=== PATIENT | male | born 1995 | race Caucasian/White ===

== ENCOUNTER 2021-11-18 11:21 | Inpatient (IN) ==
[2021-11-18] MEDS ORDERED: PIPERACILL/TAZOBAC CONSULT ACTIVE PRN ×2 (11:37→16:38)
[2021-11-18] MEDS ORDERED: PIPERACILLIN/TAZOBACTAM 4.5 GM/120 ML BAG IV ONE (11:37)
[2021-11-18] MEDS ORDERED: SODIUM CHLORIDE 0.9% 500 ML IV ONE (11:37)
--- NOTE | 2021-11-18 12:10 | Emergency Department Note ---
Impression & Plan Sepsis, Abdominal pain, Hyperglycemia, Acute leg pain ED Provider Note NAME: MANOJ CORTEZ AGE: 26 SEX: M : 1995 ARRIVES VIA: Walk-In INFORMANT: Patient ED PROVIDER(S): Dionte Angelo DO CHIEF COMPLAINT: left groin/thigh pain and fever HPI: Patient is a 26-year-old male with past medical history of dialysis dependent, diabetes, GERD, previous renal transplant who presents from dialysis today. He was there he was found to be febrile and tachycardic. His potassium was 6.7. He got a full treatment of dialysis as well as blood cultures and he was given IV vancomycin. He was then transported to the ER. They believe that he has infection overlying his fistula along with a fair amount of swelling. Patient denies any headache or change in vision. No chest pain or shortness of breath. He admits to belly pain and left leg pain. He is very agitated and cursing and swearing. ROS: See above HPI for pertinent positives & negatives. A total of 10 systems reviewed and were otherwise negative. PAST MEDICAL HISTORY:See Below PAST SURGICAL HISTORY:See Below FAMILY HISTORY:See Below SOCIAL HISTORY:See Below HOME MEDICATIONS:See Below ALLERGIES:See Below VITALS:See Below PHYSICAL EXAMINATION: GENERAL: Standing on the edge of bed screaming and yelling EYE EXAM: normal conjunctiva. OROPHARYNX:mucous membranes are dry NECK: supple, no nuchal rigidity, no adenopathy, non-tender LUNGS: Clear to auscultation. Normal chest wall mechanics HEART: tachy, S1 normal and S2 normal ABDOMEN: abdomen soft, non-tender, normo-active bowel sounds, no masses, no rebound or guarding. UPPER EXTREMITIES: Fistula in left upper extremity with overlying scab and re dness. It is bulging and skin is warm. LOWER EXTREMITIES: Flexion-extension of the hips knees ankles and EHL intact. Radial pulses are 2 out of 4. Significant pain on palpation of left inguinal canal and tracking to left mid thigh. Bruising just superior to the left distal femur on the medial aspect NEURO EXAM: Normal sensorium, cranial nerves II-XII grossly intact, normal speech, no gross weakness of arms, no gross weakness of legs. MEDICAL DECISION MAKING: Patient is a 26-year-old male with extensive past medical history the presents the ER for above-stated complaint. IV was established blood work was obtained. Sepsis alert was called. He was found to be febrile and tachycardic. He was given small amount IV fluids as he is a dialysis patient and concern for volume overload. He was not given 30 cc/kg secondary to this concern. Labs show mild leukopenia 4000. Mild anemia 10. Platelets were slightly low at 84. BMP with mild hyponatremia 131 and creatinine 3.6 on dialysis. BSG was 300 and then turned up to 400. He was placed on a insulin drip and given a bolus. Trend down to mid 300s. Troponin was tactile at 40. Mild elevation in LFTs and T bili. Covid was negative. CT abdomen pelvis showed no new acute pathology. Venous Doppler was negative. Did order an arterial which was pending upon admission. Patient was also given IV Zosyn. He was updated bedside. He was given IV morphine secondary to the severe pain in his leg. He was admitted for further work-up. Initial exam evaluation was limited secondary to patient's agitation. Triage Nursing notes reviewed. Limited review of prior medical records performed Vital Signs: reviewed and remarkable for tachy and HTN Differential diagnosis: Differential diagnosis includes etiologies such as sepsis, UTI, pneumonia, metabolic, electrolyte abnormalities, cardiac sources, intracerebral event, toxicologic, neurological, as well as others were entertained. ER treatment provided: See below Diagnostics interpreted by me: ECG: Sinus tachycardia rate of 115 Normal axis No PVCs QTC 453 Cardiac Monitoring: An order was placed for continuous cardiac monitoring. The monitor shows a rate of 120 with sinus rhythm. Laboratory studies: As stated above and show below. Imaging studies: CT abdomen pelvis was unremarkable. Chest x-ray was unremarkable. Ultrasound for DVT was negative. Arterial ultrasound was pending Consultation(s): D/alfie kilgore for further evaluation Procedures: none Critical Care: I have personally spent 32 minutes of critical care time in the direct management of this patient. This includes bedside care, interpretation of diagnostic studies, and testing, discussion with consultants, patient, and family members, and other required patient management activities. This 32 minutes is in excess of all separately billable procedures. Past Med/Surg History Surgical History History of circumcision History of laparoscopy History of nephrectomy Kidney transplanted Status post biopsy of kidney Family History Grandfather No problems noted. Grandmother No problems noted. Mother Depression Anxiety Grandfather (Maternal) Heart disease Hypertension Myocardial infarction Grandmother (Maternal) Hypertension Grandfather (Paternal) Kidney disease Denies family history of Ovarian cancer Prostate cancer Lung cancer Colorectal cancer Social History Smoking Status: Current every day smoker Tobacco Type: Cigarettes Age Started Using Tobacco: 15; packs per day: 0.50; Second Hand Exposure: Yes; Hx Alcohol Use: No Hx Substance Use: No Preferred Language: Thai Communication Ability: Effective Resource Recovery Specialist Required: No marital status: Single Current Living Situation: Family Current Living Situation 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 Feels Safe at Home: Yes Childhood Exposure to Second-Hand Smoke: Yes Seatbelt Use: never Sunscreen Use: No Allergies Allergies Allergy/AdvReac Type Severity Reaction Status Date / Time baclofen Allergy Unknown HIVES Verified 04/16/20 10:59 Iodinated Contrast Media Allergy Unknown RASH Verified 04/16/20 10:59 Sulfa (Sulfonamide Allergy Unknown RASH Verified 04/16/20 10:59 Antibiotics) Home Meds Home Medications Medication Instructions Recorded Confirmed omeprazole 40 mg capsule,delayed 40 mg PO DAILY PRN cap 09/28/19 04/16/20 release Previous Rx's Medication Instructions Recorded amlodipine 10 mg tablet 10 mg PO DAILY #90 tab 09/13/19 blood sugar diagnostic (OneTouch #300 ea 09/13/19 Ultra Blue Test Strip) calcium acetate(phosphat bind) 667 667 mg PO TID #270 cap 09/13/19 mg capsule carvedilol 25 mg tablet 50 mg PO BID #360 tab 09/13/19 cholecalciferol (vitamin D3) 1,250 1,250 mcg PO WEEKLY #12 cap 09/13/19 mcg (50,000 unit) capsule cinacalcet 30 mg tablet (Sensipar) 30 mg PO DAILY #90 tab 09/13/19 lancets 28 gauge (FreeStyle #300 ea 09/13/19 Lancets) hydralazine 100 mg tablet 100 mg PO BID #180 tab 12/24/19 clonidine 0.3 mg/24 hr weekly 1 patch TOPICAL .weekly #4 ea 11/04/20 transdermal patch insulin aspart U-100 100 unit/mL See Rx Instructions SQ .COMPLEX 05/27/21 (3 mL) subcutaneous pen (Novolog #15 ml Flexpen U-100 Insulin aspart) Results & Data (ED) Vital Signs Vital Signs - 24 hr 11/18/21 11:22 11/18/21 11:48 11/18/21 11:57 Temperature 38.1 C H Temperature Source Skin Pulse Rate 122 H 116 H Pulse Rate from SpO2 Sensor Respiratory Rate 24 24 Respiratory Effort / Characteristics Non-Labored Spontaneous Respiratory Depth Normal Respiratory Pattern Regular Blood Pressure 177/118 H Blood Pressure Mean 137 Pulse Oximetry 98 97 Oxygen Delivery Method Room Air Room Air Sepsis Recent Fever Within 48 Hours Yes Sepsis New/Unexplained Change in Mental Status N/A Sepsis Action Taken by Nursing No Action Required 11/18/21 12:10 11/18/21 12:15 11/18/21 12:24 Temperature Temperature Source Pulse Rate 109 H 111 H 112 H Pulse Rate from SpO2 Sensor 109 H 110 H 117 H Respiratory Rate 20 22 24 Respiratory Effort / Characteristics Respiratory Depth Respiratory Pattern Blood Pressure 187/96 H Blood Pressure Mean 126 Pulse Oximetry 94 95 94 Oxygen Delivery Method Sepsis Recent Fever Within 48 Hours Sepsis New/Unexplained Change in Mental Status Sepsis Action Taken by Nursing 11/18/21 12:30 11/18/21 12:45 11/18/21 13:00 Temperature Temperature Source Pulse Rate 113 H 112 H 116 H Pulse Rate from SpO2 Sensor 113 H 116 H Respiratory Rate 24 20 22 Respiratory Effort / Characteristics Respiratory Depth Respiratory Pattern Blood Pressure 181/99 H 189/100 H Blood Pressure Mean 126 129 Pulse Oximetry 93 97 Oxygen Delivery Method Sepsis Recent Fever Within 48 Hours Sepsis New/Unexplained Change in Mental Status Sepsis Action Taken by Nursing 11/18/21 13:15 11/18/21 13:30 11/18/21 13:44 Temperature Temperature Source Pulse Rate 116 H 120 H Pulse Rate from SpO2 Sensor 116 H 121 H Respiratory Rate 22 19 Respiratory Effort / Characteristics Respiratory Depth Respiratory Pattern Blood Pressure 185/101 H Blood Pressure Mean 129 Pulse Oximetry 91 97 98 Oxygen Delivery Method Room Air Sepsis Recent Fever Within 48 Hours Sepsis New/Unexplained Change in Mental Status Sepsis Action Taken by Nursing 11/18/21 13:45 11/18/21 14:00 11/18/21 14:15 Temperature Temperature Source Pulse Rate 115 H 115 H 112 H Pulse Rate from SpO2 Sensor 116 H 116 H 113 H Respiratory Rate 17 22 22 Respiratory Effort / Characteristics Respiratory Depth Respiratory Pattern Blood Pressure 181/100 H Blood Pressure Mean 127 Pulse Oximetry 93 93 81 L Oxygen Delivery Method Room Air Sepsis Recent Fever Within 48 Hours Sepsis New/Unexplained Change in Mental Status Sepsis Action Taken by Nursing 11/18/21 15:00 11/18/21 15:01 Temperature Temperature Source Pulse Rate 109 H 111 H Pulse Rate from SpO2 Sensor 108 H 109 H Respiratory Rate 13 16 Respiratory Effort / Characteristics Respiratory Depth Respiratory Pattern Blood Pressure 161/88 H Blood Pressure Mean 112 Pulse Oximetry 93 95 Oxygen Delivery Method Sepsis Recent Fever Within 48 Hours Sepsis New/Unexplained Change in Mental Status Sepsis Action Taken by Nursing Laboratory Data Result diagrams: 11/18/21 11:45 11/18/21 11:45 Lab Results 11/18/21 11/18/21 11/18/21 Range/Units 11:45 11:45 11:45 WBC 4.11 L (4.8-10.8) K/uL RBC 3.07 L (4.7-6.1) M/uL Hgb 10.0 L (14.0-18.0) g/dL Hct 31.7 L (42-52) % MCV 103.3 H (80-100) fL MCH 32.6 (25-34) pg MCHC 31.5 L (32-36) g/dL RDW Std Deviation 59.2 H (36.4-46.3) fL RDW Coeff of Kaylene 15.8 H (11.5-14.5) % Plt Count 84 L (130-400) K/uL MPV 11.4 H (7.4-10.4) fL Immature Gran % (Auto) 1.7 % Neut % (Auto) 92.8 % Lymph % (Auto) 4.1 % [place] % (Auto) 0.7 % Eos % (Auto) 0.5 % Baso % (Auto) 0.2 % Neut # (Auto) 3.81 (1.4-6.5) K/uL Lymph # (Auto) 0.17 L (1.2-3.4) K/uL [place] # (Auto) 0.03 L (0.11-0.59) K/uL Eos # (Auto) 0.02 (0-0.5) K/uL Baso # (Auto) 0.01 (0-0.2) K/uL Immature Gran # (Auto) 0.07 H (0.00-0.02) K/uL Platelet Estimate Decreased L (Normal) PT 13.6 H (9.0-12.0) Seconds INR 1.3 H (0.9-1.1) APTT 44.7 H (21.0-31.0) Seconds PTT Ratio 1.6 Sodium (136-145) mmol/L Potassium (3.5-5.1) mmol/L Chloride (98-107) mmol/L Carbon Dioxide (21-32) mmol/L Anion Gap (3-11) BUN (6-23) mg/dl Creatinine (0.6-1.4) mg/dl Est Cr Clr Drug Dosing ml/min Est GFR ( Amer) ml/min Est GFR (Non-Af Amer) ml/min BUN/Creatinine Ratio (10-20) Glucose (70-99(Fasting)) mg/dl POC Glucose (70-99) mg/dl Lactate (0.4-2.0) mmol/L Calcium (8.5-10.1) mg/dl Magnesium (1.7-2.4) mg/dl Total Bilirubin (0.2-1.0) mg/dl AST (13-39) U/L ALT (7-52) U/L Alkaline Phosphatase (34-104) U/L Troponin I High Sens 40.9 H (0-20) pg/ml Total Protein (6.0-8.3) gm/dl Albumin (3.4-5.0) gm/dl Globulin (2.5-4.0) gm/dl Albumin/Globulin Ratio (0.9-2) SARS-CoV-2, RNA, NAAT (NEGATIVE) 11/18/21 11/18/21 11/18/21 Range/Units 11:45 11:45 13:35 WBC (4.8-10.8) K/uL RBC (4.7-6.1) M/uL Hgb (14.0-18.0) g/dL Hct (42-52) % MCV (80-100) fL MCH (25-34) pg MCHC (32-36) g/dL RDW Std Deviation (36.4-46.3) fL RDW Coeff of Kalyene (11.5-14.5) % Plt Count (130-400) K/uL MPV (7.4-10.4) fL Immature Gran % (Auto) % Neut % (Auto) % Lymph % (Auto) % [place] % (Auto) % Eos % (Auto) % Baso % (Auto) % Neut # (Auto) (1.4-6.5) K/uL Lymph # (Auto) (1.2-3.4) K/uL [place] # (Auto) (0.11-0.59) K/uL Eos # (Auto) (0-0.5) K/uL Baso # (Auto) (0-0.2) K/uL Immature Gran # (Auto) (0.00-0.02) K/uL Platelet Estimate (Normal) PT (9.0-12.0) Seconds INR (0.9-1.1) APTT (21.0-31.0) Seconds PTT Ratio Sodium 131 L (136-145) mmol/L Potassium 4.8 (3.5-5.1) mmol/L Chloride 91 L (98-107) mmol/L Carbon Dioxide 27 (21-32) mmol/L Anion Gap 13 H (3-11) BUN 17 (6-23) mg/dl Creatinine 3.64 H (0.6-1.4) mg/dl Est Cr Clr Drug Dosing 25.6 ml/min Est GFR ( Amer) 25.0 ml/min Est GFR (Non-Af Amer) 21.5 ml/min BUN/Creatinine Ratio 4.7 L (10-20) Glucose 305 H* (70-99(Fasting)) mg/dl POC Glucose 416 H* (70-99) mg/dl Lactate 1.1 (0.4-2.0) mmol/L Calcium 8.7 (8.5-10.1) mg/dl Magnesium 1.9 (1.7-2.4) mg/dl Total Bilirubin 1.1 H (0.2-1.0) mg/dl AST 95 H (13-39) U/L ALT 63 H (7-52) U/L Alkaline Phosphatase 174 H (34-104) U/L Troponin I High Sens (0-20) pg/ml Total Protein 6.6 (6.0-8.3) gm/dl Albumin 3.8 (3.4-5.0) gm/dl Globulin 2.8 (2.5-4.0) gm/dl Albumin/Globulin Ratio 1.4 (0.9-2) SARS-CoV-2, RNA, NAAT (NEGATIVE) 11/18/21 11/18/21 Range/Units 13:40 14:59 WBC (4.8-10.8) K/uL RBC (4.7-6.1) M/uL Hgb (14.0-18.0) g/dL Hct (42-52) % MCV (80-100) fL MCH (25-34) pg MCHC (32-36) g/dL RDW Std Deviation (36.4-46.3) fL RDW Coeff of Kaylene (11.5-14.5) % Plt Count (130-400) K/uL MPV (7.4-10.4) fL Immature Gran % (Auto) % Neut % (Auto) % Lymph % (Auto) % [place] % (Auto) % Eos % (Auto) % Baso % (Auto) % Neut # (Auto) (1.4-6.5) K/uL Lymph # (Auto) (1.2-3.4) K/uL [place] # (Auto) (0.11-0.59) K/uL Eos # (Auto) (0-0.5) K/uL Baso # (Auto) (0-0.2) K/uL Immature Gran # (Auto) (0.00-0.02) K/uL Platelet Estimate (Normal) PT (9.0-12.0) Seconds INR (0.9-1.1) APTT (21.0-31.0) Seconds PTT Ratio Sodium (136-145) mmol/L Potassium (3.5-5.1) mmol/L Chloride (98-107) mmol/L Carbon Dioxide (21-32) mmol/L Anion Gap (3-11) BUN (6-23) mg/dl Creatinine (0.6-1.4) mg/dl Est Cr Clr Drug Dosing ml/min Est GFR ( Amer) ml/min Est GFR (Non-Af Amer) ml/min BUN/Creatinine Ratio (10-20) Glucose (70-99(Fasting)) mg/dl POC Glucose 367 H* (70-99) mg/dl Lactate (0.4-2.0) mmol/L Calcium (8.5-10.1) mg/dl Magnesium (1.7-2.4) mg/dl Total Bilirubin (0.2-1.0) mg/dl AST (13-39) U/L ALT (7-52) U/L Alkaline Phosphatase (34-104) U/L Troponin I High Sens (0-20) pg/ml Total Protein (6.0-8.3) gm/dl Albumin (3.4-5.0) gm/dl Globulin (2.5-4.0) gm/dl Albumin/Globulin Ratio (0.9-2) SARS-CoV-2, RNA, NAAT NEGATIVE (NEGATIVE) Administered Medications Insulin Human Regular 250 (units/ Sodium Chloride) 250 mls @ 0 mls/hr IV .Q0M [facility]; Protocol Stop: 12/18/21 13:59 Last Admin: 11/18/21 15:07 Dose: 2.2 units/hr, 2.2 mls/hr Documented by: [id number] Cosigned by: [id number] Discontinued Medications Acetaminophen (Acetaminophen 500 Mg Tab) 1,000 mg PO NOW STA Stop: 11/18/21 12:15 Last Admin: 11/18/21 12:47 Dose: 1,000 mg Documented by: [id number] Sodium Chloride (Nss) 500 mls @ 999 mls/hr IV .Q31M ONE Stop: 11/18/21 12:07 Last Infusion: 11/18/21 12:52 Dose: 0 mls/hr Documented by: [id number] Admin: 11/18/21 11:59 Dose: 999 mls/hr Documented by: [id number] Piperacillin Sod/Tazobactam Sod (Zosyn) 4.5 gm in 120 mls @ 240 mls/hr IV NOW ONE Stop: 11/18/21 12:06 Last Infusion: 11/18/21 13:13 Dose: 0 mls/hr Documented by: [id number] Admin: 11/18/21 12:18 Dose: 240 mls/hr Documented by: [id number] Morphine Sulfate (Morphine Sulfate 10 Mg/Ml Carp/Vial) 6 mg IV NOW STA Stop: 11/18/21 12:15 Last Admin: 11/18/21 12:18 Dose: 6 mg Documented by: [id number] Imaging Data Radiologist's Impression: Chest X-Ray 11/18/21 11:27 XR chest 1V portable CLINICAL HISTORY: SEPSIS. COMPARISON STUDY: 01/12/2016 TECHNIQUE: 1 view of the chest FINDINGS: Single frontal view of the chest demonstrates the cardiomediastinal silhouette to be within normal limits. There is a decreased inspiratory effort with elevation of the hemidiaphragms and crowding of the bronchovascular markings at the lung bases and centrally. The lungs are clear of alveolar opacities. There is no evidence for pleural effusion. There is no evidence for vascular congestion. There is no acute osseous pathology. IMPRESSION: 1. There is a decreased inspiratory effort with otherwise no acute chest disease. ACT 112: Negative or not required by law. Electronically signed by: Nick Baugh M.D. 11/18/2021 12:50 PM Venous Doppler Study 11/18/21 11:37 ULTRASOUND LEFT LOWER EXTREMITY VENOUS CLINICAL HISTORY: Left leg pain. COMPARISON STUDY: No priors. TECHNIQUE: Real-time, grayscale, and color Doppler sonography of the deep veins of the left lower extremity was performed from the inguinal crease to the calf. Compression and augmentation were utilized. FINDINGS: There is no sonographic evidence of deep venous thrombosis identified in the left lower extremity. The common femoral, superficial femoral, and popliteal veins are patent and normally compressible. The greater saphenous vein and the profunda femoris vein at the junction with the common femoral vein are clear. The visualized calf veins are patent. There are prominent benign- appearing left inguinal lymph nodes. No acute sonographic abnormality is identified in the distal thigh at the site of interest. IMPRESSION: 1. There is no sonographic evidence of deep venous thrombosis identified in the left lower extremity. 2. Prominent benign-appearing left inguinal lymph nodes are nonspecific and lik irene reactive. ACT 112: Negative or not required by law. Electronically signed by: Kyle Marlow M.D. 11/18/2021 3:09 PM Abdomen/Pelvis CT 11/18/21 11:39 CT abd pelvis wo con CLINICAL HISTORY: llq abd pain COMPARISON STUDY: 01/12/2016 CT DOSE: 354.88 mGycm TECHNIQUE: Standard CT of the Abdomen and Pelvis was performed without IV contrast. The patient did not receive oral contrast. A dose lowering technique was utilized adhering to the principles of ALARA. FINDINGS: Lung base: There is atelectasis at the left lung base. Lung bases are otherwise clear. Abdominal cavity: There is no evidence for abdominal mass, adenopathy or ascites. Liver: The liver is homogeneous in attenuation on these limited noncontrast mariana ges..There is mild hepatomegaly. Spleen: The spleen is homogeneous in attenuation on these limited noncontrast images. There is mild splenomegaly. Pancreas: The pancreas is homogeneous in attenuation on these limited noncontrast images. Gall Bladder: The gallbladder is contracted due to the patient's nonfasting state. Adrenal glands: The adrenal glands are normal in size and attenuation on these limited noncontrast images. Kidneys: There is again absence of the right kidney and marked atrophy of the left kidney. There is again evidence for a failed left renal transplant with increased dystrophic calcification within the left lower quadrant. There is again evidence for dilatation of the distal left ureter. Bowel: The bowel loops are normally placed within the abdomen and pelvis without evidence for dilatation or obstruction. There is no evidence for mass lesion. There are no inflammatory changes present. There is no evidence for free air. There is evidence for a normal appendix in the right lower quadrant. Bladder: There is no evidence for focal bladder wall thickening, calculus or diverticulum. : There is no evidence for pelvic mass or adenopathy. Vasculature: There is no evidence for focal aneurysmal dilatation of the abdominal aorta. Osseous structures: There is no acute osseous pathology. IMPRESSION: 1. Compared to the previous study, there is evidence for increase dystrophic calcification of what appears to be a rejected left renal transplant. 2. Otherwise, no acute intra-abdominal or pelvic abnormality on these limited noncontrast images. 3. There is again absence of the right kidney and marked atrophy of the left kidney. 4. There is again dilatation of the distal left ureter. 5. Additional nonacute findings are delineated above. ACT 112: Negative or not required by law. Electronically signed by: Nick Baugh M.D. 11/18/2021 12:29 PM Discharge Plan Visit Data Chief Complaint: Referred by Doctor Stated Complaint: fistula infected and possible clot or stroke ED Provider: Dionte Angelo Discharge Problem: Sepsis, Abdominal pain, Hyperglycemia, Acute leg pain Discharge Instructions Interventions: ED Discharge Assessment Last Done: 11/18/21 15:17 Forms Stand Alone Forms: My [facility] XO1 Prescriptions Prescriptions: No Action insulin aspart U-100 [Novolog Flexpen U-100 Insulin] 100 unit/mL (3 mL) insulin pen See Rx Instructions SQ .COMPLEX Qty: 15 RF: 4 amlodipine 10 mg tablet 10 mg PO DAILY Qty: 90 RF: 3 carvedilol 25 mg tablet 50 mg PO BID Qty: 360 RF: 3 cholecalciferol (vitamin D3) 1,250 mcg (50,000 unit) capsule 1,250 mcg PO WEEKLY Qty: 12 RF: 3 (DME) OneTouch Ultra Blue Test Strip Strip See Rx Instructions .ROUTE .MEDSUPPLY Qty: 300 RF: 3 cinacalcet [Sensipar] 30 mg tablet 30 mg PO DAILY Qty: 90 RF: 3 calcium acetate(phosphat bind) 667 mg capsule 667 mg PO TID Qty: 270 RF: 3 (DME) lancets [FreeStyle Lancets] 28 gauge misc See Rx Instructions .ROUTE .MEDSUPPLY Qty: 300 RF: 3 omeprazole 40 mg capsule,delayed release(DR/EC) 40 mg PO DAILY PRNRF: 0 hydralazine 100 mg tablet 100 mg PO BID Qty: 180 RF: 3 clonidine 0.3 mg/24 hr patch weekly 1 patch topical .weekly Qty: 4 RF: 5 Referrals Referrals: PCP,NO [Primary Care Provider] - Discharge Problem: Sepsis Qualifiers: Sepsis type: sepsis due to unspecified organism Sepsis acute organ dysfunction status: unspecified Qualified Code(s): A41.9 - Sepsis, unspecified organism Abdominal pain Qualifiers: Abdominal location: unspecified location Qualified Code(s): R10.9 - Unspecified abdominal pain Acute leg pain Qualifiers: Laterality: left Qualified Code(s): M79.605 - Pain in left leg
[2021-11-18] MEDS ORDERED: MoRPHine SULFATE 10 MG/ML CARP/VIAL IV STA (12:14)
[2021-11-18] MEDS: ACETAMINOPHEN 500 MG TAB PO STA ×2 (12:18→12:47)
[2021-11-18 12:22] LABS: INR 1.3 (0.9-1.1); Partial Thromboplastin Ratio 1.6; Partial Thromboplastin Time 44.7 Seconds (21.0-31.0); Prothrombin Time 13.6 Seconds (9.0-12.0)
[2021-11-18 12:29] LABS: Hematocrit (blood only) 31.7 % (42-52); Mean Corpuscular Hemoglobin 32.6 pg (25-34); Mean Corpuscular Hgb Conc 31.5 g/dL (32-36); Mean Corpuscular Volume 103.3 fL (80-100); Mean Platelet Volume 11.4 fL (7.4-10.4); Platelet Count 84 K/uL (130-400); RDW Coefficient of Variation 15.8 % (11.5-14.5); RDW Standard Deviation 59.2 fL (36.4-46.3); Red Blood Count 3.07 M/uL (4.7-6.1); White Blood Count 4.11 K/uL (4.8-10.8)
[2021-11-18 12:30] LABS: Basophils # (auto) 0.01 K/uL (0-0.2); Basophils % (auto) 0.2 %; Eosinophils # (auto) 0.02 K/uL (0-0.5); Eosinophils % (auto) 0.5 %; Immature Granulocytes # (auto) 0.07 K/uL (0.00-0.02); Immature Granulocytes % (auto) 1.7 %; Lymphocytes # (auto) 0.17 K/uL (1.2-3.4); Lymphocytes % (auto) 4.1 %; Monocytes # (auto) 0.03 K/uL (0.11-0.59); Monocytes % (auto) 0.7 %; Neutrophils # (auto) 3.81 K/uL (1.4-6.5); Neutrophils % (auto) 92.8 %; Platelet Estimate Decreased (Normal)
--- NOTE | 2021-11-18 12:30 | CT Scan Report ---
CT abd pelvis wo con CLINICAL HISTORY: llq abd pain COMPARISON STUDY: 01/12/2016 CT DOSE: 354.88 mGycm TECHNIQUE: Standard CT of the Abdomen and Pelvis was performed without IV contrast. The patient did not receive oral contrast. A dose lowering technique was utilized adhering to the principles of SARA Victor. FINDINGS: Lung base: There is atelectasis at the left lung base. Lung bases are otherwise clear. Abdominal cavity: There is no evidence for abdominal mass, adenopathy or ascites. Liver: The liver is homogeneous in attenuation on these limited noncontrast images..There is mild hep atomegaly. Spleen: The spleen is homogeneous in attenuation on these limited noncontrast images. There is mild s plenomegaly. Pancreas: The pancreas is homogeneous in attenuation on these limited noncontrast images. Gall Bladder: The gallbladder is contracted due to the patient's nonfasting state. Adrenal glands: The adrenal glands are normal in size and attenuation on these limited noncontrast im ages. Kidneys: There is again absence of the right kidney and marked atrophy of the left kidney. There is a gain evidence for a failed left renal transplant with increased dystrophic calcification within the l eft lower quadrant. There is again evidence for dilatation of the distal left ureter. Bowel: The bowel loops are normally placed within the abdomen and pelvis without evidence for dilatat ion or obstruction. There is no evidence for mass lesion. There are no inflammatory changes present. There is no evidence for free air. There is evidence for a normal appendix in the right lower quadran t. Bladder: There is no evidence for focal bladder wall thickening, calculus or diverticulum. : There is no evidence for pelvic mass or adenopathy. Vasculature: There is no evidence for focal aneurysmal dilatation of the abdominal aorta. Osseous structures: There is no acute osseous pathology. IMPRESSION: 1. Compared to the previous study, there is evidence for increase dystrophic calcification of what ap pears to be a rejected left renal transplant. 2. Otherwise, no acute intra-abdominal or pelvic abnormality on these limited noncontrast images. 3. There is again absence of the right kidney and marked atrophy of the left kidney. 4. There is again dilatation of the distal left ureter. 5. Additional nonacute findings are delineated above. ACT 112: Negative or not required by law. Electronically signed by: Nick Baugh M.D. 11/18/2021 12:29 PM
[2021-11-18 12:47] LABS: Albumin Globulin Ratio 1.4 (0.9-2); Albumin Level 3.8 gm/dl (3.4-5.0); BUN Creatinine Ratio 4.7 (10-20); Bilirubin,Total 1.1 mg/dl (0.2-1.0); Calcium 8.7 mg/dl (8.5-10.1); Creatinine Clr Calc Pharmacy 25.6 ml/min; Est GFR (Non-African American) 21.5 ml/min; Globulin 2.8 gm/dl (2.5-4.0); Magnesium 1.9 mg/dl (1.7-2.4); Potassium 4.8 mmol/L (3.5-5.1); Total Protein 6.6 gm/dl (6.0-8.3)
--- NOTE | 2021-11-18 12:53 | XRay Report ---
XR chest 1V portable CLINICAL HISTORY: SEPSIS. COMPARISON STUDY: 01/12/2016 TECHNIQUE: 1 view of the chest FINDINGS: Single frontal view of the chest demonstrates the cardiomediastinal silhouette to be within normal li mits. There is a decreased inspiratory effort with elevation of the hemidiaphragms and crowding of th e bronchovascular markings at the lung bases and centrally. The lungs are clear of alveolar opacities . There is no evidence for pleural effusion. There is no evidence for vascular congestion. There is n o acute osseous pathology. IMPRESSION: 1. There is a decreased inspiratory effort with otherwise no acute chest disease. ACT 112: Negative or not required by law. Electronically signed by: Nick Baugh M.D. 11/18/2021 12:50 PM
[2021-11-18] MEDS ORDERED: VANCOMYCIN CONSULT ACTIVE PRN (13:29)
[2021-11-18] MEDS ORDERED: VANCOMYCIN HCL 250 MG in DEXTROSE 5% 100 ML IV SCH (13:30)
--- NOTE | 2021-11-18 13:30 | History & Physical Report ---
Date of Service November 18, 2021 Assessment & Plan (1) Sepsis: Plan: Sepsis 2/2 cellulitis - L tenderness, warmth, erythema overlying L fistula - ?Seeding and fever after access - Pending fistulagram as outpatient. Pt is unclear on why, per pts mother had pain 'all over the back like he couldn't move.' Worsened L pain x2 days - White blood cell count 4.11, hemoglobin 10.0. Glucose 305. High-sensitivity troponin 40.9 PG/mL, bili/AST/ALT elevated. CTA/P: Evidence of increased dystrophic calcification of what appears to be rejected left renal transplant. No other acute intra-abdominal/pelvic abnormality. Absence of right kidney. Redemonstrated dilation of distal left ureter. No evidence of bladder/bowel wall thickening. Gallbladder contracted. -Blood cultures pending Suspect seeding with fever/chills after cellulitis accessed with dialysis Continue Vanco/Zosyn dialysis dosing ESRD management as below DKA management as below AST, ALT, high-sensitivity troponin all mildly elevated. Trend patient is without clinical chest pain/ST changes. 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 Reports he was due for a fistulogram and there was concerns for his fistula, but patient is not sure what these concerns were Vascular consulted, will need temporary catheter for dialysis defer fistula access in the setting of cellulitis Hypertension Hx obtained from [facility], patient a poor historian and mother did not have up-to-date medications. Patient did not have med list with him Per [facility] med rec where patient reports he feels all his meds most recent antihypertensives were metoprolol tartrate 50 mg once daily, doxazosin 2 mg twice daily, clonidine 0.3 mg twice daily although patient reports he only takes this nightly, and losartan 100 mg daily Patient reports he was previously on carvedilol this was switched to metoprolol. Reports he has taken this with his clonidine for a long time and it is worked well for Patient hypertensive, tachycardic on admission. Patient sensitive to fluid overload with dialysis dependence, intravascular depleted in the setting of sepsis. Given 500 cc in ER, defer additional fluid at this time. Will continue metoprolol once daily and clonidine once daily for dependence, hold for hypotension. Type II DM Complex insulin sensitivity due to type 1 diabetes in the setting of dialysis dependence and renal failure At home patient on insulin NovoLog sliding scale, will continue with pharmacy consultation for additional management - Insulin regimen: Since 6years old. 1 unit for every 15g of carbs with carb counting. CF/sliding scale started at 200 and for every 50 gets 1 extra unit. VBG pending BSG rising from 300-400s, insulin drip started. Patient with history of DKA. Anion gap 15. B-hb pending. Defer additional fluid at this time, received 500 cc in ER. Tachycardic and hypertensive - Labs Q2-->q4 GERD Omeprazole 40 mg p.o. daily Back pain, left leg pain Patient reports progressive weakness of the left leg with mid low back pain prior and in the last 3 days Reports his left leg feels weak, slightly different to the touch compared to the right Unable to assess urine hesitancy/incontinence/retention due to underlying ESRD No saddle anesthesia Lumbar MRI pending given progressive weakness and complex picture with inability to follow for urinary retention Dispo: PCU Diet: N.p.o. while on insulin drip DVT prophylaxis: SCDs, obtain Dopplers first CODE STATUS: Full code, surrogate decision-maker reviewed patient's mother who is listed as his primary contact (2) DM type 1 (diabetes mellitus, type 1): (3) CKD (chronic kidney disease) stage V requiring chronic dialysis: (4) GERD (gastroesophageal reflux disease): (5) HTN (hypertension): (6) S/P kidney transplant: History of Present Illness Primary Care Provider: NO PCP Wyatt is a 26-year-old male with a past medical history of kidney transplant with failure and rejection, type 1 diabetes, dialysis dependence, diabetes mellitus who presents after dialysis as a code sepsis with warmth/redness suspicious for cellulitis over his fistula. Potassium prior to dialysis was 6.7, on admission 4.8. Patient undergoes Tuesday dialysis. On arrival to ER patient is treated with Zosyn, did receive a postdialysis dose of vancomycin. Patient somnolent, arouses with some difficulty then is well oriented and answers question sapproprioately L Leg pain up into back x2 days. Increased nat since last night, went to ER in [place] --> dc home. Progres sively weak This AM at dialysis +fever, chills, couldn't walk after. Fever chills worsened after fistula access. Fistula red and warm, pt not sure how long thinks a day or two. Did get vanco after access. Denies other skin infections. Reports he feels achy all over, but denies shortness of breath, difficulty breathing, chest pain, chest pressure, nausea, vomiting. Dr. Vielka Groves. Was to get fistulagram and possible catheter placement tomorrow. Evita Cardona PCP unavailable by phone, mother is not aware or most recent meds, pt does not have med list. Per [facility] (pt reprots fills all meds there) meds current as follows" Sevelemer 800mg QID, 2 with snacks Novolog 100u FLEXPEN SSI max 60units day Metoprolol Tart 50mg one a day Doxazosin 2mg BID Clonidine 0.3mg TWICE dialy (per pt HS) Losartan 100mg daily NO AMLODIPINE NO CARVEDILOL Medical History: Reviewed Medications: Reviewed Surgical History: Reviewed Allergies: Reviewed Social History:Cigarettes, none recently. 0.5ppd. EtoH none. No RR/MM. Code Status: Full Code Allergies Allergy/AdvReac Type Severity Reaction Status Date / Time baclofen Allergy Unknown HIVES Verified 04/16/20 10:59 Iodinated Contrast Media Allergy Unknown RASH Verified 04/16/20 10:59 Sulfa (Sulfonamide Allergy Unknown RASH Verified 04/16/20 10:59 Antibiotics) Home Medications Medication Instructions Recorded Confirmed Type amlodipine 10 mg tablet 10 mg PO DAILY #90 tab 09/13/19 04/16/20 Rx blood sugar diagnostic (OneTouch #300 ea 09/13/19 04/16/20 Rx Ultra Blue Test Strip) calcium acetate(phosphat bind) 667 667 mg PO TID #270 cap 09/13/19 04/16/20 Rx mg capsule carvedilol 25 mg tablet 50 mg PO BID #360 tab 09/13/19 04/16/20 Rx cholecalciferol (vitamin D3) 1,250 1,250 mcg PO WEEKLY #12 cap 09/13/19 04/16/20 Rx mcg (50,000 unit) capsule cinacalcet 30 mg tablet (Sensipar) 30 mg PO DAILY #90 tab 09/13/19 04/16/20 Rx lancets 28 gauge (FreeStyle #300 ea 09/13/19 04/16/20 Rx Lancets) omeprazole 40 mg capsule,delayed 40 mg PO DAILY PRN cap 09/28/19 04/16/20 History release hydralazine 100 mg tablet 100 mg PO BID #180 tab 12/24/19 04/16/20 Rx clonidine 0.3 mg/24 hr weekly 1 patch TOPICAL .weekly #4 ea 11/04/20 11/04/20 Rx transdermal patch insulin aspart U-100 100 unit/mL See Rx Instructions SQ .COMPLEX 05/27/21 Rx (3 mL) subcutaneous pen (Novolog #15 ml Flexpen U-100 Insulin aspart) Past Med/Surg History Surgical History History of circumcision History of laparoscopy History of nephrectomy Kidney transplanted Status post biopsy of kidney Family History Grandfather No problems noted. Grandmother No problems noted. Mother Depression Anxiety Grandfather (Maternal) Heart disease Hypertension Myocardial infarction Grandmother (Maternal) Hypertension Grandfather (Paternal) Kidney disease Denies family history of Ovarian cancer Prostate cancer Lung cancer Colorectal cancer Social History Smoking Status: Current every day smoker Tobacco Type: Cigarettes Age Started Using Tobacco: 15; packs per day: 0.50; Second Hand Exposure: Yes; Hx Alcohol Use: No Hx Substance Use: No Preferred Language: Peruvian Communication Ability: Effective White Spooler Required: No marital status: Single Current Living Situation: Family Current Living Situation Comment: 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 NAD. Cooperative. Patient extremely somnolent, awakens with some difficulty but then answers questions appropriately and is well oriented. Skin is flushed and warm. HEENT: Atraumatic, normocephalic. Vision and hearing grossly intact. Pulm: CTAB A&P. -wheezes, -rales, -rhonchi. Symmetrical chest rise. No increase in work of breathing. No respiratory distress. Cardiac: Regular tachycardic with systolic murmur. Radial pulses intact and symmetrical. Abdominal: Nontender, nondistended, soft. BS present. Extremities: Left lower extremity diffusely tender to the touch. Hip flexion, ankle dorsiflexion/plantarflexion both week and pain limited. No calf asymmetry. No skin erythema/warmth. Right hip flexion, ankle dorsiflexion/plantarflexion intact with 5/5 strength and normal sensation to soft touch. No saddle anesthesia. Left upper extremity with AV fistula in place, overriding warmth, tenderness, and erythema on admitting exam. Overlying small blood clot at site of access for dialysis earlier today. Strong thrill on palpation. He is tender to palpation and patient reports that "pain feels deep ". Right extremity atraumatic, without warmth/erythema. Results & Data Results & Data ([facility]) Vital Signs (Past 12 Hours) Vital Signs Temp Pulse Resp BP Pulse Ox 11/18/21 13:00 116 H 22 189/100 H 97 11/18/21 12:45 112 H 20 93 11/18/21 12:30 113 H 24 181/99 H 11/18/21 12:24 112 H 24 187/96 H 94 11/18/21 12:15 111 H 22 95 11/18/21 12:10 109 H 20 94 11/18/21 11:57 97 11/18/21 11:48 116 H 24 11/18/21 11:22 38.1 C H 122 H 24 177/118 H 98 PG Care Time/CCT Total # of Minutes Spent Total Time Spent with Patient: Total time spent is greater than 50% in coordination of care (as documented) at patient's floor/unit and/or counseling patient: Coding Level of Care Code 47890 Initial Inpt Care Lvl 3 Diagnoses Sepsis A41.9 DM type 1 (diabetes mellitus, type 1) E10.9 CKD (chronic kidney disease) stage V requiring chronic dialysis N18.6; Z99.2 GERD (gastroesophageal reflux disease) K21.9 HTN (hypertension) I10 S/P kidney transplant Z94.0
[2021-11-18] MEDS ORDERED: STAT IV Infusion **Titration per Protocol STA ×2 (13:46→14:31)
[2021-11-18] MEDS ORDERED: INSULIN PROTOCOL GOAL RANGE ONE (13:46)
[2021-11-18] MEDS ORDERED: NovoLIN-R BOLUS FROM BAG IV ONE (15:07)
[2021-11-18] MEDS: INSULIN REGULAR 250 UNITS in SODIUM CHLORIDE 0.9% 247.5 ML IV SCH ×2 (15:07→17:12)
--- NOTE | 2021-11-18 15:10 | Ultrasound Report ---
ULTRASOUND LEFT LOWER EXTREMITY VENOUS CLINICAL HISTORY: Left leg pain. COMPARISON STUDY: No priors. TECHNIQUE: Real-time, grayscale, and color Doppler sonography of the deep veins of the left lower ext remity was performed from the inguinal crease to the calf. Compression and augmentation were utilized . FINDINGS: There is no sonographic evidence of deep venous thrombosis identified in the left lower ext remity. The common femoral, superficial femoral, and popliteal veins are patent and normally compress ible. The greater saphenous vein and the profunda femoris vein at the junction with the common femora l vein are clear. The visualized calf veins are patent. There are prominent benign-appearing left ing uinal lymph nodes. No acute sonographic abnormality is identified in the distal thigh at the site of interest. IMPRESSION: 1. There is no sonographic evidence of deep venous thrombosis identified in the left lower extremity. 2. Prominent benign-appearing left inguinal lymph nodes are nonspecific and likely reactive. ACT 112: Negative or not required by law. Electronically signed by: Kyle Marlow M.D. 11/18/2021 3:09 PM
--- NOTE | 2021-11-18 15:38 | Ultrasound Report ---
US arterial duplex left lower extremity CLINICAL HISTORY: Left leg pain. COMPARISON STUDY: None. FINDINGS: There are monophasic waveforms seen throughout the left lower extremity arterial system. No occlusion identified. Slightly elevated peak velocities within the left superficial femoral artery o f 206 cm/s. However, no evidence for stenosis on grayscale imaging. IMPRESSION: Monophasic waveforms seen throughout the left lower extremity arterial system. This sugg ests proximal stenosis. No evidence for occlusion within the left lower extremity. ACT 112: Negative or not required by law. Electronically signed by: Sidney Nair M.D. 11/18/2021 3:36 PM
[2021-11-18] MEDS ORDERED: INSULIN ASPART PER UNIT SC SCH (16:30)
[2021-11-18] MEDS ORDERED: PHARMACY GLYCEMIC MGMT CONSULT PRN (16:38)
[2021-11-18] MEDS: SEVERE STRESS LEVEL SCH ×5 (17:12→17:19)
[2021-11-18] MEDS ORDERED: GLUCOSE 40% GEL 15 GM TUBE PO PRN (17:15)
[2021-11-18] MEDS ORDERED: GLUCAGON FOR INJ 1 MG VIAL IM PRN (17:15)
[2021-11-18] MEDS ORDERED: GLUCOSE 10 TABS/TUBE PO PRN (17:15)
--- NOTE | 2021-11-18 17:38 | Pharmacy Report ---
Pharmacy Glycemic Short Note 2 - Date of Service November 18, 2021 - Glycemic Short BSG Results (Last 24 hours): 11/18/21 11/18/21 11/18/21 11:45 13:35 14:59 Glucose 305 H* POC Glucose 416 H* 367 H* 11/18/21 11/18/21 16:18 16:59 Glucose POC Glucose 308 H* 296 H OUTPATIENT ANTIDIABETIC REGIMEN: * Clarifying basal regimen * Per Dr. Frias - patient's family reported he was not on basal but thinks he is type 1 and patient reported the same. Dr. Frias called [facility] who had same info. PCP office is closed at this time. Dr. Frias to continue to inquire and will follow up. * Novolog * Correction factor: 50 mg/dL/unit, starting above 200 mg/dL * Carb ratio: 15 g CHO/unit * HbA1c outdated, but not repeated given ESRD * HbA1c somewhat unreliable in ESRD patients d/t interactions between the A1c analyzing technique and high levels of urea in ESRD, reduced RBC life span, iron deficiency anemia, and EPO administration. HbA1c > 7.5% in ESRD patient may overestimate the extent of hyperglycemia in ESRD patients. 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 Will hopefully be able to attempt transition tomorrow AM after further clarification regarding outpatient regimen. PLAN FOR INPATIENT GLYCEMIC CONTROL: * Insulin drip - severe stress, goal range 110-180 mg/dL * Bolus insulin * Nutritional / Prandial insulin per carb ratio based on insulin drip calculator
[2021-11-18] MEDS: METOPROLOL TARTRATE 50 MG TAB PO SCH (18:14)
[2021-11-18] MEDS: SEVELAMER HCL 800 MG TABLET PO SCH (18:15)
--- NOTE | 2021-11-18 18:26 | Communication Note ---
Date of Service: November 18, 2021 Patient alertness significantly improved on afternoon reassessment. Patient does continue to have acute pain worsened by palpation in his left proximal me dial thigh which was worsened following pressure with his ultrasound. Ultrasound did show monophasic flow, patient has intact palpable distal extremity pulses and his pain is focal in the groin. Given unilateral findings and metrical intact sensation on reexam, and patient reporting weakness which is actually pain limited but would be full strength without his discomfort will defer MRI. Area is without warmth, crepitus, swelling, or erythema. No palpable thrill/pulsation or area of tenderness. CT ordered for characterization, contrast limited by both allergy and ESRD and potential need for fistulogram pending vascular evaluation. We will continue to follow above.
[2021-11-18] MEDS ORDERED: PIPERACILLIN/TAZOBACTAM 4.5 GM in DEXTROSE 5% 100 ML IV SCH (20:00)
[2021-11-18] MEDS ORDERED: PIPERACILLIN/TAZOBACTAM 3.375 GM in DEXTROSE 5% 100 ML IV SCH (20:00)
[2021-11-18] MEDS: DOXAZosin MESYLATE TAB 2 MG TAB PO SCH (20:22)
[2021-11-18] MEDS: cloNIDine HCL 0.3 MG TAB PO SCH (20:23)
[2021-11-18] MEDS ORDERED: carvediloL 25 MG TAB PO SCH (21:00)
[2021-11-18] MEDS ORDERED: HYDROmorphone INJ 0.5 MG/0.5 ML SYR IV PRN ×2 (21:02→21:05)
[2021-11-18] MEDS: HYDROmorphone INJ 0.5 MG/0.5 ML SYR IV PRN (21:35)
--- NOTE | 2021-11-18 21:38 | Pharmacy Report ---
Pharmacy [facility] Short Note - Date of Service November 18, 2021 - Assessment & Plan Assessment * 26 year old M receiving Zosyn and vancomycin for treatment of sepsis 2nd cellulitis. * ESRD with HD - received HD prior to arrival. Given vancomycin 1 g prior to arrival as well * Ordered random vancomycin level - patient refused. Re-ordered for 2029 with other labs Plan * Obtain random level as soon as patient allows to determine if additional vancomycin is needed Pharmacy will continue to follow and will adjust dose/frequency as necessary. Thank you.
--- NOTE | 2021-11-18 22:15 | Communication Note ---
Date of Service: November 18, 2021 Patient refusing lab draws. After midnight, agreed to lab draw. Elevated Cr consistent w/ esrd on dialysis noted. Pain control requested by patient: ordered dilaudid 0.1mg q6h prn, renally dosed.
[2021-11-18] MEDS: DEXTROSE 50% 50 ML SYRINGE IV PRN (23:22)
[2021-11-18] MEDS: ACETAMINOPHEN 325 MG TAB PO PRN (23:32)
[2021-11-19 00:48] LABS: BUN Creatinine Ratio 6.9 (10-20); Calcium 8.5 mg/dl (8.5-10.1)
[2021-11-19 00:50] LABS: Est GFR (African American) 18.1 ml/min; Est GFR (Non-African American) 15.6 ml/min
[2021-11-19] MEDS: HYDROmorphone INJ 0.5 MG/0.5 ML SYR IV PRN (05:23)
[2021-11-19] MEDS ORDERED: VANCOMYCIN HCL 500 MG in DEXTROSE 5% 100 ML IV ONE (06:00)
--- NOTE | 2021-11-19 06:31 | Electrocardiogram Report ---
Test Reason : Blood Pressure : / mmHG Vent. Rate : 115 BPM Atrial Rate : 115 BPM P-R Int : 138 ms QRS Dur : 080 ms QT Int : 328 ms P-R-T Axes : 028 038 068 degrees QTc Int : 453 ms Sinus tachycardia Otherwise normal ECG When compared with ECG of 12-JAN-2016 15:29, Peaked T waves are no longer present Confirmed by Deng Chavez ([id number]) on 11/19/2021 6:31:03 AM Referred By: REFERRED SELF Confirmed By:Deng Chavez
--- NOTE | 2021-11-19 07:41 | CT Scan Report ---
LEFT FEMUR CT CT DOSE: 291.96 mGy.cm HISTORY: prox medial thigh acute worsening pain TECHNIQUE: Multiaxial CT images of the left femur were performed and reformatted in the sagittal and coronal plane without the use of contrast. A dose lowering technique was utilized adhering to the pr inciples of MULU. COMPARISON: Abdomen and pelvis CT 11/18/2021. FINDINGS: No fracture or dislocation within the left femur. Mild subcutaneous trace edema within the left thigh. Small left knee effusion. Focal superficial fatty density within the anterior mid left th igh measuring 8.3 x 5.2 x 2.3 cm. This contains a small amount of soft tissue density. This could rep resent a lipoma or possibly a developing liposarcoma given the small amount of internal soft density. Mild vascular calcifications are noted. Small cortical desmoid within the lateral femoral condyle. T his is considered to be benign. IMPRESSION: 1. No fracture or dislocation within the left femur. 2. Mild subcutaneous edema within the left lower extremity. 3. Small left knee effusion. 4. Focal superficial fatty density within the anterior mid left thigh measuring 8.3 x 5.2 x 2.3 cm. T his contains a small amount of soft tissue density. This could represent a lipoma or possibly a devel oping liposarcoma given the small amount of internal soft density. Surgical consultation recommended. ACT 112: Positive. There are findings on this exam that require communication between the performing entity and the patient following Patient Test Result Information Act ([place] Act 112) guidelines. Electronically signed by: Sidney Nair M.D. 11/19/2021 7:39 AM
--- NOTE | 2021-11-19 08:09 | Hospitalist Progress Note ---
Date of Service November 19, 2021 Assessment & Plan (1) Sepsis: Plan: Sepsis 2/2 cellulitis with bacteremia w/ infected fistula - L tenderness, warmth, erythema overlying L fistula - ?Seeding and fever after access - Pending fistulagram as outpatient. Pt is unclear on why, per pts mother had pain 'all over the back like he couldn't move.' Worsened L pain x2 days - White blood cell count 4.11, hemoglobin 10.0. Glucose 305. High-sensitivity troponin 40.9 PG/mL, bili/AST/ALT elevated. CTA/P: Evidence of increased dystrophic calcification of what appears to be rejected left renal transplant. No other acute intra-abdominal/pelvic abnormality. Absence of right kidney. Redemonstrated dilation of distal left ureter. No evidence of bladder/bowel wall thickening. Gallbladder contracted. -Blood cultures positive x2 for gram-positive cocci in clusters Suspect seeding with fever/chills after cellulitic fistula Vanc/Zosyn --> rocephin/Zosyn Echo pending ESRD management as below - Hyperglycemia/DM management as below AST, ALT, high-sensitivity troponin all mildly elevated. Trend patient is without clinical chest pain/ST changes. Patient will require alternative access for dialysis, however this is limited by acute gram-positive bacteremia. Surveillance cultures drawn. - Fistula Duplex: 1. A left upper extremity dialysis fistula is patent as above.. A 3.2 cm complex nonvascular fluid collection along the distal aspect of the fistula is typical appearance for a hematoma. Clinical correlation will be required. - Vascular consulted. Fisula infected which contains stents which may also be infected, and proximal portion concerning for imminent rupture. Recommended for emergent removal of fistula and any infected vein. (2) DM type 1 (diabetes mellitus, type 1): Plan: Type I DM Complex insulin sensitivity due to type 1 diabetes in the setting of dialysis dependence and renal failure At home patient on insulin NovoLog sliding scale, patient reports he had Lantus stopped due to recurrent hypoglycemic episodes overnight and has not been on any basal despite being type I in several months. Thinks was only on 6-8 units of long acting. - Insulin regimen: Reports since 6years old. 1 unit for every 15g of carbs with carb counting. CF/sliding scale started at 200 and for every 50 gets 1 extra unit. Glucose trending up over 400 on admission, was placed on insulin drip with normalization of glucose, and conversion back to subcu. Gap decreased from 13- 9. AM bsg 127. May convert to basal/bolus insulin. Will use very low basal dose given above, 3 units lantus and SSI. -Patient on carb controlled diet, has been brought in food and large amounts of sweet tea by his girlfriend which was not being reported. Discussed that this is likely to cause his blood sugar to go very high, and that his blood sugar has just returned to normal after being over 400 last night and which caused him to be on insulin drip. Recheck pending, anticipate patient will need additional scale for undocumented tea/food. Pt told must be NPO pending vascular eval. 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 Reports he was due for a fistulogram and there was concerns for his fistula, but patient is not sure what these concerns were Vascular consulted, will need temporary access for dialysis however this is limited by acute bacteremia with pending surveillance cultures as above No acute volume overload or hyperkalemia today, will likely need dialysis sebastien orrow or the day after. If requires HD tomorrow will need line placement, will need negative cultures for least 48 hours prior to tunneled placement. Dialysis diet when no longer n.p.o. mag, Phos pending a.m. (4) GERD (gastroesophageal reflux disease): Plan: GERD Omeprazole 40 mg p.o. daily (5) HTN (hypertension): Plan: Hypertension Hx obtained from [facility], patient a poor historian and mother did not have up-to-date medications. Patient did not have med list with him Per [facility] med rec where patient reports he feels all his meds most recent antihypertensives were metoprolol tartrate 50 mg once daily, doxazosin 2 mg twice daily, clonidine 0.3 mg twice daily although patient reports he only takes this nightly, and losartan 100 mg daily. Patient reports he is no longer taking doxazosin. Patient reports he was previously on carvedilol this was switched to metoprolol. Reports he has taken this with his clonidine for a long time and it is worked well for him Patient hypertensive, tachycardic on admission. Patient sensitive to fluid overload with dialysis dependence, intravascular depleted in the setting of sepsis. Given 500 cc in ER, defer additional fluid at this time. Will continue metoprolol once daily and clonidine once daily for dependence, hold for hypotension. (6) S/P kidney transplant: Plan: - ESRD management as above (7) Acute leg pain: Plan: Left leg pain Severe pain of proximal mid thigh exquisitely tender to palpation CT Femur: Focal superficial fatty density within the anterior mid left thigh measuring 8.3 x 5.2 x 2.3 cm. This contains a small amount of soft tissue density. This could represent a lipoma or possibly a developing liposarcoma given the small amount of internal soft density. Surgical consultation recommended. Mild subcutaneous edema within the left lower extremity. - Surgical consult placed for soft tissue density above. 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 Would not pursue excision at this time, can have outpatient follow-up if continues to be bothersome. Noted excision may cause more morbidity than removal is worth. Appreciate recommendations. - LLE Arterial Doppler: Monophasic waveforms seen throughout the left lower extremity arterial system. This suggests proximal stenosis. No evidence for occlusion within the left lower extremity. Plan: Dispo: PCU Diet: DM1 DVT prophylaxis: SCD CODE STATUS: Full code, surrogate decision-maker reviewed patient's mother who is listed as his primary contact Admission and Anticipated Discharge Date Admission Date: November 18, 2021 Subjective Seen at bedside in morning, and midmorning on reassessment. Patient has worsening pain at his left arm/fistula site which is spreading up to the mid arm. Reports the arm is more uncomfortable than last night. Overlying erythema is a little better, but overall feels worse. Denies fever/chills overnight. Patient is extremely frustrated by his course, and refused blood draws/fistula ultrasound this morning. Was hyperglycemic, on insulin drip and had his girlfriend bring him a pizza and sweet tea in bed. Feels like the antibiotics are not working. Reviewed clinical course with patient. Discussed that he has bacteria in his blood which likely seeded from his fistula which has signs of an overriding and potential internal infection which may have seeded during his dialysis. Discussed that his fistula itself may be infected, and that the ultrasound ordered will help visualize/characterize the fistula as a first step, knowing that fistulogram is limited by his contrast allergy. Patient initially refusing this, is amenable and agreeable following discussion. Patient refusing blood cultures this morning, we discussed that in order to place a tunneled catheter he must have negative blood cultures for a period of time and that surveillance cultures should be drawn until negative. Patient expresses frustration over this. Review of Systems Review of Systems: Constitutional: Endorses feeling poorly overnight, denies fever/chills. Tired. Endorses diffuse body aches. Eyes: Denies vision change ENT: Denies ear pain, sore throat, sinus pain Cardiovascular: Denies Chest pain, chest pressure, palpitations Respiratory: Denies shortness of breath, cough, sputum production Gastrointestinal: Denies nausea, vomiting, constipation, diarrhea Genitourinary: Denies dysuria, urinary frequency Musculoskeletal: Endorses pain in the left mid thigh unchanged from prior, and worsened pain at his left fistula Integumentary: Endorses redness over his fistula as previously noted Physical Exam Physical Exam: General: Much more alert today than on prior exam. Alert and oriented x3. HEENT: Atraumatic, normocephalic. Vision and hearing grossly intact. Pulm: CTAB A&P. -wheezes, -rales, -rhonchi. Symmetrical chest rise. No increase in work of breathing. No respiratory distress. Cardiac: RRR with systolic murmur. Radial pulses intact and symmetrical. Abdominal: Nontender, nondistended, soft. BS present. Extremities: Left lower extremity diffusely tender to the touch, remains focally tender at medial upper thigh. Refuses strength exam. Left upper extremity with AV fistula in place, overriding warmth, tenderness, and erythema on admitting exam. Erythema somewhat improved from prior. Remains tender to palpation and is tender to palpation proximal to the fistula Right extremity atraumatic, without warmth/erythema. Results & Data Results & Data ([facility]) Vital Signs (Past 12 Hours) Vital Signs Temp Pulse Resp BP Pulse Ox 11/19/21 07:04 37.1 C 93 H 16 151/101 H 95 11/19/21 04:16 37.4 C 80 16 147/89 H 99 11/18/21 23:10 37.2 C 94 H 16 144/91 H 96 11/18/21 21:05 37.4 C 11/18/21 19:58 37.8 C H 93 H 16 145/91 H 98 PG Care Time/CCT Total # of Minutes Spent Total Time Spent with Patient: Total time spent is greater than 50% in coordination of care (as documented) at patient's floor/unit and/or counseling patient: Coding Level of Care Code 14814 Subseq Hosp Care Lvl 3 Diagnoses Sepsis A41.9 DM type 1 (diabetes mellitus, type 1) E10.9 CKD (chronic kidney disease) stage V requiring chronic dialysis N18.6; Z99.2 GERD (gastroesophageal reflux disease) K21.9 HTN (hypertension) I10 S/P kidney transplant Z94.0 Acute leg pain M79.605 Laterality: left (1) Acute leg pain Laterality: left Qualified Code(s): M79.605 - Pain in left leg
[2021-11-19] MEDS ORDERED: INSULIN GLARGINE SOLOSTAR 100 UNITS/ML 3 ML PEN SC ONE (08:15)
[2021-11-19] MEDS: PANTOprazole 40 MG TAB PO SCH ×2 (08:43→09:25)
[2021-11-19] MEDS: SEVELAMER HCL 800 MG TABLET PO SCH ×3 (08:44→19:29)
[2021-11-19] MEDS: DOXAZosin MESYLATE TAB 2 MG TAB PO SCH ×2 (08:45→09:34)
[2021-11-19] MEDS: cloNIDine HCL 0.3 MG TAB PO SCH ×3 (08:45→19:50)
[2021-11-19] MEDS: METOPROLOL TARTRATE 50 MG TAB PO SCH ×2 (08:46→09:25)
[2021-11-19] MEDS: LOSARTAN POTASSIUM 50 MG TAB PO SCH ×2 (08:46→09:25)
[2021-11-19] MEDS: cefTRIAXone SODIUM 2,000 MG in DEXTROSE 5% 50 ML IV SCH (08:48)
--- NOTE | 2021-11-19 08:51 | Surgery Consultation ---
Date of Consultation November 19, 2021 Assessment & Plan (1) Mass of left thigh: This is a 26y M with a PMH of DM, failed kidney transplant currently on dialysis who presents to the [facility] ED on 11/18/21 with fevers and left leg pain. He is found to have overlying cellulitis of his LUE fistula and is + for GPC bacteremia. Today surgery was consulted for evaluation of left leg mass evaluated on a CT femur with read showing a superficial fatty density within the anterior mid left thigh measuring 8.3 x 5.2 x 2.3 cm representing a possible lipoma vs. liposarcoma. Patient says this has been present for quite some time and is the same area he has been previously using for insulin injection. On exam the area is slightly tender to palpation with associated mild ecchymosis consistent with recent injections. Patient is currently being treated for bacteremia and awaiting vascular consultation given findings surrounding his fistula. Regarding the left thigh mass we would be happy to evaluate the patient as an outpatient for consideration of possible elective removal of mass if indicated. No plans for surgical intervention this admission from our standpoint. Please call with questions/concerns. (2) Acute leg pain: Supervising Physician Co-Signing Physician Notes Dr. Traorepatient has a mass on the anterior distal left thigh He says he has had it for many years but has also been injecting his insulin into this area On imaging it does appear to be a lipoma with no significant fascial involvement I would not pursue surgical excision of this at this point He can return to my office at some point in the future if he wishes to have it addressed Excision may cause more morbidity than it is really worth-very doubtful this is a liposarcoma History of Present Illness Attending Physician: Morro Frias MD History of Present Illness This is a 26y M with a PMH of DM, failed kidney transplant currently on dialysis who presents to the [facility] ED on 11/18/21 with fevers in addition to left leg pain. Today surgery was consulted for evaluation of left leg mass evaluated on a CT fe mur with read showing a possible lipoma vs. liposarcoma. Patient reports the area of concern has been there for years and it is the site he has been using for insulin injection up until recently. He does express new left leg pain that has been progressing over the last few days. He states it's mostly in his groin and radiates into his back. He is concerned about his infection that brought him in and expresses annoyance with me upon my interview about his LLE CT scan findings. Allergies Allergy/AdvReac Type Severity Reaction Status Date / Time baclofen Allergy Unknown HIVES Verified 04/16/20 10:59 Iodinated Contrast Media Allergy Unknown RASH Verified 04/16/20 10:59 Sulfa (Sulfonamide Allergy Unknown RASH Verified 04/16/20 10:59 Antibiotics) Home Medications Medication Instructions Recorded Confirmed Type amlodipine 10 mg tablet 10 mg PO DAILY #90 tab 09/13/19 04/16/20 Rx blood sugar diagnostic (OneTouch #300 ea 09/13/19 04/16/20 Rx Ultra Blue Test Strip) calcium acetate(phosphat bind) 667 667 mg PO TID #270 cap 09/13/19 04/16/20 Rx mg capsule carvedilol 25 mg tablet 50 mg PO BID #360 tab 09/13/19 04/16/20 Rx cholecalciferol (vitamin D3) 1,250 1,250 mcg PO WEEKLY #12 cap 09/13/19 04/16/20 Rx mcg (50,000 unit) capsule cinacalcet 30 mg tablet (Sensipar) 30 mg PO DAILY #90 tab 09/13/19 04/16/20 Rx lancets 28 gauge (FreeStyle #300 ea 09/13/19 04/16/20 Rx Lancets) omeprazole 40 mg capsule,delayed 40 mg PO DAILY PRN cap 09/28/19 04/16/20 History release hydralazine 100 mg tablet 100 mg PO BID #180 tab 12/24/19 04/16/20 Rx clonidine 0.3 mg/24 hr weekly 1 patch TOPICAL .weekly #4 ea 11/04/20 11/04/20 Rx transdermal patch insulin aspart U-100 100 unit/mL See Rx Instructions SQ .COMPLEX 05/27/21 Rx (3 mL) subcutaneous pen (Novolog #15 ml Flexpen U-100 Insulin aspart) Patient History Medical History (Updated 11/19/21 @ 11:21 by Deonna Orellana MD, PhD) At high risk for hyperkalemia frequent hyperkalemia; 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 Grandmother No problems noted. Mother Depression Anxiety Grandfather (Maternal) Heart disease Hypertension Myocardial infarction Grandmother (Maternal) Hypertension Grandfather (Paternal) Kidney disease Denies family history of Ovarian cancer Prostate cancer Lung cancer Colorectal cancer Social History Smoking Status: Current every day smoker Tobacco Type: Cigarettes Age Started Using Tobacco: 15; packs per day: 0.50; Cigarettes Per Day: 1 pack every 2- 2.5 days; Second Hand Exposure: No; Do You Dip or Chew Tobacco: No; Tobacco Cessation Education Requested by Patient: No Hx Alcohol Use: No Hx Substance Use: No Preferred Language: Scottish Communication Ability: Effective Manufacturing Helper Required: No Beliefs That Will Affect Care: None marital status: Single Current Living Situation: Other Current Living Situation Comment: girlfriend Other Information That Helps Us Care for You: No Feels Safe at Home: Yes Safety Concerns: Feels Safe At This Time Childhood Exposure to Second-Hand Smoke: Yes Seatbelt Use: never Sunscreen Use: No Assistive Devices: None Review of Systems Constitutional: + fever and + chills Musculoskeletal: Left lower extremity pain; mostly in L groin radiating to the back Physical Exam Physical Exam: awake/alert, expressing irritation with care Respiratory: no respiratory distress Musculoskeletal: -Tender mass in anterior L mid thigh with associated mild ecchymosis. -erythema overlying LUE fistula Results & Data ([facility]) Vital Signs (Past 12 Hours) Vital Signs Temp Pulse Resp BP Pulse Ox 11/19/21 07:04 37.1 C 93 H 16 151/101 H 95 11/19/21 04:16 37.4 C 80 16 147/89 H 99 11/18/21 23:10 37.2 C 94 H 16 144/91 H 96 11/18/21 21:05 37.4 C Diagnostic Findings [facility], [place] [phone] CT Scan Report Patient:MANOJ CORTEZ Admit Date:11/18/21 MR#:[id number] Address[address] Acct ID:[id number] Address2:[address] Date:1995 [facility] Zip:[place] [address] Age:26 Location:2E Sex:M Room[facility]Bed[facility] Att Phy:Morro Frias MD Diagnosis:SEPSIS, SUSPECT L FISTULA CELLULITIS Chante Phy:PCP,NO Service Date:11/18/21 Fam Phy: Interpreting Phy:Sidney Gonsalesflorenciojose MDAdmit Phy:Morro Frias MD Ordering Phy:Morro Frias MD cc: ~ LEFT FEMUR CT CT DOSE: 291.96 mGy.cm HISTORY: prox medial thigh acute worsening pain TECHNIQUE: Multiaxial CT images of the left femur were performed and reformatted in the sagittal and coronal plane without the use of contrast. A dose lowering technique was utilized adhering to the principles of ALARA. COMPARISON: Abdomen and pelvis CT 11/18/2021. FINDINGS: No fracture or dislocation within the left femur. Mild subcutaneous trace edema within the left thigh. Small left knee effusion. Focal superficial fatty density within the anterior mid left thigh measuring 8.3 x 5.2 x 2.3 cm. This contains a small amount of soft tissue density. This could represent a lipoma or possibly a developing liposarcoma given the small amount of internal soft density. Mild vascular calcifications are noted. Small cortical desmoid within the lateral femoral condyle. This is considered to be benign. IMPRESSION: 1. No fracture or dislocation within the left femur. 2. Mild subcutaneous edema within the left lower extremity. 3. Small left knee effusion. 4. Focal superficial fatty density within the anterior mid left thigh measuring 8.3 x 5.2 x 2.3 cm. This contains a small amount of soft tissue density. This could represent a lipoma or possibly a developing liposarcoma given the small amount of internal soft density. Surgical consultation recommended. ACT 112: Positive. There are findings on this exam that require communication between the performing entity and the patient following Patient Test Result Information Act ([place] Act 112) guidelines. PG Care Time/CCT Total # of Minutes Spent Total Time Spent with Patient: Total time spent is greater than 50% in coordination of care (as documented) at patient's floor/unit and/or counseling patient: Coding Level of Care Code 94249 Initial Inpt Care Lvl 1 Diagnoses Mass of left thigh R22.42 Acute leg pain M79.605 Laterality: left (1) Acute leg pain Laterality: left Qualified Code(s): M79.605 - Pain in left leg
[2021-11-19] MEDS ORDERED: INSULIN ASPART PER UNIT SC SCH ×2 (09:05→12:00)
[2021-11-19] MEDS ORDERED: HYDROmorphone INJ 0.5 MG/0.5 ML SYR IV ONE (09:06)
[2021-11-19] MEDS: INSULIN ASPART PER UNIT SC SCH ×4 (10:19→20:36)
--- NOTE | 2021-11-19 10:22 | Pharmacy Report ---
Pharmacy Vanc [facility] Short Note - Date of Service November 19, 2021 - Assessment & Plan Assessment 26 year old M receiving ceftriaxone and vancomycin for treatment of cellulitis and bacteremia likely secondary to infected fistula site. Blood cultures (+) Gram positive cocci in clusters. MRSA blood PCR (-), S. aureus PCR (+). * ESRD on iHD Day # 2 of antimicrobial therapy. Plan Vancomycin * Due to ESRD on iHD, plan to dose by levels after HD sessions (if possible) * Random level ~midnight last night- 12.2mcg/mL, therapeutic and safe to re-dose * Vanc 500mg IV X 1 this AM * Random level /15 w/ AM labs Pharmacy will continue to follow and will adjust dose/frequency as necessary. Thank you.
--- NOTE | 2021-11-19 10:55 | Nephrology Consultation ---
Date of Consultation November 19, 2021 Assessment & Plan (1) Dialysis AV fistula infection: for excision of AVF today (2) Bacteremia: GPC clusters; adjacent to AVF likely source -f/u [facility] cultures from 11/18 -f/u pending cxs here 11/18 -had 1 gm vanco yesterday; for 500 mg vanco today; also w/ zosyn one dose -repeat cxs tomorrow >>>f/u vascular surgery recs; will need at least 2 days negative cxs for TDC placement if that is needed (3) CKD (chronic kidney disease) stage V requiring chronic dialysis: ESRD on MWF HD w/ frequent hyperkalemia, though K today acceptable. -no HD today but will need it tomorrow >> will need temporary line for dialysis -ensure renal diet when taking po -daily bmp, CBC (4) Mass of left thigh: painful and limiting ambulation. -f/u surgical recs; liposarcoma on differential; at higher malignancy risk given txplt hx; PT eval History of Present Illness Reason for Consultation: ESRD Requesting Physician: Dr Frias Attending Physician: Morro Frias MD History of Present Illness 26-year-old male whom I'm asked to see for dialysis needs was admitted yesterday w/ concern for sepsis after presenting for evaluation of warmth, redness adjacent to his L upper arm AVF. Blood cultures from 1300 yesterday are 2/2 positive for GPC clusters. 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 He had also been seen in [facility] ER 11/17 to evaluate L AVF pain > he had K 6.7; no mention in records of L leg pain; he ultimately left AMA. No blood cultures were drawn. He dialyzes MWF at [facility] via AVF. I was communications department head early Tue AM and contacted by dialysis nurse w/ concern for 1) redness/warmth/pain/new puffiness adjacent to AVF and 2) that pt had so much L leg pain that he came to tx in a w/c. Blood cultures were drawn which are still pending; he received a gram of vancomycin at the end of tx. we ran him in clinic w/ cannulation well away from irritated area and plan to stop tx and send to ER if clinically worsening. He ran his full tx and was afebrile though w/ relatively lower blood pressures (140-150s systolic). He already had an OP fistulagram scheduled for today at [facility]. I advised f/u w/ pcp regarding leg pain. Pt presented here w/ reports of F and chills, worse after dialysis. he tells me he hurts all over/ generalized aches and worse over L upper arm, AVF. denies sob, n/v; some mild edema+. he has had poor po d/t pain. he is anuric.no palpitations/chest pressure. AVF, leg pain present for about a few days. He had a dose of zosyn in ER. he has imaging in process of AVF which has hx of prior stents. T max today 37.8. vascular saw pt, worried for AVF infection w/ risk of imminent rupture, for excision today Imaging of LLE w/ lipomatous mass> lipoma though liposarcoma on ddx. Allergies Allergy/AdvReac Type Severity Reaction Status Date / Time baclofen Allergy Unknown HIVES Verified 04/16/20 10:59 Iodinated Contrast Media Allergy Unknown RASH Verified 04/16/20 10:59 Sulfa (Sulfonamide Allergy Unknown RASH Verified 04/16/20 10:59 Antibiotics) Home Medications Medication Instructions Recorded Confirmed Type amlodipine 10 mg tablet 10 mg PO DAILY #90 tab 09/13/19 04/16/20 Rx blood sugar diagnostic (OneTouch #300 ea 09/13/19 04/16/20 Rx Ultra Blue Test Strip) calcium acetate(phosphat bind) 667 667 mg PO TID #270 cap 09/13/19 04/16/20 Rx mg capsule carvedilol 25 mg tablet 50 mg PO BID #360 tab 09/13/19 04/16/20 Rx cholecalciferol (vitamin D3) 1,250 1,250 mcg PO WEEKLY #12 cap 09/13/19 04/16/20 Rx mcg (50,000 unit) capsule cinacalcet 30 mg tablet (Sensipar) 30 mg PO DAILY #90 tab 09/13/19 04/16/20 Rx lancets 28 gauge (FreeStyle #300 ea 09/13/19 04/16/20 Rx Lancets) omeprazole 40 mg capsule,delayed 40 mg PO DAILY PRN cap 09/28/19 04/16/20 H istory release hydralazine 100 mg tablet 100 mg PO BID #180 tab 12/24/19 04/16/20 Rx clonidine 0.3 mg/24 hr weekly 1 patch TOPICAL .weekly #4 ea 11/04/20 11/04/20 Rx transdermal patch insulin aspart U-100 100 unit/mL See Rx Instructions SQ .COMPLEX 05/27/21 Rx (3 mL) subcutaneous pen (Novolog #15 ml Flexpen U-100 Insulin aspart) Patient History Medical History At high risk for hyperkalemia frequent hyperkalemia; 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 Grandmother No problems noted. Mother Depression Anxiety Grandfather (Maternal) Heart disease Hypertension Myocardial infarction Grandmother (Maternal) Hypertension Grandfather (Paternal) Kidney disease Denies family history of Ovarian cancer Prostate cancer Lung cancer Colorectal cancer Social History Smoking Status: Current every day smoker Tobacco Type: Cigarettes Age Started Using Tobacco: 15; packs per day: 0.50; Cigarettes Per Day: 1 pack every 2- 2.5 days; Second Hand Exposure: No; Do You Dip or Chew Tobacco: No; Tobacco Cessation Education Requested by Patient: No Hx Alcohol Use: No Hx Substance Use: No Preferred Language: Kazakh Communication Ability: Effective 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 Required: No Beliefs That Will Affect Care: None marital status: Single Current Living Situation: Other Current Living Situation Comment: girlfriend Other Information That Helps Us Care for You: No Feels Safe at Home: Yes Safety Concerns: Feels Safe At This Time Childhood Exposure to Second-Hand Smoke: Yes Seatbelt Use: never Sunscreen Use: No Assistive Devices: None Review of Systems Review of Systems: All systems reviewed & are unremarkable except as noted in HPI & below Physical Exam Constitutional: well developed, well nourished, + acute distress (mild distress from pain), + ill appearing and cooperative; + uncomfortable Eyes: EOM intact bilaterally ENMT: Ears: no external ear abnormality Nose: no external nose abnormality Mouth: + dry oral mucous membranes Neck: no nuchal rigidity Respiratory: normal respiratory effort Auscultation: + diminished lung sounds and + crackles (bibasilar) Cardiovascular: Rate/Rhythm: regular rate and regular rhythm Extremities: + AV fistula (w/ 3 x 3 cm red especially tender area, shiny w/ black macule); no edema Gastrointestinal (Abdomen): Inspection/Auscultation: normal bowel sounds Percussion/Palpation: abdomen soft; abdomen nontender Musculoskeletal: Extremities: strength 5/5 throughout Skin: no rashes, warm and dry Neurologic: barraza, fluent speech, no tremor Psychiatric: Orientation: alert and oriented x 3 Insight: good insight Judgement: good judgement Results & Data ([facility]) Vital Signs (Past 12 Hours) Vital Signs Temp Pulse Pulse Resp BP Pulse Ox 11/19/21 07:06 90 11/19/21 07:04 37.1 C 93 H 16 151/101 H 95 11/19/21 04:16 37.4 C 80 16 147/89 H 99 11/18/21 23:10 37.2 C 94 H 16 144/91 H 96 Laboratory Results 11/18/21 11:45 11/18/21 23:[address] a/p Lung base: There is atelectasis at the left lung base. Lung bases are otherwise clear. Abdominal cavity: There is no evidence for abdominal mass, adenopathy or ascites. Liver: The liver is homogeneous in attenuation on these limited noncontrast images..There is mild hepatomegaly. Spleen: The spleen is homogeneous in attenuation on these limited noncontrast images. There is mild splenomegaly. Pancreas: The pancreas is homogeneous in attenuation on these limited noncontrast images. Gall Bladder: The gallbladder is contracted due to the patient's nonfasting state. Adrenal glands: The adrenal glands are normal in size and attenuation on these limited noncontrast images. Kidneys: There is again absence of the right kidney and marked atrophy of the left kidney. There is again evidence for a failed left renal transplant with increased dystrophic calcification within the left lower quadrant. There is again evidence for dilatation of the distal left ureter. Bowel: The bowel loops are normally placed within the abdomen and pelvis without evidence for dilatation or obstruction. There is no evidence for mass lesion. There are no inflammatory changes present. There is no evidence for free air. There is evidence for a normal appendix in the right lower quadrant. Bladder: There is no evidence for focal bladder wall thickening, calculus or diverticulum. : There is no evidence for pelvic mass or adenopathy. Vasculature: There is no evidence for focal aneurysmal dilatation of the abdominal aorta. Osseous structures: There is no acute osseous pathology. IMPRESSION: 1. Compared to the previous study, there is evidence for increase dystrophic calcification of what appears to be a rejected left renal transplant. 2. Otherwise, no acute intra-abdominal or pelvic abnormality on these limited noncontrast images. 3. There is again absence of the right kidney and marked atrophy of the left kidney. 4. There is again dilatation of the distal left ureter. L femur CT FINDINGS: No fracture or dislocation within the left femur. Mild subcutaneous trace edema within the left thigh. Small left knee effusion. Focal superficial fatty density within the anterior mid left thigh measuring 8.3 x 5.2 x 2.3 cm. This contains a small amount of soft tissue density. This could represent a lipoma or possibly a developing liposarcoma given the small amount of internal soft density. Mild vascular calcifications are noted. Small cortical desmoid within the lateral femoral condyle. This is considered to be benign. IMPRESSION: 1. No fracture or dislocation within the left femur. 2. Mild subcutaneous edema within the left lower extremity. 3. Small left knee effusion. 4. Focal superficial fatty density within the anterior mid left thigh measuring 8.3 x 5.2 x 2.3 cm. This contains a small amount of soft tissue density. This could represent a lipoma or possibly a developing liposarcoma given the small amount of internal soft density. Surgical consultation recommended.
--- NOTE | 2021-11-19 12:14 | Ultrasound Report ---
ULTRASOUND LEFT UPPER EXTREMITY ARTERIAL CLINICAL HISTORY: Left arm pain. Fistula. COMPARISON STUDY: No priors. FINDINGS: Real-time grayscale and color Doppler sonography of the left upper extremity arteries is pe rformed to assess the patient's fistula. The fistula is patent and measures up to 1.4 cm in diameter. This is likely between the cephalic vein and the brachial artery. Mild thickening and calcification of the fistula wall is likely chronic. Velocities within the fistula measure up to 237 cm/s in the mi dportion and up to 427 cm/s distally. There is a small complex nonvascular fluid collection seen kathryn g the inferior aspect of the fistula measuring 3.2 x 2.1 x 2.5 cm. This likely represents a small hem atoma. IMPRESSION: 1. A left upper extremity dialysis fistula is patent as above. 2. A 3.2 cm complex nonvascular fluid collection along the distal aspect of the fistula is typical ap pearance for a hematoma. Clinical correlation will be required. Dictated: 11/19/2021 11:15 AM Transcribed: 11/19/2021 11:41 AM Rhina [id number] [facility] Electronically signed by: Kyle Marlow M.D. 11/19/2021 12:13 PM
[2021-11-19] MEDS ORDERED: HYDROmorphone INJ 0.5 MG/0.5 ML SYR IV PRN (12:21)
--- NOTE | 2021-11-19 13:22 | Pharmacy Report ---
Pharmacy Glycemic Short Note 2 - Date of Service November 19, 2021 - Glycemic Short BSG Results (Last 24 hours): 11/18/21 11/18/21 11/18/21 13:35 14:59 16:18 Glucose POC Glucose 416 H* 367 H* 308 H* 11/18/21 11/18/21 11/18/21 16:59 18:02 19:03 Glucose POC Glucose 296 H 221 H 164 H 11/18/21 11/18/21 11/18/21 19:53 20:54 21:54 Glucose POC Glucose 148 H 174 H 135 H 11/18/21 11/18/21 11/18/21 23:06 23:45 23:59 Glucose 91 POC Glucose 81 87 11/19/21 11/19/21 11/19/21 01:09 02:05 03:07 Glucose POC Glucose 127 H 141 H 100 H 11/19/21 11/19/21 11/19/21 04:10 05:10 06:16 Glucose POC Glucose 126 H 135 H 113 H 11/19/21 11/19/21 07:08 11:36 Glucose POC Glucose 127 H 254 H OUTPATIENT ANTIDIABETIC REGIMEN: * Clarifying basal regimen * Per Dr. Frias - patient's family reported he was not on basal but thinks he is type 1 and patient reported the same. Dr. Frias called [facility] who had same info. PCP office is closed at this time. Dr. Frias to continue to inquire and will follow up. * Novolog * Correction factor: 50 mg/dL/unit, starting above 200 mg/dL * Carb ratio: 15 g CHO/unit * HbA1c outdated, but not repeated given ESRD * HbA1c somewhat unreliable in ESRD patients d/t interactions between the A1c analyzing technique and high levels of urea in ESRD, reduced RBC life span, iron deficiency anemia, and EPO administration. HbA1c > 7.5% in ESRD patient may overestimate the extent of hyperglycemia in ESRD patients. ASSESSMENT: 11/19: * BSGs well controlled with insulin infusion. Infusion running at low rates, 0.5unit/hr this AM, and was quite consistent at that rate. Patient is not adhering to diet orders and bringing in outside food/drink which is interfering with management (hospitalist aware). Patient with (+) blood cultures, and receiving iHD which will additionally impact glycemic management. * D/w hospitalist this AM -- plan to convert to SQ. Dr. Frias confirmed patient is not on basal insulin @ home as he hasn't tolerated in past due to low BSGs. However, would like to initiate while admitted given DM1. * Insulin gtt turned off this AM. Lantus 3 units SQ X 1 as drip shut off. Very conservative basal titration -- starting at ~ 0.2unit/kg/day divided. Will plan for an HS scale tonight. * Novolog parameters to start based upon home regimen. CF/CR 50/15 (correction for BSG >200mg/dL). 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 Will hopefully be able to attempt transition tomorrow AM after further clarification regarding outpatient regimen. PLAN FOR INPATIENT GLYCEMIC CONTROL: * Lantus 3 units SQ X 1 + HS scale * Bolus insulin * Novolog ACHS; correction factor -50mg/dL/unit (for BSG >200mg/dL), carb ratio 15 g/unit
--- NOTE | 2021-11-19 14:07 | Consultation ---
Date of Consultation November 19, 2021 Assessment & Plan (1) Dialysis AV fistula infection: Recommend removal of fistula and any infected vein. The proximal portion of the fistula has an area of clot occluding a 3 to 4 mm area of the fistula. The graft appears infected on exam. It does contain several stents which also may be infected. The appearance of the proximal portion of the fistula is consistent with an area of imminent rupture. Would recommend we do this as an emergency to avoid rupture of the fistula and bleeding. I have discussed the risks options and benefits of the procedure with the patient. The patient understands the risks options and benefits and agrees to the procedure. History of Present Illness Reason for Consultation: Infected left arm access Attending Physician: Morro Frias MD History of Present Illness This is a 26 yo dialysis patient who has been using a left arm fistula for di alysis for about 10+ years. He claims it is a venous fistula but does have numerous stents in place. He developed increase swelling and pain and redness of the proximal fistula over the last few days. The tenderness has now extended up the arm along the vein. He was admitted with positive blood cultures. He is a known diabetic with a failed kidney transplant. He is a current smoker. Allergies Allergy/AdvReac Type Severity Reaction Status Date / Time baclofen Allergy Unknown HIVES Verified 04/16/20 10:59 Iodinated Contrast Media Allergy Unknown RASH Verified 04/16/20 10:59 Sulfa (Sulfonamide Allergy Unknown RASH Verified 04/16/20 10:59 Antibiotics) Home Medications Medication Instructions Recorded Confirmed Type amlodipine 10 mg tablet 10 mg PO DAILY #90 tab 09/13/19 04/16/20 Rx blood sugar diagnostic (OneTouch #300 ea 09/13/19 04/16/20 Rx Ultra Blue Test Strip) calcium acetate(phosphat bind) 667 667 mg PO TID #270 cap 09/13/19 04/16/20 Rx mg capsule carvedilol 25 mg tablet 50 mg PO BID #360 tab 09/13/19 04/16/20 Rx cholecalciferol (vitamin D3) 1,250 1,250 mcg PO WEEKLY #12 cap 09/13/19 04/16/20 Rx mcg (50,000 unit) capsule cinacalcet 30 mg tablet (Sensipar) 30 mg PO DAILY #90 tab 09/13/19 04/16/20 Rx lancets 28 gauge (FreeStyle #300 ea 09/13/19 04/16/20 Rx Lancets) omeprazole 40 mg capsule,delayed 40 mg PO DAILY PRN cap 09/28/19 04/16/20 History release hydralazine 100 mg tablet 100 mg PO BID #180 tab 12/24/19 04/16/20 Rx clonidine 0.3 mg/24 hr weekly 1 patch TOPICAL .weekly #4 ea 11/04/20 11/04/20 Rx transdermal patch insulin aspart U-100 100 unit/mL See Rx Instructions SQ .COMPLEX 05/27/21 Rx (3 mL) subcutaneous pen (Novolog #15 ml Flexpen U-100 Insulin aspart) Patient History Medical History At high risk for hyperkalemia frequent hyperkalemia; 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 Grandmother No problems noted. Mother Depression Anxiety Grandfather (Maternal) Heart disease Hypertension Myocardial infarction Grandmother (Maternal) Hypertension Grandfather (Paternal) Kidney disease Denies family history of Ovarian cancer Prostate cancer Lung cancer Colorectal cancer Social History Smoking Status: Current every day smoker Tobacco Type: Cigarettes Age Started Using Tobacco: 15; packs per day: 0.50; Cigarettes Per Day: 1 pack every 2- 2.5 days; Second Hand Exposure: No; Do You Dip or Chew Tobacco: No; Tobacco Cessation Education Requested by Patient: No Hx Alcohol Use: No Hx Substance Use: No Preferred Language: Hungarian Communication Ability: Effective Pool Player Required: No Beliefs That Will Affect Care: None marital status: Single Current Living Situation: Other Current Living Situation Comment: girlfriend Other Information That Helps Us Care for You: No Feels Safe at Home: Yes Safety Concerns: Feels Safe At This Time Childhood Exposure to Second-Hand Smoke: Yes Seatbelt Use: never Sunscreen Use: No Assistive Devices: None Review of Systems Review of Systems: All systems reviewed & are unremarkable except as noted in HPI & below Physical Exam Constitutional: well developed, well nourished and + in distress (moderate from pain in left arm) Respiratory: normal respiratory effort, lungs clear to auscultation Cardiovascular: RRR, no murmur, no edema Extremities: + AV fistula (erythematous with proximal swelling. ) 4mm punctate area of clot in the proximal fistula. Tenderness along the vein up to the anterior axillary line. Gastrointestinal (Abdomen): normal bowel sounds, soft, nontender, no hepatosplenomegaly Musculoskeletal: no cyanosis or clubbing, extremities motor strength 5/5 Neurologic: CN's II-XI intact bilaterally and moves all extremities Psychiatric: Orientation: alert and oriented x 3 Results & Data ([facility]) Vital Signs (Past 12 Hours) Vital Signs Temp Pulse Pulse Resp BP Pulse Ox 11/19/21 12:12 36.6 C 77 18 168/94 H 94 11/19/21 07:06 90 11/19/21 07:04 37.1 C 93 H 16 151/101 H 95 11/19/21 04:16 37.4 C 80 16 147/89 H 99
[2021-11-19] MEDS ORDERED: HEPARIN (PORCINE) 1000 UNIT/ML 10 ML (CATH LAB USE ONLY) ONE (14:09)
[2021-11-19] MEDS ORDERED: LIDOCAINE 1% LOCAL 20 ML VIAL ONE (14:09)
[2021-11-19] MEDS ORDERED: THROMBIN FOR SOLN 20000 UNIT KIT ONE (14:10)
[2021-11-19] MEDS ORDERED: BUPIVACAINE 0.5 % 5 MG/1 ML MPF 30ML VIAL ONE (14:10)
[2021-11-19] MEDS ORDERED: EPINEPHrine INJ 1 MG/ML AMP ONE (14:10)
[2021-11-19] MEDS ORDERED: GELATIN SPONGE SZ 100 EXT ONE (14:19)
[2021-11-19] MEDS ORDERED: fentaNYL citrate 100 MCG/2 ML VIAL ONE ×3 (14:22→15:36)
[2021-11-19] MEDS ORDERED: INSULIN ASPART PER UNIT SC STA (14:36)
[2021-11-19] MEDS ORDERED: ONDANSETRON INJ 2 MG/ML 2 ML VIAL IV PRN (14:45)
[2021-11-19] MEDS ORDERED: ePHEDrine sulfate 50 MG/ML AMP IV PRN (14:45)
[2021-11-19] MEDS ORDERED: ATROPINE SULFATE 0.1 MG/ML 10ML SYR IV PRN (14:45)
--- NOTE | 2021-11-19 14:45 | Anesthesiology Consultation ---
Date of Service November 19, 2021 Assessment & Plan Chart Review Chart Review: Acceptable Risk for Surgery and Patient NOT seen in Pre Admission Testing Consults Requested none ASA ASA4E Proposed Anesthesia Anesthesia Type: General Risk / Benefits Reviewed With: PT / POA / Parent / Guardian, Accepts Plan and Informed Consent Obtained History Surgery Operation Date: 11/19/21 09:40 Proposed Procedures p Left Upper Extremity Arteriovenous Fistula Revision - Jeronimo Blanco MD Operation Date: 11/20/21 12:00 Proposed Procedures p Left Upper Extremity Arteriovenous Fistula Revision - Jeronimo Blanco MD Height/Weight Height: 5 ft 2 in Weight: 59.6 kg Allergies Allergy/AdvReac Type Severity Reaction Status Date / Time baclofen Allergy Unknown HIVES Verified 04/16/20 10:59 Iodinated Contrast Media Allergy Unknown RASH Verified 04/16/20 10:59 Sulfa (Sulfonamide Allergy Unknown RASH Verified 04/16/20 10:59 Antibiotics) Medications Home Medications Medication Instructions Recorded Confirmed Last Taken amlodipine 10 mg tablet 10 mg PO DAILY #90 tab 09/13/19 04/16/20 Unknown blood sugar diagnostic (OneTouch #300 ea 09/13/19 04/16/20 Unknown Ultra Blue Test Strip) calcium acetate(phosphat bind) 667 667 mg PO TID #270 cap 09/13/19 04/16/20 Unknown mg capsule carvedilol 25 mg tablet 50 mg PO BID #360 tab 09/13/19 04/16/20 Unknown cholecalciferol (vitamin D3) 1,250 1,250 mcg PO WEEKLY #12 cap 09/13/19 04/16/20 Unknown mcg (50,000 unit) capsule cinacalcet 30 mg tablet (Sensipar) 30 mg PO DAILY #90 tab 09/13/19 04/16/20 Unknown lancets 28 gauge (FreeStyle #300 ea 09/13/19 04/16/20 Unknown Lancets) omeprazole 40 mg capsule,delayed 40 mg PO DAILY PRN cap 09/28/19 04/16/20 Unknown release hydralazine 100 mg tablet 100 mg PO BID #180 tab 12/24/19 04/16/20 Unknown clonidine 0.3 mg/24 hr weekly 1 patch TOPICAL .weekly #4 ea 11/04/20 11/04/20 Unknown transdermal patch insulin aspart U-100 100 unit/mL See Rx Instructions SQ .COMPLEX 05/27/21 Unknown (3 mL) subcutaneous pen (Novolog #15 ml Flexpen U-100 Insulin aspart) Active Medications Generic Name Dose Route Start Last Admin Trade Name Karoline PRN Reason Stop Dose Admin Acetaminophen 650 mg 11/18/21 16:38 11/18/21 23:32 Acetaminophen 325 Mg Tab PO 12/18/21 16:37 650 mg Q4H PRN Administration Pain or Fever Dextrose 25 - 50 ml 11/18/21 17:15 11/18/21 23:22 Dextrose 50% 50 Ml Syringe IV 12/18/21 17:14 25 ml UD PRN Administration Hypoglycemia Protocol Protocol Ceftriaxone Sodium 2,000 mg/ 70 mls @ 140 mls/hr 11/19/21 08:00 11/19/21 09:18 Dextrose IV 11/26/21 07:59 Infused DAILY@0800 NICOLETTE Infusion Insulin Aspart 0 units 11/19/21 09:05 11/19/21 12:55 Insulin Aspart Per Unit SC 12/19/21 09:04 3 units ACHS NICOLETTE Administration Losartan Potassium 100 mg 11/19/21 09:00 11/19/21 09:25 Losartan Potassium 50 Mg Tab PO 12/19/21 08:59 100 mg QAM NICOLETTE Administration Metoprolol Tartrate 50 mg 11/18/21 16:38 11/19/21 09:25 Metoprolol Tartrate 50 Mg Tab PO 12/18/21 16:37 50 mg QAM NICOLETTE Administration Pantoprazole Sodium 40 mg 11/19/21 09:00 11/19/21 09:25 Pantoprazole 40 Mg Tab PO 12/19/21 08:59 40 mg DAILY NICOLETTE Administration Sevelamer HCl 800 mg 11/18/21 17:00 11/19/21 12:55 Sevelamer Hcl 800 Mg Tablet PO 12/18/21 16:59 800 mg TIDM NICOLETTE Administration NPO Date Last Intake of Fluids: 11/19/21 Time Last Intake of Fluids: 12:30 Date Last Intake of Solids: 11/19/21 Time Last Intake of Solids: 12:30 Last Intake of Solids Comment: Dr. Blanco and Dr. 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 Grandmother No problems noted. Mother Depression Anxiety Grandfather (Maternal) Heart disease Hypertension Myocardial infarction Grandmother (Maternal) Hypertension Grandfather (Paternal) Kidney disease Denies family history of Ovarian cancer Prostate cancer Lung cancer Colorectal cancer Past Surgical History Surgical History History of circumcision History of laparoscopy History of nephrectomy S/P kidney transplant "x2, most recently in 2012" Status post biopsy of kidney Past Anesthesia History No Hx of Anesthesia Complications and No Family Hx of Anesthesia Complications History of PONV No Hx of PONV and No Hx of Motion Sickness Social History Smoking Status: Current every day smoker tobacco type: cigarettes Smoking cigarettes per day: 1 pack every 2- 2.5 days Do You Dip or Chew Tobacco: No Hx Alcohol Use: No Hx Substance Use: No substance use type: does not use Physical Exam Vital Signs Last Vital Signs Temp 37.7 C H 11/19/21 14:24 Pulse 82 11/19/21 14:24 Resp 20 11/19/21 14:24 BP 161/102 H 11/19/21 14:24 Pulse Ox 98 11/19/21 14:24 ENMT Mouth: no dentition abnormality Thyromental Distance: > or= 3.5 Finger Breadths Mallampati Class: II Neck normal visual inspection and + facial hair (short arellano) Respiratory normal respiratory effort Auscultation: lungs clear to auscultation bilaterally Cardiovascular Rate/Rhythm: regular rate and regular rhythm Musculoskeletal left upper extremity fistula Psychiatric Orientation: alert Testing Laboratory Results 11/18/21 11:45 11/18/21 23:45 PT 13.6 Seconds (9.0-12.0) H 11/18/21 11:45 INR 1.3 (0.9-1.1) H 11/18/21 11:45 APTT 44.7 Seconds (21.0-31.0) H 11/18/21 11:45 11/18/21 11:45 Aerobic Blood Culture - Preliminary Blood Gram positive cocci clusters Anaerobic Blood Culture - Preliminary No growth in Anaerobic bottle after 24 hours. 11/18/21 11:56 Aerobic Blood Culture - Preliminary Blood Gram positive cocci clusters Anaerobic Blood Culture - Preliminary No growth in Anaerobic bottle after 24 hours. 11/19/21 11/19/21 11/19/21 14:31 11:36 07:08 POC Glucose 487 H* 254 H 127 H 11/19/21 11/19/21 11/19/21 06:16 05:10 04:10 POC Glucose 113 H 135 H 126 H 11/19/21 03:07 POC Glucose 100 H
[2021-11-19] MEDS ORDERED: ONDANSETRON INJ 2 MG/ML 2 ML VIAL ONE (15:36)
[2021-11-19] MEDS ORDERED: LIDOCAINE 2% 2 ML VIAL/AMP(20MG/ML) INFIL ONE (15:36)
[2021-11-19] MEDS ORDERED: SUCCINYLCHOLINE CHLORIDE 20 MG/ML 10 ML VIAL IV ONE (15:36)
[2021-11-19] MEDS ORDERED: PROPOFOL IV EMULSION 10 MG/ML 20 ML VIAL IV ONE (15:36)
[2021-11-19] MEDS ORDERED: SURGICEL ABSORB HEMOSTAT 2IN X 14IN TOP ONE (15:38)
[2021-11-19] MEDS ORDERED: KETAMINE 50 MG/5 ML SYRINGE ONE (15:48)
[2021-11-19] MEDS ORDERED: ceFAZolin 330 MG/ML 1 GM VIAL ONE (16:05)
--- NOTE | 2021-11-19 16:18 | Post Operative Brief Note ---
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 Operation Date: 11/20/21 12:00 <No data on this case meets the specified criteria> I identified the patient and participated in the time-out.: Yes Procedure Operation Date: 11/19/21 09:40 Actual Procedures p Left Upper Extremity Arteriovenous Fistula Removal, (Left) - Jeronimo Blanco MD Operation Date: 11/20/21 12:00 <No data on this case meets the specified criteria> Surgeon Jeronimo Blanco MD Remote Sensing Research Scientist MD [place] Estimated Blood Loss 75 Findings Consistent with Post-Op Diagnosis Anesthesia Type General Complications none Disposition Accompanied Patient To Recovery: No Disposition: Recovery Room
--- NOTE | 2021-11-19 17:01 | Operative Report ---
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 Operation Date: 11/20/21 12:00 <No data on this case meets the specified criteria> Operation Date: 11/20/21 15:15 <No data on this case meets the specified criteria> I identified the patient and participated in the time-out.: Yes Procedure Operation Date: 11/19/21 09:40 Actual Procedures p Left Upper Extremity Arteriovenous Fistula Removal.(Left) - Jeronimo Blanco MD Operation Date: 11/20/21 12:00 <No data on this case meets the specified criteria> Operation Date: 11/20/21 15:15 <No data on this case meets the specified criteria> Surgeon Jeronimo Blanco MD Warehouse Man MD [place] Estimated Blood Loss 75 Findings Consistent with Post-Op Diagnosis Specimens left arm arteriovenous fistula Drains none Anesthesia Type General Complications none immediate Disposition Accompanied Patient To Recovery: No Disposition: Surgical ICU Indications This is a 26 year old male with end stage renal disease on hemodialysis. He has a left arm brachiocephalic arteriovenous fistula which has been present for 10+ years. He presented to the emergency department yesterday with increased swelling and pain and redness of the proximal fistula over the last few days. The tenderness has now extended up the arm along the vein. He was admitted with positive blood cultures. The graft appears infected on exam. It does contain several stents which also may be infected. We recommend removal of fistula and any infected vein. He presents for this procedure. Description of Procedure The patient was taken to the operating room. He was transferred over to the operating room table and placed in the supine position with the left arm abducted and placed on an arm board. The left arm was circumferentially prepped and draped. A team timeout was performed. A longitudinal incision along the course of the fistula was made. This incision was about 20cm in length. The incision was deepened through the skin and subcutaneous tissues. The fistula was dissected out in its distal most aspect, a few centimeters from the arteriovenous anastomosis. Then, we dissected out the outflow vein in the proximal arm. Both of these segments were clamped with vascular clamps. We then carried the dissection down along the vein, towards the area of venous aneurysm and the area of concern for infection. Significant inflammation was encountered. As we approached the area of the presumed impending rupture, we excised an additional elipse of skin. This remained attached to the fistula. We dissected the entire segment of the vein out in between our two clamps circumferentially. Proximally and distally the vein was ligated with a 3-0 vicryl stick tie. Bleeding from the surrounding inflamed tissue was controlled with surgicel, thrombin spray, and cautery. The wound was copiously irrigated with ancef saline solution. The deep tissues were closed with several interrupted 2-0 vicryl sutures. The dermis was approximated with several interrupted 3-0 vicryl sutures. The skin was closed with 3-0 nylon sutures in a vertical mattress fashion. The wound was dressed with xeroform gauze over the suture line, 4x4 gauze over the incision, and the arm was wrapped with kerlix gauze and ELIEZER wrap. On the back table we opened the concerning segment of the vein. This did appear infected. There was an approximately 1cm hole in the aneurysmal segment of vein with attached clot. The skin in this area was quite thinned out. The specimen was sent for pathology. Cultures were also sent. The patient tolerated the procedure well and without immediate complication. At the conclusion of the case all needle, sponge, and instrument counts were correct. The patient was taken to the recovery room in satisfactory condition. Dr. Blanco was present and scrubbed for the procedure. I attest to the content of the Intraoperative Record and any orders documented therein. Any exceptions are noted below.
[2021-11-19] MEDS: fentaNYL citrate 100 MCG/2 ML VIAL IV PRN ×3 (17:32→17:51)
--- NOTE | 2021-11-19 17:39 | XCELERA ---
[id number]
--- NOTE | 2021-11-19 18:19 | Anesthesiology Progress Note ---
Date of Service November 19, 2021 Anesthesia Post Procedure Vital Signs Vital Signs: Temp Pulse Pulse Pulse Resp BP Pulse Ox 11/19/21 18:05 71 19 159/101 H 95 11/19/21 17:55 73 17 159/98 H 97 11/19/21 17:45 37.5 C 75 22 161/101 H 96 11/19/21 17:35 73 15 168/103 H 96 11/19/21 17:25 72 18 164/102 H 99 11/19/21 17:15 70 26 H 161/101 H 100 11/19/21 17:09 36.8 C 70 22 151/96 H 100 11/19/21 14:24 37.7 C H 82 20 161/102 H 98 11/19/21 12:12 36.6 C 77 18 168/94 H 94 11/19/21 07:06 90 11/19/21 07:04 37.1 C 93 H 16 151/101 H 95 11/19/21 04:16 37.4 C 80 16 147/89 H 99 11/18/21 23:10 37.2 C 94 H 16 144/91 H 96 11/18/21 21:05 37.4 C 11/18/21 19:58 37.8 C H 93 H 16 145/91 H 98 Pain Intensity Left Leg: Pain Intensity: 9 Left Arm: Pain Intensity: 3 Transfer of Care Handoff Completed per policy Notes Mental Status: alert / awake / arousable and participated in evaluation Patient Amnestic to Procedure: Yes Nausea / Vomiting: adequately controlled Pain: adequately controlled Airway Patency, RR, SpO2: stable & adequate BP & HR: stable & adequate Hydration State: stable & adequate Anesthetic Complications: no major complications apparent and Pt Satisfied with anesthetic care
[2021-11-19] MEDS ORDERED: oxyCODONE/ACETAMINOPHEN 5mg/325mg TAB PO PRN (18:28)
[2021-11-19] MEDS: HYDROmorphone INJ 1 MG/ML SYRINGE IV PRN ×2 (19:41→23:39)
[2021-11-19] MEDS ORDERED: INSULIN GLARGINE SOLOSTAR 100 UNITS/ML 3 ML PEN SC SCH (21:00)
[2021-11-19] MEDS ORDERED: METOPROLOL TARTRATE 25 MG TAB PO STA (21:50)
[2021-11-20] MEDS: INSULIN ASPART PER UNIT SC SCH ×6 (00:33→20:19)
[2021-11-20] MEDS: METOPROLOL TARTRATE 50 MG TAB PO SCH (07:41)
[2021-11-20] MEDS: LOSARTAN POTASSIUM 50 MG TAB PO SCH (07:41)
[2021-11-20] MEDS: HYDROmorphone INJ 1 MG/ML SYRINGE IV PRN ×4 (07:54→21:38)
[2021-11-20] MEDS: INSULIN DETEMIR FLEXPEN/FLEX TOUCH 100 UNITS/ML 3ML SC SCH (08:35)
[2021-11-20] MEDS: cefTRIAXone SODIUM 2,000 MG in DEXTROSE 5% 50 ML IV SCH (08:38)
--- NOTE | 2021-11-20 08:56 | History & Physical Bridge Note ---
Date of Service November 20, 2021 History & Physical Bridge Note Patient for insertion of temporary dialysis catheter today. I have discussed the risks options and benefits of the procedure with the patient. The patient understands the risks options and benefits and agrees to the procedure. I have examined the patient, reviewed the History & Physical and in the interval since the performance of the History & Physical I have noted the following changes of clinical significance: no changes noted
[2021-11-20] MEDS ORDERED: MIDAZOLAM HCL 1 MG/ML 2ML VIAL ONE ×2 (09:05→09:29)
[2021-11-20] MEDS ORDERED: fentaNYL citrate 100 MCG/2 ML VIAL ONE ×2 (09:05→09:29)
--- NOTE | 2021-11-20 09:17 | Anesthesiology Consultation ---
Date of Service November 20, 2021 Assessment & Plan (1) Encounter for pre-operative examination: Chart Review Chart Review: Acceptable Risk for Surgery and Patient NOT seen in Pre Admission Testing Consults Requested none History Surgery Operation Date: 11/19/21 09:40 Proposed Procedures p Left Upper Extremity Arteriovenous Fistula Revision - Jeronimo Blanco MD Operation Date: 11/20/21 12:00 Proposed Procedures p Left Upper Extremity Arteriovenous Fistula Revision - eJronimo Blanco MD Operation Date: 11/20/21 15:15 Proposed Procedures p Insertion Temporary Dialysis Catheter - Jeronimo Blanco MD Height/Weight Height: 5 ft 2 in Weight: 60.1 kg Allergies Allergy/AdvReac Type Severity Reaction Status Date / Time baclofen Allergy Unknown HIVES Verified 04/16/20 10:59 Iodinated Contrast Media Allergy Unknown RASH Verified 04/16/20 10:59 Sulfa (Sulfonamide Allergy Unknown RASH Verified 04/16/20 10:59 Antibiotics) Medications Home Medications Medication Instructions Recorded Confirmed Last Taken amlodipine 10 mg tablet 10 mg PO DAILY #90 tab 09/13/19 04/16/20 Unknown blood sugar diagnostic (OneTouch #300 ea 09/13/19 04/16/20 Unknown Ultra Blue Test Strip) calcium acetate(phosphat bind) 667 667 mg PO TID #270 cap 09/13/19 04/16/20 Unknown mg capsule carvedilol 25 mg tablet 50 mg PO BID #360 tab 09/13/19 04/16/20 Unknown cholecalciferol (vitamin D3) 1,250 1,250 mcg PO WEEKLY #12 cap 09/13/19 04/16/20 Unknown mcg (50,000 unit) capsule cinacalcet 30 mg tablet (Sensipar) 30 mg PO DAILY #90 tab 09/13/19 04/16/20 Unknown lancets 28 gauge (FreeStyle #300 ea 09/13/19 04/16/20 Unknown Lancets) omeprazole 40 mg capsule,delayed 40 mg PO DAILY PRN cap 09/28/19 04/16/20 Unknown release hydralazine 100 mg tablet 100 mg PO BID #180 tab 12/24/19 04/16/20 Unknown clonidine 0.3 mg/24 hr weekly 1 patch TOPICAL .weekly #4 ea 11/04/20 11/04/20 Unknown transdermal patch insulin aspart U-100 100 unit/mL See Rx Instructions SQ .COMPLEX 05/27/21 Unknown (3 mL) subcutaneous pen (Novolog #15 ml Flexpen U-100 Insulin aspart) Active Medications Generic Name Dose Route Start Last Admin Trade Name Karoline PRN Reason Stop Dose Admin Acetaminophen 650 mg 11/18/21 16:38 11/18/21 23:32 Acetaminophen 325 Mg Tab PO 12/18/21 16:37 650 mg Q4H PRN Administration Pain or Fever Clonidine HCl 0.3 mg 11/19/21 21:00 11/19/21 19:50 Clonidine Hcl 0.3 Mg Tab PO 12/19/21 20:59 0.3 mg HS NICOLETTE Administration Dextrose 25 - 50 ml 11/18/21 17:15 11/18/21 23:22 Dextrose 50% 50 Ml Syringe IV 12/18/21 17:14 25 ml UD PRN Administration Hypoglycemia Protocol Protocol Ceftriaxone Sodium 2,000 mg/ 70 mls @ 140 mls/hr 11/19/21 08:00 11/20/21 08:38 Dextrose IV 11/26/21 07:59 140 mls/hr DAILY@0800 NICOLETTE Administration Insulin Aspart 0 units 11/20/21 08:00 11/20/21 08:33 Insulin Aspart Per Unit SC 12/19/21 09:04 2 units Q4 NICOLETTE Administration Insulin Detemir 4 units 11/20/21 09:00 11/20/21 08:35 Insulin Detemir Flexpen/Flex Touch 100 Units/Ml 3ml SC 12/20/21 08:59 4 units QAM NICOLETTE Administration Losartan Potassium 100 mg 11/19/21 09:00 11/20/21 07:41 Losartan Potassium 50 Mg Tab PO 12/19/21 08:59 100 mg QAM NICOLETTE Administration Metoprolol Tartrate 50 mg 11/18/21 16:38 11/20/21 07:41 Metoprolol Tartrate 50 Mg Tab PO 12/18/21 16:37 50 mg QAM NICOLETTE Administration Pantoprazole Sodium 40 mg 11/19/21 09:00 11/19/21 09:25 Pantoprazole 40 Mg Tab PO 12/19/21 08:59 40 mg DAILY NICOLETTE Administration Sevelamer HCl 800 mg 11/18/21 17:00 11/19/21 19:29 Sevelamer Hcl 800 Mg Tablet PO 12/18/21 16:59 Not Given TIDM NICOLETTE NPO Date Last Intake of Fluids: 11/19/21 Time Last Intake of Fluids: 22:00 Date Last Intake of Solids: 11/19/21 Time Last Intake of Solids: 22:00 Last Intake of Solids Comment: Dr. Blanco and Dr. 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 Grandmother No problems noted. Mother Depression Anxiety Grandfather (Maternal) Heart disease Hypertension Myocardial infarction Grandmother (Maternal) Hypertension Grandfather (Paternal) Kidney disease Denies family history of Ovarian cancer Prostate cancer Lung cancer Colorectal cancer Past Surgical History Surgical History History of circumcision History of laparoscopy History of nephrectomy S/P kidney transplant "x2, most recently in 2013" Status post biopsy of kidney Social History Smoking Status: Current every day smoker tobacco type: cigarettes Smoking cigarettes per day: 1 pack every 2- 2.5 days Do You Dip or Chew Tobacco: No Hx Alcohol Use: No Hx Substance Use: No (pt denies) substance use type: does not use Physical Exam Vital Signs Last Vital Signs Temp 99.3 F 11/20/21 08:53 Pulse 69 11/20/21 08:53 Resp 19 11/20/21 08:53 BP 195/119 H 11/20/21 08:53 Pulse Ox 97 11/20/21 08:53 Testing Laboratory Results 11/18/21 11:45 11/18/21 23:45 PT 13.6 Seconds (9.0-12.0) H 11/18/21 11:45 INR 1.3 (0.9-1.1) H 11/18/21 11:45 APTT 44.7 Seconds (21.0-31.0) H 11/18/21 11:45 Blood Type O Positive 11/19/21 14:48 Antibody Screen POSITIVE A 11/19/21 14:48 11/18/21 11:56 Aerobic Blood Culture - Preliminary Blood Staphylococcus species Anaerobic Blood Culture - Preliminary No growth in Anaerobic bottle after 24 hours. 11/18/21 11:45 Aerobic Blood Culture - Preliminary Blood Staphylococcus species Anaerobic Blood Culture - Preliminary No growth in Anaerobic bottle after 24 hours. 11/19/21 15:55 Gram Stain - Final Arm,Left 11/20/21 11/20/21 11/19/21 07:20 04:10 23:47 POC Glucose 202 H 304 H* 162 H
[2021-11-20] MEDS ORDERED: ONDANSETRON INJ 2 MG/ML 2 ML VIAL IV PRN (09:27)
[2021-11-20] MEDS ORDERED: fentaNYL citrate 100 MCG/2 ML VIAL IV PRN (09:27)
[2021-11-20] MEDS ORDERED: ePHEDrine sulfate 50 MG/ML AMP IV PRN (09:27)
[2021-11-20] MEDS ORDERED: ATROPINE SULFATE 0.1 MG/ML 10ML SYR IV PRN (09:27)
[2021-11-20] MEDS ORDERED: PROPOFOL IV EMULSION 10 MG/ML 20 ML VIAL IV ONE ×2 (09:29→10:00)
[2021-11-20] MEDS ORDERED: LIDOCAINE 2% 2 ML VIAL/AMP(20MG/ML) INFIL ONE ×2 (09:29→10:00)
[2021-11-20] MEDS ORDERED: HEPARIN SOD (PORCINE) 5,000 UNITS/ML VIAL ONE (09:29)
[2021-11-20] MEDS ORDERED: LIDOCAINE 1% LOCAL 20 ML VIAL INFIL ONE (10:16)
--- NOTE | 2021-11-20 10:24 | Procedure Note ---
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 Operation Date: 11/20/21 12:00 <No data on this case meets the specified criteria> Operation Date: 11/20/21 15:15 Pre-Op Diagnosis: End Stage Renal Disease. Post-Op Diagnosis: End Stage Renal Disease. I identified the patient and participated in the time-out.: Yes Procedure Operation Date: 11/19/21 09:40 Actual Procedures p Left Upper Extremity Arteriovenous Fistula Removal.(Left) - Jeronimo Blanco MD Operation Date: 11/20/21 12:00 <No data on this case meets the specified criteria> Operation Date: 11/20/21 15:15 Actual Procedures p Insertion Temporary Dialysis Catheter, Right External Jugular Approach, Ultrasound Localization of Right External Jugular Vein, Fluoroscopy for Positioning(Right) - Jeronimo Blanco MD Surgeon Jeronimo Blanco MD Public Address System Mechanic MD [place] Estimated Blood Loss 5 Findings Consistent with Post-Op Diagnosis Specimens none Anesthesia Type MAC Disposition Accompanied Patient To Recovery: No Disposition: Recovery Room Indications This is a 26 year old male with end stage renal disease secondary to type 1 diabetes mellitus who presented a few days ago with infection of his left upper extremity fistula. This was excised yesterday. He is in need of temporary hemodialysis access while his blood cultures clear. He presents for temporary line placement. He refuses groin access. Description of Procedure The patient was taken to the angiographic suite. He was transferred over to the angiography table and placed in the supine position. The right neck was prepped and draped in the usual sterile fashion. A team timeout was performed. Ultrasound examination of the right neck revealed no obvious right internal jugular vein. This was likely occluded and scarred from prior lines in the neck. We did identify a patent right external jugular vein that was compressible and without filling defects. A needle was used to access the external jugular vein. A J wire would not pass centrally so we used an angled glidewire which did pass centrally. A small issa was made in the skin. The puncture site was dilated then a 16cm Mahurkar Elite dual lumen catheter was inserted and passed to a central position in the distal superior vena cava. The catheter was sutured in place using nylon sutures. Both ports aspirated and flushed easily and were then packed with heparin. A sterile dressing was applied to the catheter. The left arm dressing was changed. The incision is with skin edges viable and well approximated, with no hematoma, drainage, or erythema. The wound was re- dressed with 4x4 gauze and medipore tape. Dr Blanco was present and scrubbed for the entirety of the procedure. The patient left the angio suite in good condition and tolerated the procedure well. I attest to the content of the Intraoperative Record and any orders documented therein. Any exceptions are noted below.
--- NOTE | 2021-11-20 10:29 | Post Operative Brief Note ---
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 Operation Date: 11/20/21 12:00 <No data on this case meets the specified criteria> Operation Date: 11/20/21 15:15 Pre-Op Diagnosis: End Stage Renal Disease. Post-Op Diagnosis: End Stage Renal Disease. I identified the patient and participated in the time-out.: Yes Procedure Operation Date: 11/19/21 09:40 Actual Procedures p Left Upper Extremity Arteriovenous Fistula Removal.(Left) - Jeronimo Blanco MD Operation Date: 11/20/21 12:00 <No data on this case meets the specified criteria> Operation Date: 11/20/21 15:15 Actual Procedures p Insertion Temporary Dialysis Catheter, Right External Jugular Approach, Ultrasound Localization of Right External Jugular Vein, Fluoroscopy for Positioning(Right) - Jeronimo Blanco MD Surgeon Jeronimo Blanco MD Attorney At Law MD [place] Estimated Blood Loss 5 Findings Consistent with Post-Op Diagnosis Anesthesia Type MAC Complications none Disposition Accompanied Patient To Recovery: No Disposition: Recovery Room
--- NOTE | 2021-11-20 10:31 | Surgery Progress Note ---
Date of Service November 20, 2021 Assessment & Plan (1) Dialysis AV fistula infection: Plan: His incision is healing nicely. There is no drainage noted. His temporary dialysis catheter was inserted today. Blood cultures were ordered. If these are negative then we will go ahead with the placement of a PermCath on Tuesday. Admission and Anticipated Discharge Date Admission Date: November 18, 2021 Subjective Patient complaining of arm pain from the surgical site. Physical Exam Physical Exam: On exam the incision in the left arm is dry and clean. There is no erythema. There is no dehiscence of the wound. There is minimal swelling. The erythema which was present preoperatively is now resolved. This was redressed with 4 x 4's and Medipore tape. Results & Data ([facility]) Vital Signs (Past 12 Hours) Vital Signs Temp Pulse Pulse Pulse Resp BP Pulse Ox 11/20/21 08:53 37.4 C 69 19 195/119 H 97 11/20/21 08:41 178/128 H 11/20/21 07:42 36.9 C 68 25 H 192/127 H 99 11/20/21 07:30 37.6 C H 72 20 195/117 H 97 11/20/21 07:00 69 11/20/21 03:37 37.6 C H 74 20 159/96 H 93 11/20/21 01:55 82 20 171/101 H 93 11/19/21 23:54 72 20 179/100 H 94 11/19/21 23:46 78 11/19/21 23:30 71 20 172/115 H 97 11/19/21 22:58 37.6 C H 71 18 172/106 H 96 11/19/21 22:30 70 20 170/115 H 98
--- NOTE | 2021-11-20 10:33 | Anesthesiology Progress Note ---
Date of Service November 20, 2021 Anesthesia Post Procedure Vital Signs Vital Signs: Temp Pulse Pulse Pulse Pulse Resp BP 11/20/21 08:53 99.3 F 69 19 195/119 H 11/20/21 08:41 178/128 H 11/20/21 07:42 98.4 F 68 25 H 192/127 H 11/20/21 07:30 99.7 F H 72 20 195/117 H 11/20/21 07:00 69 11/20/21 03:37 99.7 F H 74 20 159/96 H 11/20/21 01:55 82 20 171/101 H 11/19/21 23:54 72 20 179/100 H 11/19/21 23:46 78 11/19/21 23:30 71 20 172/115 H 11/19/21 22:58 99.7 F H 71 18 172/106 H 11/19/21 22:30 70 20 170/115 H 11/19/21 22:00 73 20 165/105 H 11/19/21 21:30 69 20 163/106 H 11/19/21 21:00 70 20 153/96 H 11/19/21 20:32 73 22 178/114 H 11/19/21 19:49 98.6 F 68 24 173/115 H 11/19/21 19:22 98.6 F 69 20 170/114 H 11/19/21 18:29 98.8 F 68 18 167/103 H 11/19/21 18:05 71 19 159/101 H 11/19/21 17:55 73 17 159/98 H 11/19/21 17:45 99.5 F 75 22 161/101 H 11/19/21 17:35 73 15 168/103 H 11/19/21 17:25 72 18 164/102 H 11/19/21 17:15 70 26 H 161/101 H 11/19/21 17:09 98.2 F 70 22 151/96 H 11/19/21 14:24 99.9 F H 82 20 161/102 H 11/19/21 12:12 97.9 F 77 18 168/94 H Pulse Ox 11/20/21 08:53 97 11/20/21 08:41 11/20/21 07:42 99 11/20/21 07:30 97 11/20/21 07:00 11/20/21 03:37 93 11/20/21 01:55 93 11/19/21 23:54 94 11/19/21 23:46 11/19/21 23:30 97 11/19/21 22:58 96 11/19/21 22:30 98 11/19/21 22:00 95 11/19/21 21:30 97 11/19/21 21:00 92 11/19/21 20:32 98 11/19/21 19:49 98 11/19/21 19:22 100 11/19/21 18:29 95 11/19/21 18:05 95 11/19/21 17:55 97 11/19/21 17:45 96 11/19/21 17:35 96 11/19/21 17:25 99 11/19/21 17:15 100 11/19/21 17:09 100 11/19/21 14:24 98 11/19/21 12:12 94 Pain Intensity Left Leg: Pain Intensity: 9 Left Arm: Pain Intensity: 12 Transfer of Care Handoff Completed per policy Notes Mental Status: alert / awake / arousable and participated in evaluation Patient Amnestic to Procedure: Yes Nausea / Vomiting: adequately controlled Pain: adequately controlled Airway Patency, RR, SpO2: stable & adequate BP & HR: stable & adequate Hydration State: stable & adequate Anesthetic Complications: no major complications apparent and Pt Satisfied with anesthetic care
[2021-11-20] MEDS: SEVELAMER HCL 800 MG TABLET PO SCH ×3 (12:22→17:28)
[2021-11-20] MEDS: PANTOprazole 40 MG TAB PO SCH (12:22)
--- NOTE | 2021-11-20 14:14 | Pharmacy Report ---
Pharmacy Glycemic Short Note 2 - Date of Service November 20, 2021 - Glycemic Short BSG Results (Last 24 hours): 11/19/21 11/19/21 11/19/21 14:31 15:25 17:13 POC Glucose 487 H* 410 H* 262 H 11/19/21 11/19/21 11/19/21 18:13 18:46 20:35 POC Glucose 196 H 165 H 113 H 11/19/21 11/20/21 11/20/21 23:47 04:10 07:20 POC Glucose 162 H 304 H* 202 H 11/20/21 11/20/21 11/20/21 09:42 10:32 11:25 POC Glucose 199 H 154 H 124 H OUTPATIENT ANTIDIABETIC REGIMEN: * Clarifying basal regimen * Per Dr. Frias - patient's family reported he was not on basal but thinks he is type 1 and patient reported the same. Dr. Frias called [facility] who had same info. PCP office is closed at this time. Dr. Frias to continue to inquire and will follow up. * Novolog * Correction factor: 50 mg/dL/unit, starting above 200 mg/dL * Carb ratio: 15 g CHO/unit * HbA1c outdated, but not repeated given ESRD * HbA1c somewhat unreliable in ESRD patients d/t interactions between the A1c analyzing technique and high levels of urea in ESRD, reduced RBC life span, iron deficiency anemia, and EPO administration. HbA1c > 7.5% in ESRD patient may overestimate the extent of hyperglycemia in ESRD patients. ASSESSMENT: 11/20: * BSGs erratic over last 24hr (some of which are post prandial given non- adherence to diet orders). Patient went to OR yesterday afternoon and received 10units SQ Novolog for a post prandial BSG. BSGs trended down to 113 at bedtime. Received a total of 3 units basal and 13 bolus yesterday. * Has been NPO since yesterday -- Type 1 diet ordered this afternoon. Continues on antibiotics. * Increased to 4units basal this AM. Transitioned to Levemir in attempt to minimize patient reported overnight lows. * Prandial insulin goal BSG adjusted to 110-160mg/dL. No other changes to Novolo g parameters at this point. May require tightening if BSGs uncontrolled once consistent diet. 11/19: * BSGs well controlled with insulin infusion. Infusion running at low rates, 0.5unit/hr this AM, and was quite consistent at that rate. Patient is not adhering to diet orders and bringing in outside food/drink which is interfering with management (hospitalist aware). Patient with (+) blood cultures, and receiving iHD which will additionally impact glycemic management. * D/w hospitalist this AM -- plan to convert to SQ. Dr. Frias confirmed patient is not on basal insulin @ home as he hasn't tolerated in past due to low BSGs. However, would like to initiate while admitted given DM1. * Insulin gtt turned off this AM. Lantus 3 units SQ X 1 as drip shut off. Very conservative basal titration -- starting at ~ 0.2unit/kg/day divided. Will plan for an HS scale tonight. * Novolog parameters to start based upon home regimen. CF/CR 50/15 (correction for BSG >200mg/dL). 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 Will hopefully be able to attempt transition tomorrow AM after further clarification regarding outpatient regimen. PLAN FOR INPATIENT GLYCEMIC CONTROL: * Levemir 4 units SQ qAM * Bolus insulin * Novolog ACHS; correction factor -50mg/dL/unit, carb ratio 15 g/unit
--- NOTE | 2021-11-20 19:24 | Nephrology Progress Note ---
Date of Service November 20, 2021 Assessment & Plan (1) CKD (chronic kidney disease) stage V requiring chronic dialysis: Plan: ESRD on MWF HD w/ frequent hyperkalemia, though K today acceptable. - Had temporary line 11/20 - For 3,5 hr Hd today, 2 k bath, 2.5 - 3 lit UF -Daily bmp, CBC Chronically raised BP 2/ non compliance with medication and Tx - Increase clonidine to 0.3 mg BID , add nifedipine 180 mg. - Volume optimization would help. (2) Dialysis AV fistula infection: Plan: hAD AV fistula excised - Vascular on board (3) Bacteremia: Plan: GPC clusters; adjacent to AVF likely source -f/u [facility] cultures from 11/18 -Renally dose abx >>>f/u vascular surgery recs; will need at least 2 days negative cxs for TDC placement if that is needed (4) Mass of left thigh: Plan: painful and limiting ambulation. -f/u surgical recs; liposarcoma on differential; at higher malignancy risk given txplt hx; PT eval Admission and Anticipated Discharge Date Admission Date: November 18, 2021 Subjective Alert , oriented c/o pain from surgical site. no SOB Review of Systems Review of Systems: All systems reviewed & are unremarkable except as noted in HPI & below Physical Exam Physical Exam: Constitutional:L well developed, we ll nourished,not i n distress, + ill appearing Eyes: EOM intact bilater ally ENMT: Ears: no external ear abnormality N ose: no external n ose abnormality M outh: + dry oral m ucous membranes Neck: no nuchal rigidity Respiratory: normal respiratory effort Auscultat ion: + diminished lung sounds and + crackles (bibasila r) Cardiovascular:L Rate/Rhythm: regul ar rate and regula r rhythm Extremit ies: + AV fistula (w/ 3 x 3 cm red e specially tender a shruthi, shiny w/ tram k macule); no dru a Gastrointestinal ( Abdomen): Inspection/Auscult ation: normal coral l sounds Percussi on/Palpation: abdo men soft; abdomen nontender Musculoskeletal: Extremities: stren gth 5/5 throughout Skin: no rashes, warm an d dry Neurologic: barraza, fluent speech , no tremor Psychiatric: Orientation: alert and oriented x 3 Results & Data ([facility]) Vital Signs (Past 12 Hours) Vital Signs Temp Pulse Pulse Pulse Pulse Resp BP 11/20/21 19:00 83 203/115 H 11/20/21 18:30 75 203/111 H 11/20/21 18:00 86 194/115 H 11/20/21 17:30 85 180/102 H 11/20/21 17:00 71 190/122 H 11/20/21 16:58 36.9 C 78 11/20/21 16:00 70 11/20/21 15:35 36.9 C 68 20 11/20/21 14:45 68 18 11/20/21 12:37 37 C 65 18 11/20/21 12:00 11/20/21 11:57 11/20/21 11:24 36.9 C 64 18 11/20/21 10:58 36.8 C 61 19 11/20/21 10:35 60 14 11/20/21 10:27 36.3 C L 62 14 11/20/21 08:53 37.4 C 69 19 11/20/21 08:41 11/20/21 07:42 36.9 C 68 25 H 11/20/21 07:30 37.6 C H 72 20 BP Pulse Ox 11/20/21 19:00 11/20/21 18:30 11/20/21 18:00 11/20/21 17:30 11/20/21 17:00 11/20/21 16:58 11/20/21 16:00 11/20/21 15:35 191/119 H 97 11/20/21 14:45 193/123 H 100 11/20/21 12:37 183/109 H 97 11/20/21 12:00 187/116 H 11/20/21 11:57 191/116 H 11/20/21 11:24 178/116 H 95 11/20/21 10:58 168/110 H 98 11/20/21 10:35 174/112 H 100 11/20/21 10:27 183/113 H 100 11/20/21 08:53 195/119 H 97 11/20/21 08:41 178/128 H 11/20/21 07:42 192/127 H 99 11/20/21 07:30 195/117 H 97 Laboratory Results 11/18/21 11:45 11/18/21 23:45
[2021-11-20] MEDS ORDERED: amLODIPine BESYLATE 5 MG TAB PO ONE (19:52)
--- NOTE | 2021-11-20 19:56 | Hospitalist Progress Note ---
Date of Service November 20, 2021 Assessment & Plan (1) Dialysis AV fistula infection: Plan: POD #1 s/p removal of LUE AV fistula by Dr Blanco. Culture with staph species. Likely MSSA given the blood culture results. Continue rocephin. Stop IV vancomycin. Pain control w/ dilaudid - increase to 0.5mg each dose; 0.1mg and 0.2mg not effective. (2) Bacteremia: Plan: 2nd to probable MSSA given PCR testing. Needs repeat blood cultures to ensure sterility but to date he is refusing repeat labs. Source - #1 above. Echo completed - AV and PV not well seen, TV not well seen. No obvious vegetations, but he may need BINH to r/o SBE. Cont rocephin IV. Stop vancomycin. MRI lumbar spine pending -r/o diskitis, r/o epidural abscess. (3) HTN (hypertension): Plan: SEVERELY uncontrolled. Increase clonidine to 0.3mg BID. Resume amlodipine 5mg now. Likely to need 5mg BID. Continue losartan 100mg daily. Continue metoprolol 50mg - uncertain why he is only on once daily dosing as it is short acting. Should be BID dosing. Stopped alpha albert. (4) DM type 1 (diabetes mellitus, type 1): Plan: Pharmacy glycemic team is managing. Appreciate their assistance. A1C = 9.3% (2020). Repeat pending but he is refusing lab draw. (5) Mass of left thigh: Plan: Seen by gen surg - nothing to do at this time. Outpatient f/u with future removal if desired by patient. Certainly not urgent. (6) GERD (gastroesophageal reflux disease): Plan: PPI daily (7) Kidney transplant failure and rejection: Plan: now on HD - M/W/F. Appreciate [facility] assistance. (8) Back pain: Plan: acute onset x 2-3 days. VERY worrisome in light of bacteremia. MRI lumbar spine STAT - r/o epidural abscess, r/o diskitis. pain control. await imaging. (9) Tobacco dependence: Plan: Nicoderm patch 14mg/day Residential Nurse to quit (10) Diastolic dysfunction: Plan: grade 2, as seen on echo this is likely due to long-standing, poorly controlled HTN (11) Pulmonary HTN: Plan: mod-severe as seen on echo. etiology? O2 sats are adequate (12) ESRD (end stage renal disease) on dialysis: Plan: appreciate [facility] nephrology assistance schedule - M/W/ Admission and Anticipated Discharge Date Admission Date: November 18, 2021 Subjective called by nursing staff just prior to him going for dialysis catheter placement that he was having severe left arm pain (where former AV fistula was) dilaudid increased to 0.5mg prn patient went for HD catheter placement, right IJ, by Dr Blanco upon return to the PCU he had bleeding from the catheter site - Dr Blanco aware during bedside rounds his main complaints included left upper arm pain, lower back pain x 2-3 days, and left leg pain in the groin region his left leg did not feel as weak as previous he also complained of mild operative site pain over the right IJ region telemetry overnight - NSR Review of Systems Review of Systems: gen - fevers, chills; refusing lab draws CV - no chest pain pulm - no cough or dyspnea GI - no abd pain Physical Exam Physical Exam: gen - looks unwell, looks uncomfortable; but a/o x 3 neck - right IJ dialysis catheter; no active bleeding from site during my exam mouth - MM dry heart - RRR, s1 s2, 2/6 AUGUSTINE LSB lungs - CTA b/l abd - soft NT ND BS+ ext - no edema, pulses 2+ b/l skin - dressings intact LUE neuro - hip flexion strength 5/5 on right; flexion of hip on left 4/5; ankle dorsiflexion/plantarflexion 5/5 musculo - left distal anterior thigh small movable mass Results & Data Results & Data ([facility]) Vital Signs (Past 12 Hours) Vital Signs Temp Pulse Pulse Pulse Resp BP BP 11/20/21 19:30 83 205/127 H 11/20/21 19:29 36.9 C 82 16 205/127 H 11/20/21 19:00 83 203/115 H 11/20/21 18:30 75 203/111 H 11/20/21 18:00 86 194/115 H 11/20/21 17:30 85 180/102 H 11/20/21 17:00 71 190/122 H 11/20/21 16:58 36.9 C 78 11/20/21 16:00 70 11/20/21 15:35 36.9 C 68 20 191/119 H 11/20/21 14:45 68 18 193/123 H 11/20/21 12:37 37 C 65 18 183/109 H 11/20/21 12:00 187/116 H 11/20/21 11:57 191/116 H 11/20/21 11:24 36.9 C 64 18 178/116 H 11/20/21 10:58 36.8 C 61 19 168/110 H 11/20/21 10:35 60 14 174/112 H 11/20/21 10:27 36.3 C L 62 14 183/113 H 11/20/21 08:53 37.4 C 69 19 195/119 H 11/20/21 08:41 178/128 H Pulse Ox 11/20/21 19:30 11/20/21 19:29 94 11/20/21 19:00 11/20/21 18:30 11/20/21 18:00 11/20/21 17:30 11/20/21 17:00 11/20/21 16:58 11/20/21 16:00 11/20/21 15:35 97 11/20/21 14:45 100 11/20/21 12:37 97 11/20/21 12:00 11/20/21 11:57 11/20/21 11:24 95 11/20/21 10:58 98 11/20/21 10:35 100 11/20/21 10:27 100 11/20/21 08:53 97 11/20/21 08:41 Laboratory Results BSGs high blood cultures - staph species, but PCR testing is + for MSSA (not MRSA) wound culture from LUE AV fistula - staph species PG Care Time/CCT Total # of Minutes Spent Total Time Spent with Patient: Total time spent is greater than 50% in coordination of care (as documented) at patient's floor/unit and/or counseling patient: Coding Level of Care Code 84645 Subseq Hosp Care Lvl 3 Diagnoses Dialysis AV fistula infection T82.7XXA Bacteremia R78.81 HTN (hypertension) I10 DM type 1 (diabetes mellitus, type 1) E10.9 Mass of left thigh R22.42 GERD (gastroesophageal reflux disease) K21.9 Kidney transplant failure and rejection T86.12; T86.11 Back pain M54.9 Tobacco dependence F17.200 Diastolic dysfunction I51.89 Pulmonary HTN I27.20 ESRD (end stage renal disease) on dialysis N18.6; Z99.2
[2021-11-20] MEDS: ACETAMINOPHEN 325 MG TAB PO PRN (20:08)
[2021-11-20] MEDS: cloNIDine HCL 0.3 MG TAB PO SCH ×2 (20:08→20:15)
--- NOTE | 2021-11-20 23:14 | XRay Report ---
XR orbits for MRI HISTORY: 26 years-old Male Screening for foreign body for MRI COMPARISON: None TECHNIQUE: 3 views of the orbits FINDINGS: No opaque foreign body of the orbits identified. No acute facial bone fracture. Mastoid air cells and paranasal sinuses appear generally clear. IMPRESSION: No opaque foreign body of the orbits. ACT 112: Negative or not required by law. The above report was generated using voice recognition software. It may contain grammatical, syntax o r spelling errors. Electronically signed by: Harpreet Gomez M.D. 11/20/2021 11:12 PM
[2021-11-21] MEDS: INSULIN ASPART PER UNIT SC SCH ×5 (08:16→20:23)
[2021-11-21] MEDS: INSULIN DETEMIR FLEXPEN/FLEX TOUCH 100 UNITS/ML 3ML SC SCH (08:17)
[2021-11-21] MEDS: LOSARTAN POTASSIUM 50 MG TAB PO SCH (08:39)
[2021-11-21] MEDS: METOPROLOL TARTRATE 50 MG TAB PO SCH ×2 (08:39→20:06)
[2021-11-21] MEDS: NICOTINE 14 MG/24 HR PATCH TD SCH (08:39)
[2021-11-21] MEDS: cloNIDine HCL 0.3 MG TAB PO SCH ×2 (08:39→20:50)
[2021-11-21] MEDS: PANTOprazole 40 MG TAB PO SCH (08:39)
[2021-11-21] MEDS: SEVELAMER HCL 800 MG TABLET PO SCH ×3 (08:39→18:02)
[2021-11-21] MEDS: amLODIPine BESYLATE 5 MG TAB PO SCH (08:39)
[2021-11-21] MEDS: cefTRIAXone SODIUM 2,000 MG in DEXTROSE 5% 50 ML IV SCH (08:40)
[2021-11-21] MEDS: HYDROmorphone INJ 1 MG/ML SYRINGE IV PRN ×2 (08:46→20:09)
[2021-11-21] MEDS ORDERED: amLODIPine BESYLATE 5 MG TAB PO SCH (09:00)
[2021-11-21] MEDS ORDERED: SEVERE STRESS LEVEL ONE (11:37)
[2021-11-21] MEDS ORDERED: STAT IV Infusion **Titration per Protocol STA (11:37)
[2021-11-21] MEDS ORDERED: INSULIN PROTOCOL GOAL RANGE ONE (11:37)
[2021-11-21] MEDS ORDERED: hydrALAZINE HCL 25 MG TAB PO ONE (11:45)
[2021-11-21] MEDS ORDERED: INSULIN HUMAN REGULAR IV BOLUS 2 UNITS in SYRINGE 0 ML IV ONE (11:45)
[2021-11-21] MEDS: INSULIN REGULAR 250 UNITS in SODIUM CHLORIDE 0.9% 247.5 ML IV SCH (12:29)
--- NOTE | 2021-11-21 12:56 | Magnetic Resonance Report ---
MR lumbar spine wo con CLINICAL HISTORY: staph bacteremia; severe l-spine pain; eval absces. COMPARISON: None. TECHNIQUE: Multiplanar multisequence images of the Lumbar Spine were performed without contrast. FINDINGS: There is no evidence for vertebral body fracture. The heights of the vertebral bodies are maintained. The vertebral bodies are in anatomic alignment. Homogeneous marrow signal is seen without evidence f or marrow edema or marrow replacement. The paraspinal soft tissues are within normal limits with no e vidence for abscess. T12-L1: The disc space height is maintained. There are no focal disc protrusions or extrusions ident ified. The thecal sac and epidural fat are maintained. The neural foramen are patent bilaterally. Th ere is no evidence for nerve root encroachment. The facet joints are within normal limits. L1-2: The disc space height is maintained. There are no focal disc protrusions or extrusions identi fied. The thecal sac and epidural fat are maintained. The neural foramen are patent bilaterally. The re is no evidence for nerve root encroachment. The facet joints are within normal limits. L2-3: The disc space height is maintained. There are no focal disc protrusions or extrusions identi fied. The thecal sac and epidural fat are maintained. The neural foramen are patent bilaterally. The re is no evidence for nerve root encroachment. The facet joints are within normal limits. L3-4: The disc space height is maintained. There are no focal disc protrusions or extrusions identi fied. The thecal sac and epidural fat are maintained. The neural foramen are patent bilaterally. The re is no evidence for nerve root encroachment. The facet joints are within normal limits. L4-5: The disc space height is maintained. There is mild bulging of the annulus present. There are n o focal disc protrusions or extrusions identified. The thecal sac and epidural fat are maintained. T he neural foramen are patent bilaterally. There is no evidence for nerve root encroachment. The facet joints are within normal limits. L5-S1: The disc space height is maintained. There are no focal disc protrusions or extrusions ident ified. The thecal sac and epidural fat are maintained. The neural foramen are patent bilaterally. Th ere is no evidence for nerve root encroachment. The facet joints are within normal limits. IMPRESSION: 1. Essentially negative MR of the lumbar spine. 2. No evidence for paraspinal abscess. 3. Mild bulging of the annulus at L4-5. ACT 112: Negative or not required by law. Electronically signed by: Nick Baugh M.D. 11/21/2021 12:52 PM
--- NOTE | 2021-11-21 14:18 | Pharmacy Report ---
Pharmacy Glycemic Short Note 2 - Date of Service November 21, 2021 - Glycemic Short BSG Results (Last 24 hours): 11/20/21 11/20/21 11/21/21 16:17 20:13 07:29 POC Glucose 143 H 260 H 413 H* 11/21/21 11/21/21 11/21/21 07:29 11:17 11:18 POC Glucose 549 H* 508 H* 510 H* 11/21/21 13:13 POC Glucose 564 H* OUTPATIENT ANTIDIABETIC REGIMEN: * Clarifying basal regimen * Per Dr. Frias - patient's family reported he was not on basal but thinks he is type 1 and patient reported the same. Dr. Frias called [facility] who had same info. PCP office is closed at this time. Dr. Frias to continue to inquire and will follow up. * Novolog * Correction factor: 50 mg/dL/unit, starting above 200 mg/dL * Carb ratio: 15 g CHO/unit * HbA1c outdated, but not repeated given ESRD * HbA1c somewhat unreliable in ESRD patients d/t interactions between the A1c analyzing technique and high levels of urea in ESRD, reduced RBC life span, iron deficiency anemia, and EPO administration. HbA1c > 7.5% in ESRD patient may overestimate the extent of hyperglycemia in ESRD patients. ASSESSMENT: 11/21: * BSG of 549 mg/dL this morning, trialed Lantus/Novolog SC only at that time but lunchtime BSG of 510 mg/dL * Restart insulin infusion - unsure of baseline insulin needs, insulin gtt remains safest option to bring BSGs to normal range * Ongoing concern of non-compliance with diet orders/snacking * HD yesterday * Continues on IV Rocephin daily 11/20: * BSGs erratic over last 24hr (some of which are post prandial given non- adherence to diet orders). Patient went to OR yesterday afternoon and received 10units SQ Novolog for a post prandial BSG. BSGs trended down to 113 at bedtime. Received a total of 3 units basal and 13 bolus yesterday. * Has been NPO since yesterday -- Type 1 diet ordered this afternoon. Continues on antibiotics. * Increased to 4units basal this AM. Transitioned to Levemir in attempt to minimize patient reported overnight lows. * Prandial insulin goal BSG adjusted to 110-160mg/dL. No other changes to Novolog parameters at this point. May require tightening if BSGs uncontrolled once consistent diet. 11/19: * BSGs well controlled with insulin infusion. Infusion running at low rates, 0.5unit/hr this AM, and was quite consistent at that rate. Patient is not adhering to diet orders and bringing in outside food/drink which is interfering with management (hospitalist aware). Patient with (+) blood cultures, and receiving iHD which will additionally impact glycemic management. * D/w hospitalist this AM -- plan to convert to SQ. Dr. Frias confirmed patient is not on basal insulin @ home as he hasn't tolerated in past due to low BSGs. However, would like to initiate while admitted given DM1. * Insulin gtt turned off this AM. Lantus 3 units SQ X 1 as drip shut off. Very conservative basal titration -- starting at ~ 0.2unit/kg/day divided. Will plan for an HS scale tonight. * Novolog parameters to start based upon home regimen. CF/CR 50/15 (correction for BSG >200mg/dL). 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 Will hopefully be able to attempt transition tomorrow AM after further clarification regarding outpatient regimen. PLAN FOR INPATIENT GLYCEMIC CONTROL: * Insulin infusion * Levemir 4 units SQ qAM * Additional 8 units of Levemir this afternoon to equal 12 units (~0.2 unit/kg) * Bolus insulin * Novolog ACHS to cover meals per insulin gtt calculator
[2021-11-21] MEDS ORDERED: INSULIN DETEMIR FLEXPEN/FLEX TOUCH 100 UNITS/ML 3ML SC ONE (14:20)
[2021-11-21 14:26] LABS: Basophils # (auto) 0.05 K/uL (0-0.2); Basophils % (auto) 0.7 %; Eosinophils # (auto) 0.79 K/uL (0-0.5); Eosinophils % (auto) 11.1 %; Hematocrit (blood only) 34.2 % (42-52); Immature Granulocytes # (auto) 0.08 K/uL (0.00-0.02); Immature Granulocytes % (auto) 1.1 %; Lymphocytes # (auto) 1.21 K/uL (1.2-3.4); Lymphocytes % (auto) 16.9 %; Mean Corpuscular Hemoglobin 31.4 pg (25-34); Mean Corpuscular Hgb Conc 32.2 g/dL (32-36); Mean Corpuscular Volume 97.7 fL (80-100); Mean Platelet Volume 11.9 fL (7.4-10.4); Monocytes # (auto) 0.41 K/uL (0.11-0.59); Monocytes % (auto) 5.7 %; Neutrophils % (auto) 64.5 %; Platelet Count 112 K/uL (130-400); RDW Coefficient of Variation 15.3 % (11.5-14.5); RDW Standard Deviation 54.6 fL (36.4-46.3); White Blood Count 7.14 K/uL (4.8-10.8)
--- NOTE | 2021-11-21 14:27 | Nephrology Progress Note ---
Date of Service November 21, 2021 Assessment & Plan (1) CKD (chronic kidney disease) stage V requiring chronic dialysis: Plan: ESRD on MWF HD w/ frequent hyperkalemia, though K today acceptable. - Had temporary line 11/20 - HD with 2.5 lit UF on 11/20 - Next HD on Mobay. - Daily bmp, CBC Chronically raised BP 2/ non compliance with medication and Tx - Better controlled with increase clonidine to 0.3 mg BID and adding amlodipine - Volume optimization also helped. (2) Dialysis AV fistula infection: Plan: hAD AV fistula excised - Vascular on board (3) Bacteremia: Plan: GPC clusters; adjacent to AVF likely source -f/u [facility] cultures from 11/18 -Renally dose abx >>>f/u vascular surgery recs; will need at least 2 days negative cxs for TDC placement if that is needed (4) Mass of left thigh: Plan: painful and limiting ambulation. -f/u surgical recs; liposarcoma on differential; at higher malignancy risk given txplt hx; PT eval Admission and Anticipated Discharge Date Admission Date: November 18, 2021 Subjective Lying comfortable , no distress c/o pain at the surgical site Review of Systems Review of Systems: All systems reviewed & are unremarkable except as noted in Subjective Physical Exam Physical Exam: Constitutional:L well developed, we ll nourished,not i n distress, Eyes: EOM intact bilater ally ENMT: Ears: no external ear abnormality N ose: no external n ose abnormality M outh: moist mucou s membranes Neck: no nuchal rigidity Respiratory: normal respiratory effort Auscultat ion: + diminished lung sounds and + crackles (bibasila r) Cardiovascular:L Rate/Rhythm: regul ar rate and regula r rhythm Extremit ies:no bleeding/di schareg at the kristopher gical site. Gastrointestinal ( Abdomen): Inspection/Auscult ation: normal coral l sounds Percussi on/Palpation: abdo men soft; abdomen nontender Musculoskeletal: Extremities: stren gth 5/5 throughout Skin: no rashes, warm an d dry Neurologic: barraza, fluent speech , no tremor Psychiatric: Orientation: alert and oriented x 3 Results & Data ([facility]) Vital Signs (Past 12 Hours) Vital Signs Temp Pulse Pulse Resp BP Pulse Ox 11/21/21 11:52 36.9 C 63 9 L 178/111 H 96 11/21/21 08:00 65 11/21/21 07:58 36.6 C 67 15 149/132 H 95 11/21/21 03:37 36.8 C 69 21 222/125 H 92
[2021-11-21 14:35] LABS: Estimated Average Glucose 157 mg/dl; Hemoglobin A1C 7.1 % (4.5-5.6)
[2021-11-21 15:01] LABS: Albumin Level 3.2 gm/dl (3.4-5.0); BUN Creatinine Ratio 6.1 (10-20); Bilirubin,Total 0.5 mg/dl (0.2-1.0); C Reactive Protein 14.12 mg/dl (0-0.5); Calcium 8.6 mg/dl (8.5-10.1); Creatinine Clr Calc Pharmacy 11.7 ml/min; Est GFR (African American) 10.7 ml/min; Est GFR (Non-African American) 9.2 ml/min; Globulin 3.1 gm/dl (2.5-4.0); Potassium 4.7 mmol/L (3.5-5.1); Total Protein 6.3 gm/dl (6.0-8.3)
--- NOTE | 2021-11-21 19:40 | Hospitalist Progress Note ---
Date of Service November 21, 2021 Assessment & Plan (1) Dialysis AV fistula infection: Plan: POD #2 s/p removal of LUE AV fistula by Dr Blanco. Culture with MSSA. Continue rocephin 2gm IV daily. Pain control w/ dilaudid prn. Temporary R IJ dialysis catheter placed yesterday. To have tunneled permanent HD catheter placement next week once blood is sterile. Blood cx's were indeed obtained this afternoon. (2) Bacteremia: Plan: 2nd to MSSA. Source - LUE AV fistula infection. Repeat blood cx's today successfully drawn. Echo completed - AV and PV not well seen, TV not well seen. No obvious vege tations, but he may need BINH to r/o SBE. Cont rocephin IV. Overnight STAT rad reading of MRI lumbar spine was concerning for T12/L1 early discitis. Dr Acevedo from ortho to see in consult tomorrow. No abscess seen. If it turns out that the lumbar spine is not harboring infection he may need a BINH to exclude SBE as the 2D echo had poor views of his valves. (3) HTN (hypertension): Plan: SEVERELY uncontrolled. Increased his clonidine to 0.3mg BID. Increased his amlodipine to 10mg qam. Continue losartan 100mg daily. Increase metoprolol to 50mg BID starting tonight. Stopped his alpha albert. If BPs remain refractory then add back hydralazine 25mg BID. (4) DM type 1 (diabetes mellitus, type 1): Plan: Pharmacy glycemic team is managing. Appreciate their assistance. A1C = 9.3% (2020). A1C today = 7.1%. Uncertain, given his ACD from ESRD, how accurate the a1c is. Disl-raj-ffuo he is severely uncontrolled this am. I corresponded with pharmacy - insulin drip to be resumed. (5) Mass of left thigh: Plan: Seen by gen surg - nothing to do at this time. Outpatient f/u with future removal if desired by patient. Certainly not urgent. (6) GERD (gastroesophageal reflux disease): Plan: PPI daily (7) Kidney transplant failure and rejection: Plan: now on HD - M/W/F. Appreciate [facility] assistance. (8) Back pain: Plan: acute onset x 2-3 days in the setting of chronic low back pain. VERY worrisome in light of bacteremia. MRI lumbar spine obtained - STAT rad report from overnight - no epidural abscess but concern for T12/L1 early diskitis. I spoke with Dr Acevedo from ortho spine who will consult tomorrow. Cont IV rocephin. pain control. 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 etiology? O2 sats are adequate Denies any pulmonary symptoms with activity (12) ESRD (end stage renal disease) on dialysis: Plan: appreciate [facility] nephrology assistance schedule - M/W/ Plan: family updated at bedside extensively Admission and Anticipated Discharge Date Admission Date: November 18, 2021 Subjective patient much more comfortable during rounds today in comparison to yesterday his grandparents & brother were visiting during my rounds we had lengthy discussion about plan of care, MRI l-spine results, etc his LUE pain is improved today his appetite is poor/fair no fever/chills today denies dyspnea, chest pain or abdominal pain pt states he did NOT snack overnight or early this am he states that his blood sugars are "always like this" finally, he is willing to allow phlebotomy to come & try to get his blood cx's Review of Systems Review of Systems: gen - no further fevers, chills CV - no cp, no orthopnea pulm - no cough or congestion or dyspnea GI - no pain, nausea or emesis Physical Exam Physical Exam: gen - looks better today; awake/alert; nontoxic neck - right IJ dialysis catheter mouth - MMM, no thrush plaques heart - RRR, s1 s2, 2/6 AUGUSTINE LSB lungs - CTA b/l abd - soft NT ND BS+ ext - no ankle edema, pulses 2+ b/l skin - dressings intact LUE; no drainage spine - mildly tender at expected location of T12/L1/L2 with palpation; no gross abnormalities Results & Data Results & Data ([facility]) Vital Signs (Past 12 Hours) Vital Signs Temp Pulse Pulse Resp BP Pulse Ox 11/21/21 15:32 37.0 C 80 14 198/125 H 99 11/21/21 14:20 75 11/21/21 11:52 36.9 C 63 9 L 178/111 H 96 11/21/21 08:00 65 11/21/21 07:58 36.6 C 67 15 149/132 H 95 Laboratory Results Laboratory Results - last 24 hr 11/20/21 11/21/21 11/21/21 20:13 07:29 07:29 WBC RBC Hgb Hct MCV MCH MCHC RDW Std Deviation RDW Coeff of Kaylene Plt Count MPV Immature Gran % (Auto) Neut % (Auto) Lymph % (Auto) Butler % (Auto) Eos % (Auto) Baso % (Auto) Neut # (Auto) Lymph # (Auto) Butler # (Auto) Eos # (Auto) Baso # (Auto) Immature Gran # (Auto) ESR Sodium Potassium Chloride Carbon Dioxide Anion Gap BUN Creatinine Est Cr Clr Drug Dosing Est GFR ( Amer) Est GFR (Non-Af Amer) BUN/Creatinine Ratio Glucose POC Glucose 260 H 413 H* 549 H* Estimat Average Glucose Hemoglobin A1c Calcium Total Bilirubin AST ALT Alkaline Phosphatase C-Reactive Protein Total Protein Albumin Globulin Albumin/Globulin Ratio 11/21/21 11/21/21 11/21/21 11:17 11:18 13:13 WBC RBC Hgb Hct MCV MCH MCHC RDW Std Deviation RDW Coeff of Kayelne Plt Count MPV Immature Gran % (Auto) Neut % (Auto) Lymph % (Auto) Butler % (Auto) Eos % (Auto) Baso % (Auto) Neut # (Auto) Lymph # (Auto) Butler # (Auto) Eos # (Auto) Baso # (Auto) Immature Gran # (Auto) ESR Sodium Potassium Chloride Carbon Dioxide Anion Gap BUN Creatinine Est Cr Clr Drug Dosing Est GFR ( Amer) Est GFR (Non-Af Amer) BUN/Creatinine Ratio Glucose POC Glucose 508 H* 510 H* 564 H* Estimat Average Glucose Hemoglobin A1c Calcium Total Bilirubin AST ALT Alkaline Phosphatase C-Reactive Protein Total Protein Albumin Globulin Albumin/Globulin Ratio 11/21/21 11/21/21 11/21/21 13:52 13:52 13:52 WBC 7.14 RBC 3.50 L Hgb 11.0 L Hct 34.2 L MCV 97.7 MCH 31.4 MCHC 32.2 RDW Std Deviation 54.6 H RDW Coeff of Kaylene 15.3 H Plt Count 112 L MPV 11.9 H Immature Gran % (Auto) 1.1 Neut % (Auto) 64.5 Lymph % (Auto) 16.9 Butler % (Auto) 5.7 Eos % (Auto) 11.1 Baso % (Auto) 0.7 Neut # (Auto) 4.60 Lymph # (Auto) 1.21 Butler # (Auto) 0.41 Eos # (Auto) 0.79 H Baso # (Auto) 0.05 Immature Gran # (Auto) 0.08 H ESR 71 H Sodium 129 L Potassium 4.7 Chloride 91 L Carbon Dioxide 26 Anion Gap 12 H BUN 45 H Creatinine 7.33 H* Est Cr Clr Drug Dosing 11.7 Est GFR ( Amer) 10.7 Est GFR (Non-Af Amer) 9.2 BUN/Creatinine Ratio 6.1 L Glucose 507 H* POC Glucose Estimat Average Glucose Hemoglobin A1c Calcium 8.6 Total Bilirubin 0.5 AST 24 ALT 33 Alkaline Phosphatase 280 H C-Reactive Protein 14.12 H Total Protein 6.3 Albumin 3.2 L Globulin 3.1 Albumin/Globulin Ratio 1.0 11/21/21 11/21/21 11/21/21 13:52 14:14 15:38 WBC RBC Hgb Hct MCV MCH MCHC RDW Std Deviation RDW Coeff of Kaylene Plt Count MPV Immature Gran % (Auto) Neut % (Auto) Lymph % (Auto) Butler % (Auto) Eos % (Auto) Baso % (Auto) Neut # (Auto) Lymph # (Auto) Butler # (Auto) Eos # (Auto) Baso # (Auto) Immature Gran # (Auto) ESR Sodium Potassium Chloride Carbon Dioxide Anion Gap BUN Creatinine Est Cr Clr Drug Dosing Est GFR ( Amer) Est GFR (Non-Af Amer) BUN/Creatinine Ratio Glucose POC Glucose 489 H* 334 H* Estimat Average Glucose 157 Hemoglobin A1c 7.1 H Calcium Total Bilirubin AST ALT Alkaline Phosphatase C-Reactive Protein Total Protein Albumin Globulin Albumin/Globulin Ratio 11/21/21 11/21/21 11/21/21 16:47 17:49 18:38 WBC RBC Hgb Hct MCV MCH MCHC RDW Std Deviation RDW Coeff of Kaylene Plt Count MPV Immature Gran % (Auto) Neut % (Auto) Lymph % (Auto) Butler % (Auto) Eos % (Auto) Baso % (Auto) Neut # (Auto) Lymph # (Auto) Butler # (Auto) Eos # (Auto) Baso # (Auto) Immature Gran # (Auto) ESR Sodium Potassium Chloride Carbon Dioxide Anion Gap BUN Creatinine Est Cr Clr Drug Dosing Est GFR ( Amer) Est GFR (Non-Af Amer) BUN/Creatinine Ratio Glucose POC Glucose 205 H 240 H 215 H Estimat Average Glucose Hemoglobin A1c Calcium Total Bilirubin AST ALT Alkaline Phosphatase C-Reactive Protein Total Protein Albumin Globulin Albumin/Globulin Ratio Diagnostic Findings 11/18/21 blood cultures + MSSA wound cx from LUE AV fistula - MSSA PG Care Time/CCT Total # of Minutes Spent Total Time Spent with Patient: Total time spent is greater than 50% in coordination of care (as documented) at patient's floor/unit and/or counseling patient: Coding Level of Care Code 92515 Subseq Hosp Care Lvl 3 Diagnoses Dialysis AV fistula infection T82.7XXA Bacteremia R78.81 HTN (hypertension) I10 DM type 1 (diabetes mellitus, type 1) E10.9 Mass of left thigh R22.42 GERD (gastroesophageal reflux disease) K21.9 Kidney transplant failure and rejection T86.12; T86.11 Back pain M54.9 Tobacco dependence F17.200 Diastolic dysfunction I51.89 Pulmonary HTN I27.20 ESRD (end stage renal disease) on dialysis N18.6; Z99.2
[2021-11-21] MEDS: hydrALAZINE HCL 25 MG TAB PO SCH (20:06)
[2021-11-22] MEDS: ACETAMINOPHEN 325 MG TAB PO PRN (03:45)
[2021-11-22] MEDS: HYDROmorphone INJ 1 MG/ML SYRINGE IV PRN ×2 (03:59→07:52)
[2021-11-22] MEDS: DEXTROSE 50% 50 ML SYRINGE IV PRN (05:42)
[2021-11-22] MEDS: cefTRIAXone SODIUM 2,000 MG in DEXTROSE 5% 50 ML IV SCH (07:30)
[2021-11-22] MEDS: SEVELAMER HCL 800 MG TABLET PO SCH ×3 (07:32→17:00)
[2021-11-22] MEDS: amLODIPine BESYLATE 5 MG TAB PO SCH (07:33)
[2021-11-22] MEDS: cloNIDine HCL 0.3 MG TAB PO SCH ×2 (07:34→20:28)
[2021-11-22] MEDS: PANTOprazole 40 MG TAB PO SCH (07:34)
[2021-11-22] MEDS: LOSARTAN POTASSIUM 50 MG TAB PO SCH (07:35)
[2021-11-22] MEDS: hydrALAZINE HCL 25 MG TAB PO SCH (07:35)
[2021-11-22] MEDS: NICOTINE 14 MG/24 HR PATCH TD SCH (07:36)
[2021-11-22] MEDS ORDERED: hydrALAZINE HCL 25 MG TAB PO ONE (09:00)
[2021-11-22] MEDS: INSULIN ASPART PER UNIT SC SCH ×5 (09:02→21:43)
[2021-11-22] MEDS: METOPROLOL TARTRATE 25 MG TAB PO SCH ×2 (09:02→20:29)
--- NOTE | 2021-11-22 11:03 | Orthopedic Consultation ---
Date of Consultation November 22, 2021 Assessment & Plan (1) Back pain: MRI performed lumbar spine does not demonstrate any evidence of gross neural compression or infection. However in light of his health history and episode of bacteremia if he continues to have back pain in the future follow-up MRI may be warranted. He is at high risk for discitis. History of Present Illness Reason for Consultation: Back pain Attending Physician: Ketan Del Castillo History of Present Illness This is a 26-year-old male who presents to the hospital with bacteremia and complaints of low back pain. This morning he states his symptoms have improved regarding his back pain. He denies any leg pain numbness or tingling. Allergies Allergy/AdvReac Type Severity Reaction Status Date / Time baclofen Allergy Unknown HIVES Verified 04/16/20 10:59 Iodinated Contrast Media Allergy Unknown RASH Verified 04/16/20 10:59 Sulfa (Sulfonamide Allergy Unknown RASH Verified 04/16/20 10:59 Antibiotics) Home Medications Medication Instructions Recorded Confirmed Type amlodipine 10 mg tablet 10 mg PO DAILY #90 tab 09/13/19 04/16/20 Rx blood sugar diagnostic (OneTouch #300 ea 09/13/19 04/16/20 Rx Ultra Blue Test Strip) calcium acetate(phosphat bind) 667 667 mg PO TID #270 cap 09/13/19 04/16/20 Rx mg capsule carvedilol 25 mg tablet 50 mg PO BID #360 tab 09/13/19 04/16/20 Rx cholecalciferol (vitamin D3) 1,250 1,250 mcg PO WEEKLY #12 cap 09/13/19 04/16/20 Rx mcg (50,000 unit) capsule cinacalcet 30 mg tablet (Sensipar) 30 mg PO DAILY #90 tab 09/13/19 04/16/20 Rx lancets 28 gauge (FreeStyle #300 ea 09/13/19 04/16/20 Rx Lancets) omeprazole 40 mg capsule,delayed 40 mg PO DAILY PRN cap 09/28/19 04/16/20 History release hydralazine 100 mg tablet 100 mg PO BID #180 tab 12/24/19 04/16/20 Rx clonidine 0.3 mg/24 hr weekly 1 patch TOPICAL .weekly #4 ea 11/04/20 11/04/20 Rx transdermal patch insulin aspart U-100 100 unit/mL See Rx Instructions SQ .COMPLEX 05/27/21 Rx (3 mL) subcutaneous pen (Novolog #15 ml Flexpen U-100 Insulin aspart) Patient History Medical History At high risk for hyperkalemia frequent hyperkalemia; 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 Grandmother No problems noted. Mother Depression Anxiety Grandfather (Maternal) Heart disease Hypertension Myocardial infarction Grandmother (Maternal) Hypertension Grandfather (Paternal) Kidney disease Denies family history of Ovarian cancer Prostate cancer Lung cancer Colorectal cancer Social History Smoking Status: Current every day smoker Tobacco Type: Cigarettes Age Started Using Tobacco: 15; packs per day: 0.50; Cigarettes Per Day: 1 pack every 2- 2.5 days; Second Hand Exposure: No; Do You Dip or Chew Tobacco: No; Tobacco Cessation Education Requested by Patient: No Hx Alcohol Use: No Hx Substance Use: No (pt denies) Preferred Language: Nauruan Communication Ability: Effective Special Delivery Mail Carrier Required: No Beliefs That Will Affect Care: None marital status: Single Current Living Situation: Other Current Living Situation Comment: girlfriend Other Information That Helps Us Care for You: No Feels Safe at Home: Yes Safety Concerns: Feels Safe At This Time Childhood Exposure to Second-Hand Smoke: Yes Seatbelt Use: never Sunscreen Use: No Assistive Devices: None Physical Exam Physical Exam: On exam he is somewhat lethargic but cooperative. He demonstrates no gross neural deficit. Results & Data ([facility]) Vital Signs (Past 12 Hours) Vital Signs Temp Pulse Pulse Resp BP Pulse Ox 11/22/21 08:00 62 11/22/21 07:59 36.8 C 61 10 L 178/107 H 96 11/22/21 03:25 36.6 C 60 16 181/118 H 98 11/21/21 23:59 67 11/21/21 23:11 36.8 C 60 20 175/114 H 96
--- NOTE | 2021-11-22 11:06 | Nephrology Progress Note ---
Date of Service November 22, 2021 Assessment & Plan (1) CKD (chronic kidney disease) stage V requiring chronic dialysis: Plan: ESRD on MWF HD w/ frequent hyperkalemia, though K today acceptable. - Had temporary line 11/20 - HD with 2.5 lit UF on 11/20 - Next HD on Mobay. - Daily bmp, CBC Chronically raised BP 2/ non compliance with medication and Tx - Better controlled with increase clonidine to 0.3 mg BID and adding amlodipine, - He will need hydralazine/ alpha albert as he has brittle htpertension - Volume optimization would helpe. (2) Dialysis AV fistula infection: Plan: hAD AV fistula excised - Vascular on board (3) Bacteremia: Plan: GPC clusters; adjacent to AVF likely source -f/u [facility] cultures from 11/18 -Renally dose abx >>>MRI ruled out spinal abscess, TTE unrevealing for vegetations , would need BINH. (4) Mass of left thigh: Plan: painful and limiting ambulation. -f/u surgical recs; liposarcoma on differential; at higher malignancy risk given txplt hx; PT eval Admission and Anticipated Discharge Date Admission Date: November 18, 2021 Subjective In better mood today, Pain the fistula arm and LUE better. Not in Distress. Has agreed for lab work. Review of Systems Review of Systems: All systems reviewed & are unremarkable except as noted in Subjective Physical Exam Physical Exam: Constitutional:L well developed, we ll nourished,not i n distress, Eyes: EOM intact bilater ally ENMT: Ears: no external ear abnormality N ose: no external n ose abnormality M outh: moist mucou s membranes Neck: no nuchal rigidity Respiratory: normal respiratory effort Auscultat ion: + diminished lung sounds Cardiovascular:L Rate/Rhythm: regul ar rate and regula r rhythm Extremit ies:no bleeding/di schareg at the kristopher gical site. Gastrointestinal ( Abdomen): Inspection/Auscult ation: normal coral l sounds Percussi on/Palpation: abdo men soft; abdomen nontender Musculoskeletal: Extremities: stren gth 5/5 throughout Skin: no rashes, warm an d dry Neurologic: barraza, fluent speech , no tremor Psychiatric: Orientation: alert and oriented x 3 Results & Data ([facility]) Vital Signs (Past 12 Hours) Vital Signs Temp Pulse Pulse Resp BP Pulse Ox 11/22/21 08:00 62 11/22/21 07:59 36.8 C 61 10 L 178/107 H 96 11/22/21 03:25 36.6 C 60 16 181/118 H 98 11/21/21 23:59 67 11/21/21 23:11 36.8 C 60 20 175/114 H 96
[2021-11-22] MEDS ORDERED: INSULIN DETEMIR FLEXPEN/FLEX TOUCH 100 UNITS/ML 3ML SC ONE (12:00)
--- NOTE | 2021-11-22 12:09 | Pharmacy Report ---
Pharmacy Glycemic Short Note 2 - Date of Service November 22, 2021 - Glycemic Short BSG Results (Last 24 hours): 11/21/21 11/21/21 11/21/21 13:13 13:52 14:14 Glucose 507 H* POC Glucose 564 H* 489 H* 11/21/21 11/21/21 11/21/21 15:38 16:47 17:49 Glucose POC Glucose 334 H* 205 H 240 H 11/21/21 11/21/21 11/21/21 18:38 19:51 20:52 Glucose POC Glucose 215 H 204 H 146 H 11/21/21 11/21/21 11/21/21 21:36 22:57 23:37 Glucose POC Glucose 157 H 183 H 186 H 11/22/21 11/22/21 11/22/21 00:53 02:09 03:21 Glucose POC Glucose 151 H 134 H 104 H 11/22/21 11/22/21 11/22/21 04:05 05:18 06:02 Glucose POC Glucose 100 H 99 132 H 11/22/21 11/22/21 11/22/21 07:08 08:06 10:22 Glucose POC Glucose 140 H 151 H 142 H OUTPATIENT ANTIDIABETIC REGIMEN: * Clarifying basal regimen * Per Dr. Frias - patient's family reported he was not on basal but thinks he is type 1 and patient reported the same. Dr. Frias called [facility] who had same info. PCP office is closed at this time. Dr. Frias to continue to inquire and will follow up. * Novolog * Correction factor: 50 mg/dL/unit, starting above 200 mg/dL * Carb ratio: 15 g CHO/unit * HbA1c outdated, but not repeated given ESRD * HbA1c somewhat unreliable in ESRD patients d/t interactions between the A1c analyzing technique and high levels of urea in ESRD, reduced RBC life span, iron deficiency anemia, and EPO administration. HbA1c > 7.5% in ESRD patient may overestimate the extent of hyperglycemia in ESRD patients. ASSESSMENT: 11/22: * Patient started on insulin drip yesterday for elevated BSGs, continued this AM now running at 0.9 units/hr * Discussed with provider, will trial SQ insulin again to help eliminate frequent BSG checks * Will give 10 units basal x 1 with insulin drip and likely d/c drip with a couple hours overlap * Patient NPO again tonight for perm cath placement 11/21: * BSG of 549 mg/dL this morning, trialed Lantus/Novolog SC only at that time but lunchtime BSG of 510 mg/dL * Restart insulin infusion - unsure of baseline insulin needs, insulin gtt remains safest option to bring BSGs to normal range * Ongoing concern of non-compliance with diet orders/snacking * HD yesterday * Continues on IV Rocephin daily 11/20: * BSGs erratic over last 24hr (some of which are post prandial given non- adherence to diet orders). Patient went to OR yesterday afternoon and received 10units SQ Novolog for a post prandial BSG. BSGs trended down to 113 at bedtime. Received a total of 3 units basal and 13 bolus yesterday. * Has been NPO since yesterday -- Type 1 diet ordered this afternoon. Continues on antibiotics. * Increased to 4units basal this AM. Transitioned to Levemir in attempt to minimize patient reported overnight lows. * Prandial insulin goal BSG adjusted to 110-160mg/dL. No other changes to Novolog parameters at this point. May require tightening if BSGs uncontrolled once consistent diet. 11/19: * BSGs well controlled with insulin infusion. Infusion running at low rates, 0.5unit/hr this AM, and was quite consistent at that rate. Patient is not adhering to diet orders and bringing in outside food/drink which is interfering with management (hospitalist aware). Patient with (+) blood cultures, and receiving iHD which will additionally impact glycemic management. * D/w hospitalist this AM -- plan to convert to SQ. Dr. Frias confirmed patient is not on basal insulin @ home as he hasn't tolerated in past due to low BSGs. However, would like to initiate while admitted given DM1. * Insulin gtt turned off this AM. Lantus 3 units SQ X 1 as drip shut off. Very conservative basal titration -- starting at ~ 0.2unit/kg/day divided. Will plan for an HS scale tonight. * Novolog parameters to start based upon home regimen. CF/CR 50/15 (correction for BSG >200mg/dL). 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 Will hopefully be able to attempt transition tomorrow AM after further clarification regarding outpatient regimen. PLAN FOR INPATIENT GLYCEMIC CONTROL: * Insulin infusion * Levemir 10 units x 1 * Bolus insulin * Novolog ACHS 110-140 * CF 50 / CR 20
[2021-11-22] MEDS: INSULIN REGULAR 250 UNITS in SODIUM CHLORIDE 0.9% 247.5 ML IV SCH (16:54)
[2021-11-22] MEDS: hydrALAZINE TAB 50 MG TAB PO SCH (20:28)
[2021-11-22] MEDS ORDERED: INSULIN ASPART PER UNIT SC SCH (21:00)
--- NOTE | 2021-11-22 22:12 | Hospitalist Progress Note ---
Date of Service November 22, 2021 Assessment & Plan (1) Dialysis AV fistula infection: Plan: POD #3 s/p removal of LUE AV fistula by Dr Blanco. Culture with MSSA. Blood cultures from admission positive for MSSA as well. Currently on rocephin 2gm IV daily. Ideally we switch to IV ancef - will do so; renally adjust. Pain control w/ dilaudid prn. Temporary R IJ dialysis catheter placed 2 days ago. To have tunneled permanent HD catheter placement next week once blood is sterile. Blood cx's from 11/21 thus far negative. Follow for sterility. (2) Bacteremia: Plan: 2nd to MSSA. Source - LUE AV fistula infection. Repeat blood cx's 11/21 thus far negative. Echo completed - AV and PV not well seen, TV not well seen. No obvious vegetations, but he may need BINH to r/o SBE. Initially the lumbar spine MRI was read as T12/L1 early discitis by [facility]- radiologist. However, our radiologist at [facility] interpreted the study as negative for discitis. Seen by Dr Acevedo today - ortho-spine. AT this time he does not feel either that there is active infection in the spine. Change rocephin to IV ancef renally dosed. [facility] consult to be requested. Again - given that we did not see his valves well on 2D echo - strongly consider BINH. (3) HTN (hypertension): Plan: SEVERELY uncontrolled but slowly improving. Increased his clonidine to 0.3mg BID. Increased his amlodipine to 10mg qam. Continue losartan 100mg daily. Increased his metoprolol to 50mg BID but HRs were, at times, low 50s or lower. I cut back the metoprolol today to 25mg BID and increased his hydralazine to 50mg BID. alpha albert stopped earlier in the stay. trend the BPs. (4) DM type 1 (diabetes mellitus, type 1): Plan: Pharmacy glycemic team is managing. Appreciate their assistance. A1C = 9.3% (2020). A1C this admission = 7.1%. Uncertain, given his ACD from ESRD, how accurate the a1c is. I corresponded with pharmacy - insulin drip to be stopped this am - transition back to SC regimen. (5) Mass of left thigh: Plan: Seen by gen surg - nothing to do at this time. Outpatient f/u with future removal if desired by patient. Certainly not urgent. (6) GERD (gastroesophageal reflux disease): Plan: PPI daily (7) Kidney transplant failure and rejection: Plan: now on HD - M/W/F. Appreciate [facility] assistance. (8) Back pain: Plan: First 2 days of this stay he c/o pain in the lower t-spine/upper l-spine region. He reported acute onset x 2-3 days prior to admission. Pain now resolved today. He does have some mild, intermittent, chronic low back pain at baseline. MRI lumbar spine official radiology reading by [facility] radiologist - no diskitis seen. No epidural abscess. Dr Acevedo saw in consult today - he concurs with the radiologist here, no diskitis. If back pain returns he advises another MRI as he is at high risk of developing diskitis. 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 etiology? O2 sats are adequate Denies any pulmonary symptoms with activity (12) ESRD (end stage renal disease) on dialysis: Plan: appreciate [facility] assistance schedule - M/W/F Plan: significant other updated at bedside today grand-parents & brother updated at bedside yesterday progressing nicely tunneled HD catheter insertion -- timing uncertain, need negative blood cultures first Admission and Anticipated Discharge Date Admission Date: November 18, 2021 Subjective patient sitting in chair during the visit his significant other was present during the visit telemetry normal overnight except for intermittent changes seen in his P axis (upward mostly, with some inversion at times) he states his LUE pain is largely resolved mild pain over R IJ dialysis catheter site (pulls on arellano at times) he denies any dyspnea no further fevers/chills appetite improving he asks about when he can return to work; 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 [employer] Review of Systems Review of Systems: gen - no fevers or chills; appetite improved; fatigue resolved cv - no cp, no orthopnea pulm - no dyspnea GI - no abd pain, no diarrhea Physical Exam Physical Exam: gen - looks MUCH better today; awake/alert; sitting in chair neck - right IJ dialysis catheter clean, no bleeding mouth - MMM, no thrush plaques heart - RRR, s1 s2, 2/6 [facility] LSB lungs - CTA b/l abd - soft NT ND BS+ ext - no ankle edema, pulses 2+ b/l skin - dressings intact LUE; no drainage; minimal blood on dressings spine - NO TENDERNESS today over the thoraco-lumbar spine junction or any location along the spine Results & Data Results & Data ([facility]) Vital Signs (Past 12 Hours) Vital Signs Temp Pulse Resp BP Pulse Ox 11/22/21 15:24 36.8 C 64 14 180/113 H 100 11/22/21 12:00 36.8 C 66 13 144/99 H 98 11/22/21 11:00 36.8 C 63 18 178/107 H 99 Laboratory Results Laboratory Results - last 24 hr 11/21/21 11/21/21 11/22/21 22:57 23:37 00:53 POC Glucose 183 H 186 H 151 H 11/22/21 11/22/21 11/22/21 02:09 03:21 04:05 POC Glucose 134 H 104 H 100 H 11/22/21 11/22/21 11/22/21 05:18 06:02 07:08 POC Glucose 99 132 H 140 H 11/22/21 11/22/21 11/22/21 08:06 10:22 12:12 POC Glucose 151 H 142 H 129 H 11/22/21 11/22/21 11/22/21 14:13 15:15 15:19 POC Glucose 274 H 291 H 226 H 11/22/21 11/22/21 11/22/21 16:33 20:44 21:20 POC Glucose 122 H 36 L* 54 L* 11/22/21 11/22/21 21:44 21:59 POC Glucose 62 L* 49 L* Diagnostic Findings blood cultures from 11/21 thus far negative PG Care Time/CCT Total # of Minutes Spent Total Time Spent with Patient: Total time spent is greater than 50% in coordination of care (as documented) at patient's floor/unit and/or counseling patient: Coding Level of Care Code 44235 Subseq Hosp Care Lvl 3 Diagnoses Dialysis AV fistula infection T82.7XXA Bacteremia R78.81 HTN (hypertension) I10 DM type 1 (diabetes mellitus, type 1) E10.9 Mass of left thigh R22.42 GERD (gastroesophageal reflux disease) K21.9 Kidney transplant failure and rejection T86.12; T86.11 Back pain M54.9 Tobacco dependence F17.200 Diastolic dysfunction I51.89 Pulmonary HTN I27.20 ESRD (end stage renal disease) on dialysis N18.6; Z99.2
[2021-11-23] MEDS: INSULIN ASPART PER UNIT SC SCH ×5 (00:28→20:57)
[2021-11-23] MEDS ORDERED: SODIUM CHLORIDE 0.9% 1000ML 1,000 ML IV PRN ×2 (07:00→09:55)
--- NOTE | 2021-11-23 08:52 | History & Physical Bridge Note ---
Date of Service November 23, 2021 History & Physical Bridge Note Patient for insertion of permcath today. Blood cultures post resection of fistula are neg. I have discussed the risks options and benefits of the procedure with the patient. The patient understands the risks options and benefits and agrees to the procedure. I have examined the patient, reviewed the History & Physical and in the interval since the performance of the History & Physical I have noted the following changes of clinical significance: no changes noted
--- NOTE | 2021-11-23 09:31 | Anesthesiology Consultation ---
Date of Service November 23, 2021 Assessment & Plan (1) Encounter for pre-operative examination: Chart Review Chart Review: Acceptable Risk for Surgery History Surgery Operation Date: 11/19/21 09:40 Proposed Procedures p Left Upper Extremity Arteriovenous Fistula Revision - Jeronimo Blanco MD Operation Date: 11/20/21 12:00 Proposed Procedures p Left Upper Extremity Arteriovenous Fistula Revision - Jeronimo Blanco MD Operation Date: 11/20/21 15:15 Proposed Procedures p Insertion Temporary Dialysis Catheter - Jeronimo Blanco MD Operation Date: 11/23/21 10:20 Proposed Procedures p Perm Catheter Insertion - Jeronimo Blanco MD Height/Weight Height: 5 ft 2 in Weight: 62.3 kg Allergies Allergy/AdvReac Type Severity Reaction Status Date / Time baclofen Allergy Unknown HIVES Verified 04/16/20 10:59 Iodinated Contrast Media Allergy Unknown RASH Verified 04/16/20 10:59 Sulfa (Sulfonamide Allergy Unknown RASH Verified 04/16/20 10:59 Antibiotics) Medications Home Medications Medication Instructions Recorded Confirmed Last Taken amlodipine 10 mg tablet 10 mg PO DAILY #90 tab 09/13/19 04/16/20 Unknown blood sugar diagnostic (OneTouch #300 ea 09/13/19 04/16/20 Unknown Ultra Blue Test Strip) calcium acetate(phosphat bind) 667 667 mg PO TID #270 cap 09/13/19 04/16/20 Unknown mg capsule carvedilol 25 mg tablet 50 mg PO BID #360 tab 09/13/19 04/16/20 Unknown cholecalciferol (vitamin D3) 1,250 1,250 mcg PO WEEKLY #12 cap 09/13/19 04/16/20 Unknown mcg (50,000 unit) capsule cinacalcet 30 mg tablet (Sensipar) 30 mg PO DAILY #90 tab 09/13/19 04/16/20 Unknown lancets 28 gauge (FreeStyle #300 ea 09/13/19 04/16/20 Unknown Lancets) omeprazole 40 mg capsule,delayed 40 mg PO DAILY PRN cap 09/28/19 04/16/20 Unk nown release hydralazine 100 mg tablet 100 mg PO BID #180 tab 12/24/19 04/16/20 Unknown clonidine 0.3 mg/24 hr weekly 1 patch TOPICAL .weekly #4 ea 11/04/20 11/04/20 Unknown transdermal patch insulin aspart U-100 100 unit/mL See Rx Instructions SQ .COMPLEX 05/27/21 Unknown (3 mL) subcutaneous pen (Novolog #15 ml Flexpen U-100 Insulin aspart) Active Medications Generic Name Dose Route Start Last Admin Trade Name Freq PRN Reason Stop Dose Admin Acetaminophen 650 mg 11/18/21 16:38 11/22/21 03:45 Acetaminophen 325 Mg Tab PO 12/18/21 16:37 650 mg Q4H PRN Administration Pain or Fever Amlodipine Besylate 10 mg 11/21/21 09:00 11/22/21 07:33 Amlodipine Besylate 5 Mg Tab PO 12/21/21 08:59 10 mg QAM NICOLETTE Administration Clonidine HCl 0.3 mg 11/20/21 21:00 11/22/21 20:28 Clonidine Hcl 0.3 Mg Tab PO 12/20/21 20:59 0.3 mg BID NICOLETTE Administration Dextrose 25 - 50 ml 11/18/21 17:15 11/22/21 05:42 Dextrose 50% 50 Ml Syringe IV 12/18/21 17:14 50 ml UD PRN Administration Hypoglycemia Protocol Protocol Hydralazine HCl 50 mg 11/22/21 21:00 11/22/21 20:28 Hydralazine Tab 50 Mg Tab PO 12/22/21 20:59 50 mg BID NICOLETTE Administration Insulin Aspart 0 units 11/23/21 00:00 11/23/21 05:47 Insulin Aspart Per Unit SC 12/23/21 00:00 Not Given Q6 NICOLETTE Protocol Losartan Potassium 100 mg 11/19/21 09:00 11/22/21 07:35 Losartan Potassium 50 Mg Tab PO 12/19/21 08:59 100 mg QAM NICOLETTE Administration Metoprolol Tartrate 25 mg 11/22/21 09:00 11/22/21 20:29 Metoprolol Tartrate 25 Mg Tab PO 12/22/21 08:59 25 mg BID NICOLETTE Administration Miscellaneous 1 ea 11/21/21 21:00 11/22/21 20:29 Remove Nicoderm Patch N/A 12/21/21 20:59 Not Given QPM NICOLETTE Nicotine 14 mg 11/21/21 09:00 11/22/21 07:36 Nicotine 14 Mg/24 Hr Patch TD 12/21/21 08:59 Not Given QAM NICOLETTE Pantoprazole Sodium 40 mg 11/19/21 09:00 11/22/21 07:34 Pantoprazole 40 Mg Tab PO 12/19/21 08:59 40 mg DAILY NICOLETTE Administration Sevelamer HCl 800 mg 11/18/21 17:00 11/22/21 17:00 Sevelamer Hcl 800 Mg Tablet PO 12/18/21 16:59 800 mg TIDM NICOLETTE Administration NPO Date Last Intake of Fluids: 11/19/21 Time Last Intake of Fluids: 22:00 Date Last Intake of Solids: 11/19/21 Time Last Intake of Solids: 22:00 Last Intake of Solids Comment: Dr. Blanco and Dr. 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 Grandmother No problems noted. Mother Depression Anxiety Grandfather (Maternal) Heart disease Hypertension Myocardial infarction Grandmother (Maternal) Hypertension Grandfather (Paternal) Kidney disease Denies family history of Ovarian cancer Prostate cancer Lung cancer Colorectal cancer Past Surgical History Surgical History History of circumcision History of laparoscopy History of nephrectomy S/P kidney transplant "x2, most recently in 2012" Status post biopsy of kidney Social History Smoking Status: Current every day smoker tobacco type: cigarettes Smoking cigarettes per day: 1 pack every 2- 2.5 days Do You Dip or Chew Tobacco: No Hx Alcohol Use: No Hx Substance Use: No (pt denies) substance use type: does not use Physical Exam Vital Signs Last Vital Signs Temp 36.5 C 11/23/21 07:56 Pulse 58 L 11/23/21 07:56 Resp 14 11/23/21 07:56 BP 168/95 H 11/23/21 07:56 Pulse Ox 97 11/23/21 07:56 Testing Laboratory Results 11/21/21 13:52 11/21/21 13:52 PT 13.6 Seconds (9.0-12.0) H 11/18/21 11:45 INR 1.3 (0.9-1.1) H 11/18/21 11:45 APTT 44.7 Seconds (21.0-31.0) H 11/18/21 11:45 Hemoglobin A1c 7.1 % (4.5-5.6) H 11/21/21 13:52 Blood Type O Positive 11/19/21 14:48 Antibody Screen POSITIVE A 11/19/21 14:48 11/21/21 13:52 Aerobic Blood Culture - Preliminary Blood No growth in Aerobic bottle after 24 hours. Anaerobic Blood Culture - Preliminary No growth in Anaerobic bottle after 24 hours. 11/21/21 13:52 Aerobic Blood Culture - Preliminary Blood No growth in Aerobic bottle after 24 hours. Anaerobic Blood Culture - Preliminary No growth in Anaerobic bottle after 24 hours. 11/18/21 11:56 Aerobic Blood Culture - Preliminary Blood Staphylococcus aureus Anaerobic Blood Culture - Preliminary No growth in Anaerobic bottle after 48 hours. 11/19/21 15:55 Gram Stain - Final Arm,Left Aerobic and Anaerobic Culture - Preliminary Staphylococcus aureus 11/18/21 11:45 Aerobic Blood Culture - Preliminary Blood Staphylococcus aureus Anaerobic Blood Culture - Preliminary No growth in Anaerobic bottle after 48 hours. 11/23/21 11/23/21 11/23/21 07:23 05:42 03:38 POC Glucose 210 H 155 H 157 H 11/23/21 11/22/21 11/22/21 00:11 22:30 22:15 POC Glucose 91 84 69 L* 11/22/21 11/22/21 21:59 21:44 POC Glucose 49 L* 62 L*
[2021-11-23] MEDS ORDERED: LIDOCAINE 2% 2 ML VIAL/AMP(20MG/ML) INFIL ONE ×2 (09:32→09:35)
[2021-11-23] MEDS ORDERED: PROPOFOL IV EMULSION 10 MG/ML 20 ML VIAL IV ONE ×4 (09:32→10:54)
[2021-11-23] MEDS ORDERED: MIDAZOLAM HCL 1 MG/ML 2ML VIAL ONE (09:33)
[2021-11-23] MEDS ORDERED: fentaNYL citrate 100 MCG/2 ML VIAL ONE (09:34)
[2021-11-23] MEDS ORDERED: fentaNYL citrate 100 MCG/2 ML VIAL IV PRN (09:40)
[2021-11-23] MEDS ORDERED: ATROPINE SULFATE 0.1 MG/ML 10ML SYR IV PRN (09:40)
[2021-11-23] MEDS ORDERED: ONDANSETRON INJ 2 MG/ML 2 ML VIAL IV PRN (09:40)
[2021-11-23] MEDS ORDERED: LABETALOL HCL IV 5 MG/ML 20ML IV PRN (09:40)
[2021-11-23] MEDS: SODIUM CHLORIDE 0.9% 1000ML 1,000 ML IV SCH (09:45)
[2021-11-23] MEDS ORDERED: LIDOCAINE 1% LOCAL 20 ML VIAL ONE (09:54)
[2021-11-23] MEDS ORDERED: HEPARIN SOD (PORCINE) 5,000 UNITS/ML VIAL ONE (09:54)
[2021-11-23] MEDS ORDERED: KETAMINE 50 MG/5 ML SYRINGE ONE (10:20)
[2021-11-23] MEDS ORDERED: ONDANSETRON INJ 2 MG/ML 2 ML VIAL ONE (10:28)
[2021-11-23] MEDS ORDERED: LIDOCAINE 1% LOCAL 20 ML VIAL INFIL ONE (10:43)
--- NOTE | 2021-11-23 10:51 | Operative Report ---
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 Operation Date: 11/20/21 12:00 <No data on this case meets the specified criteria> Operation Date: 11/20/21 15:15 Pre-Op Diagnosis: End Stage Renal Disease. Post-Op Diagnosis: End Stage Renal Disease. Operation Date: 11/23/21 10:20 Pre-Op Diagnosis: End Stage Renal Disease Post-Op Diagnosis: End Stage Renal Disease I identified the patient and participated in the time-out.: Yes Procedure Operation Date: 11/19/21 09:40 Actual Procedures p Left Upper Extremity Arteriovenous Fistula Removal.(Left) - Jeronimo Blanco MD Operation Date: 11/20/21 12:00 <No data on this case meets the specified criteria> Operation Date: 11/20/21 15:15 Actual Procedures p Insertion Temporary Dialysis Catheter, Right External Jugular Approach, Ultrasound Localization of Right External Jugular Vein, Fluoroscopy for Positioning(Right) - Jeronimo Blanco MD Operation Date: 11/23/21 10:20 Actual Procedures p Insertion of Perm Catheter Insertion, Left Jugular Approach, Ultrasound Localization of Left Internal Jugular Vein, Fluoroscopy for Positioning, Removal of Temporary Dialysis Catheter(Left) - Jeronimo Blanco MD Surgeon Jeronimo Blanco MD Inspector [employer] And Processes none Estimated Blood Loss 5 Findings Consistent with Post-Op Diagnosis Specimens none Anesthesia Type MAC Complications none Disposition Accompanied Patient To Recovery: No Disposition: Recovery Room Indications This is a 26-year-old male who had a infected fistula removed from his left arm. He had a temporary dialysis catheter placed. His blood cultures are now negative. Recommendation for PermCath was made. After PermCath is placed we will remove the temporary. I have discussed the risks options and benefits of the procedure with the patient. The patient understands the risks options and benefits and agrees to the procedure. Description of Procedure Patient was taken to the angio suite and placed in the supine position. The left side of the neck and chest wall were prepped and draped in a sterile manner. The patient was identified and a timeout performed. Local anesthesia was then administered to the appropriate areas of the neck and chest wall. Ultrasound was then used to locate the left internal jugular vein. The vein compressed easily, had no filing defects, and was patent. The vein was then punctured under direct ultrasound imaging. A guidewire was then passed centrally under fluoroscopic imaging. A stab wound was then made in the anterior chest wall and a 19 cm permcath was passed from the stab wound on the chest wall to the puncture site on the neck. The puncture site was then dilated till the 14Fr peel away sheath was inserted. The permcath was then inserted through the sheath to a central position in the distal superior vena cava. The peel away sheath was then removed. The catheter was then sutured in place using nylon sutures. The puncture was then closed using a 4-0 Vicryl subcuticular suture. Dermabond was used for a dressing on the puncture site. Both ports aspirated and flushed easily and were then packed with heparin. A sterile dressing was applied to the catheter. The dressings were then removed from the right side. The sutures were removed from the temporary dialysis catheter. The temporary dialysis catheter was removed. Pressure was then applied and adequate hemostasis was obtained. A s terile dressing was then applied. The patient left the operation room in satisfactory condition and tolerated the procedure well. All needle and sponge counts were correct at the end of the procedure. I attest to the content of the Intraoperative Record and any orders documented therein. Any exceptions are noted below.
[2021-11-23] MEDS ORDERED: INSULIN DETEMIR FLEXPEN/FLEX TOUCH 100 UNITS/ML 3ML SC ONE (11:30)
--- NOTE | 2021-11-23 11:36 | Anesthesiology Progress Note ---
Date of Service November 23, 2021 Anesthesia Post Procedure Vital Signs Vital Signs: Temp Pulse Pulse Pulse Resp BP BP 11/23/21 11:15 36.4 C L 64 18 190/93 H 11/23/21 11:05 62 18 191/98 H 11/23/21 10:57 36.3 C L 65 20 191/98 H 11/23/21 09:32 62 20 11/23/21 07:56 36.5 C 58 L 14 168/95 H 11/23/21 03:48 36.8 C 57 L 12 149/97 H 11/22/21 23:13 78 11/22/21 23:08 36.8 C 64 16 159/95 H 11/22/21 15:24 36.8 C 64 14 180/113 H 11/22/21 12:00 36.8 C 66 13 144/99 H Pulse Ox 11/23/21 11:15 96 11/23/21 11:05 96 11/23/21 10:57 99 11/23/21 09:32 100 11/23/21 07:56 97 11/23/21 03:48 99 11/22/21 23:13 11/22/21 23:08 97 11/22/21 15:24 100 11/22/21 12:00 98 Pain Intensity Left Leg: Pain Intensity: 7 Left Arm: Pain Intensity: 7 Right Neck: Pain Intensity: 7 Transfer of Care Handoff Completed per policy Notes Mental Status: alert / awake / arousable Patient Amnestic to Procedure: Yes Nausea / Vomiting: adequately controlled Pain: adequately controlled Airway Patency, RR, SpO2: stable & adequate BP & HR: stable & adequate Hydration State: stable & adequate Anesthetic Complications: no major complications apparent
[2021-11-23] MEDS ORDERED: INSULIN ASPART PER UNIT SC SCH (12:00)
[2021-11-23] MEDS: HYDROmorphone INJ 0.5 MG/0.5 ML SYR IV PRN ×3 (12:02→23:42)
[2021-11-23] MEDS: PANTOprazole 40 MG TAB PO SCH (12:10)
[2021-11-23] MEDS: NICOTINE 14 MG/24 HR PATCH TD SCH ×2 (12:11→12:16)
[2021-11-23] MEDS: SEVELAMER HCL 800 MG TABLET PO SCH ×2 (12:11→18:29)
--- NOTE | 2021-11-23 14:56 | Pharmacy Report ---
Pharmacy Glycemic Short Note 2 - Date of Service November 23, 2021 - Glycemic Short BSG Results (Last 24 hours): 11/22/21 11/22/21 11/22/21 15:15 15:19 16:33 POC Glucose 291 H 226 H 122 H 11/22/21 11/22/21 11/22/21 20:44 21:20 21:44 POC Glucose 36 L* 54 L* 62 L* 11/22/21 11/22/21 11/22/21 21:59 22:15 22:30 POC Glucose 49 L* 69 L* 84 11/23/21 11/23/21 11/23/21 00:11 03:38 05:42 POC Glucose 91 157 H 155 H 11/23/21 11/23/21 11/23/21 07:23 09:33 09:35 POC Glucose 210 H 308 H* 285 H 11/23/21 11/23/21 11:05 11:48 POC Glucose 422 H* 364 H* OUTPATIENT ANTIDIABETIC REGIMEN: * Clarifying basal regimen * Per Dr. Frias - patient's family reported he was not on basal but thinks he is type 1 and patient reported the same. Dr. Frias called [facility] who had same info. PCP office is closed at this time. Dr. Frias to continue to inquire and will follow up. * Novolog * Correction factor: 50 mg/dL/unit, starting above 200 mg/dL * Carb ratio: 15 g CHO/unit * HbA1c outdated, but not repeated given ESRD * HbA1c somewhat unreliable in ESRD patients d/t interactions between the A1c analyzing technique and high levels of urea in ESRD, reduced RBC life span, iron deficiency anemia, and EPO administration. HbA1c > 7.5% in ESRD patient may overestimate the extent of hyperglycemia in ESRD patients. ASSESSMENT: 11/23: * Insulin drip weaned off. BSGs dropped into the 30s last night requiring PO treatment. BSGs continue to be erratic (155-210-364) today. * Reduced dose of Levemir this afternoon, 5 units X 1. Continue to titrate conservatively. Pt received 5 units Novolog SQ in OR today as well for high BSGs. Has been NPO since midnight - diet ordered for dinner tonight. * Given profound lows last night, loosened Novolog parameters for dinner & HS. Breakfast Novolog correction tightened starting tomorrow AM. Overnight checks tonight. 11/22: * Patient started on insulin drip yesterday for elevated BSGs, continued this AM now running at 0.9 units/hr * Discussed with provider, will trial SQ insulin again to help eliminate frequent BSG checks * Will give 10 units basal x 1 with insulin drip and likely d/c drip with a couple hours overlap * Patient NPO again tonight for perm cath placement 11/21: * BSG of 549 mg/dL this morning, trialed Lantus/Novolog SC only at that time but lunchtime BSG of 510 mg/dL * Restart insulin infusion - unsure of baseline insulin needs, insulin gtt remains safest option to bring BSGs to normal range * Ongoing concern of non-compliance with diet orders/snacking * HD yesterday * Continues on IV Rocephin daily 11/20: * BSGs erratic over last 24hr (some of which are post prandial given non- adherence to diet orders). Patient went to OR yesterday afternoon and received 10units SQ Novolog for a post prandial BSG. BSGs trended down to 113 at bedtime. Received a total of 3 units basal and 13 bolus yesterday. * Has been NPO since yesterday -- Type 1 diet ordered this afternoon. Continues on antibiotics. * Increased to 4units basal this AM. Transitioned to Levemir in attempt to minimize patient reported overnight lows. * Prandial insulin goal BSG adjusted to 110-160mg/dL. No other changes to Novolog parameters at this point. May require tightening if BSGs uncontrolled once consistent diet. 11/19: * BSGs well controlled with insulin infusion. Infusion running at low rates, 0.5unit/hr this AM, and was quite consistent at that rate. Patient is not adhering to diet orders and bringing in outside food/drink which is interfering with management (hospitalist aware). Patient with (+) blood cultures, and receiving iHD which will additionally impact glycemic management. * D/w hospitalist this AM -- plan to convert to SQ. Dr. Frias confirmed patient is not on basal insulin @ home as he hasn't tolerated in past due to low BSGs. However, would like to initiate while admitted given DM1. * Insulin gtt turned off this AM. Lantus 3 units SQ X 1 as drip shut off. Very conservative basal titration -- starting at ~ 0.2unit/kg/day divided. Will plan for an HS scale tonight. * Novolog parameters to start based upon home regimen. CF/CR 50/15 (correction for BSG >200mg/dL). 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 Will hopefully be able to attempt transition tomorrow AM after further clarification regarding outpatient regimen. PLAN FOR INPATIENT GLYCEMIC CONTROL: * Insulin infusion * Levemir 5 units x 1 * Bolus insulin * Novolog ACHS * AM: CF 40 / CR 15 * 1130: CF 50 /CR 15 * 1630: CF 50 / CR 20 * HS: CF 50
[2021-11-23] MEDS: METOPROLOL TARTRATE 25 MG TAB PO SCH ×2 (18:26→20:49)
[2021-11-23] MEDS: cloNIDine HCL 0.3 MG TAB PO SCH ×2 (18:27→20:48)
[2021-11-23] MEDS: hydrALAZINE TAB 50 MG TAB PO SCH ×2 (18:27→20:49)
[2021-11-23] MEDS: amLODIPine BESYLATE 5 MG TAB PO SCH (18:28)
[2021-11-23] MEDS: LOSARTAN POTASSIUM 50 MG TAB PO SCH (18:28)
[2021-11-23] MEDS: ceFAZolin 1000MG 1,000 MG/7.5 ML SYR IV SCH (18:39)
--- NOTE | 2021-11-23 19:13 | Hospitalist Progress Note ---
Date of Service November 23, 2021 Assessment & Plan (1) Dialysis AV fistula infection: Plan: POD #4 s/p removal of LUE AV fistula by Dr Blanco. Intra-op Culture with MSSA. Blood cultures from admission positive for MSSA as well. Previously on rocephin 2gm IV daily. Changed to IV ancef once daily today. Pain control w/ dilaudid prn. Temporary R IJ dialysis catheter now removed. Tunneled HD catheter placed today by Dr Blanco. Blood cx's from 11/21 remain negative. Follow for sterility. (2) Bacteremia: Plan: 2nd to MSSA. Source - LUE AV fistula infection. Repeat blood cx's 11/21 remain negative. Echo completed - AV and PV not well seen, TV not well seen. No obvious vegetations, but he may need BINH to r/o SBE. I asked Dr Rodrigez from [facility] to see him about pursuing the BINH this week. Patient declined today to have the BINH. Dr Rodrigez to revisit him tomorrow to see if he has changed his mind. Initially the lumbar spine MRI was read as T12/L1 early discitis by [facility]-radio logist. However, our radiologist at [facility] interpreted the study as negative for discitis. Seen by Dr Acevedo this weekend - he, too, does not feel that there is active infection in the spine. Cont IV ancef renally dosed. [facility] ID consult requested. Again - given that we did not see his valves well on 2D echo - BINH requested but patient declining it. At minimum needs 2 weeks of IV antibiotics but would need longer course if SBE is seen in the heart if he allows us to perform BINH. (3) HTN (hypertension): Plan: SEVERELY uncontrolled since admission but improving. Increased his clonidine to 0.3mg BID. Increased his amlodipine to 10mg qam. Continue losartan 100mg daily. Increased his metoprolol to 50mg BID but HRs were, at times, low 50s or lower thus backed down to 25mg BID. Hydralazine restarted - titrated to 50mg BID. Alpha albert - at advising of his meeting facilitator - was stopped. Cont to trend the BPs. (4) DM type 1 (diabetes mellitus, type 1): Plan: Pharmacy glycemic team is managing. Appreciate their assistance. A1C = 9.3% (2020). A1C this admission = 7.1%. Uncertain, given his ACD from ESRD, how accurate the a1c is. He has needed an insulin drip intermittently since admission - now back to basal-bolus SC regimen. (5) Mass of left thigh: Plan: Seen by gen surg - nothing to do at this time. Outpatient f/u with future removal if desired by patient. Certainly not urgent. (6) GERD (gastroesophageal reflux disease): Plan: PPI daily (7) Kidney transplant failure and rejection: Plan: now on HD - M/W/F. Appreciate [facility] assistance. s/p removal of temporary HD catheter today. tunneled catheter placed. (8) Back pain: Plan: First 2 days of this stay he c/o pain in the lower t-spine/upper l-spine region. He reported acute onset x 2-3 days prior to admission. Pain now resolved. He does have some mild, intermittent, chronic low back pain at baseline but this has not been an issue while here. MRI lumbar spine official radiology reading by [facility] radiologist - no diskitis seen. No epidural abscess. Dr Acevedo saw in consult - he concurs with the radiologist here - no diskitis. If back pain returns he advises another MRI as he is at high risk of developing diskitis. (9) Tobacco dependence: Plan: Nicoderm patch 14mg/day Suspect Artist to quit (10) Diastolic dysfunction: Plan: grade 2, as seen on echo this is likely due to long-standing, poorly controlled HTN (11) Pulmonary HTN: Plan: mod-severe as seen on echo. etiology? O2 sats are adequate Denies any pulmonary symptoms with activity (12) ESRD (end stage renal disease) on dialysis: Plan: appreciate [facility] assistance schedule - M/W/F Plan: significant other updated at bedside yesterday grand-parents & brother updated at bedside 2 days ago progressing nicely cont to follow most recent blood cx's and await ID consultation again BINH is needed if patient agreeable Admission and Anticipated Discharge Date Admission Date: November 18, 2021 Subjective patient had just returned from his temporary R IJ dialysis catheter removal and placement of a tunneled HD catheter by Dr Blanco he complained of pain over the R neck and left chest prior to the procedure this am he had uneventful night with no pain in any location he ate good yesterday telemetry - P axis change (some P's are upright, others are downgoing) noted over the last 48 hours; NSR however Review of Systems Review of Systems: gen - no fevers or chills cv - no chest pain (prior to his procedure today; now with pain over the tunneled catheter operative site) pulm - no dyspnea or SALAZAR GI - no abd pain or nausea Physical Exam Physical Exam: gen - uncomfortable due to pain from his procedure neck - right IJ dialysis catheter now gone; no hematoma over that region chest - tunneled catheter operative site L upper chest clean, no hematoma mouth - MMM, no thrush plaques heart - RRR, s1 s2, 2/6 AUGUSTINE LSB lungs - CTA b/l abd - soft NT ND BS+ ext - no ankle edema, pulses 2+ b/l skin - dressings intact LUE; no drainage; minimal blood on dressings Results & Data Results & Data ([facility]) Vital Signs (Past 12 Hours) Vital Signs Temp Pulse Pulse Pulse Resp BP BP 11/23/21 18:20 37.0 C 74 117/111 H 11/23/21 17:40 78 167/111 H 11/23/21 17:20 67 171/108 H 11/23/21 17:00 67 143/103 H 11/23/21 16:40 69 158/98 H 11/23/21 16:20 68 147/96 H 11/23/21 16:00 64 151/89 H 11/23/21 15:40 70 144/99 H 11/23/21 15:08 36.9 C 65 11/23/21 15:00 66 136/91 11/23/21 14:40 64 158/96 H 11/23/21 14:30 66 165/106 H 11/23/21 12:23 36.3 C L 63 18 11/23/21 11:41 36.3 C L 62 18 11/23/21 11:15 36.4 C L 64 18 11/23/21 11:05 62 18 11/23/21 10:57 36.3 C L 65 20 11/23/21 09:32 62 20 11/23/21 07:56 36.5 C 58 L 14 168/95 H BP Pulse Ox 11/23/21 18:20 11/23/21 17:40 11/23/21 17:20 11/23/21 17:00 11/23/21 16:40 11/23/21 16:20 11/23/21 16:00 11/23/21 15:40 11/23/21 15:08 11/23/21 15:00 11/23/21 14:40 11/23/21 14:30 11/23/21 12:23 224/116 H 100 11/23/21 11:41 197/113 H 95 11/23/21 11:15 190/93 H 96 11/23/21 11:05 191/98 H 96 11/23/21 10:57 191/98 H 99 11/23/21 09:32 100 11/23/21 07:56 97 Laboratory Results Laboratory Results - last 24 hr 11/22/21 11/22/21 11/22/21 20:44 21:20 21:44 POC Glucose 36 L* 54 L* 62 L* 11/22/21 11/22/21 11/22/21 21:59 22:15 22:30 POC Glucose 49 L* 69 L* 84 11/23/21 11/23/21 11/23/21 00:11 03:38 05:42 POC Glucose 91 157 H 155 H 11/23/21 11/23/21 11/23/21 07:23 09:33 09:35 POC Glucose 210 H 308 H* 285 H 11/23/21 11/23/21 11/23/21 11:05 11:48 16:27 POC Glucose 422 H* 364 H* 107 H 11/23/21 18:26 POC Glucose 121 H Diagnostic Findings blood cultures from 11/21/21 remain NEGATIVE PG Care Time/CCT Total # of Minutes Spent Total Time Spent with Patient: Total time spent is greater than 50% in coordination of care (as documented) at patient's floor/unit and/or counseling patient: Coding Level of Care Code 92059 Subseq Hosp Care Lvl 2 Diagnoses Dialysis AV fistula infection T82.7XXA Bacteremia R78.81 HTN (hypertension) I10 DM type 1 (diabetes mellitus, type 1) E10.9 Mass of left thigh R22.42 GERD (gastroesophageal reflux disease) K21.9 Kidney transplant failure and rejection T86.12; T86.11 Back pain M54.9 Tobacco dependence F17.200 Diastolic dysfunction I51.89 Pulmonary HTN I27.20 ESRD (end stage renal disease) on dialysis N18.6; Z99.2
[2021-11-23] MEDS: CARBOHYDRATES FOR HYPOGLYCEMIA PO PRN (23:49)
[2021-11-24] MEDS: INSULIN ASPART PER UNIT SC SCH ×6 (00:16→20:52)
[2021-11-24] MEDS ORDERED: INSULIN DETEMIR FLEXPEN/FLEX TOUCH 100 UNITS/ML 3ML SC ONE (07:15)
[2021-11-24] MEDS ORDERED: INSULIN ASPART PER UNIT SC SCH ×2 (07:30→11:30)
[2021-11-24] MEDS: SEVELAMER HCL 800 MG TABLET PO SCH ×3 (08:00→16:37)
[2021-11-24] MEDS: PANTOprazole 40 MG TAB PO SCH (08:02)
[2021-11-24] MEDS: LOSARTAN POTASSIUM 50 MG TAB PO SCH (08:03)
[2021-11-24] MEDS: cloNIDine HCL 0.3 MG TAB PO SCH ×2 (08:03→20:49)
[2021-11-24] MEDS: hydrALAZINE TAB 50 MG TAB PO SCH ×2 (08:03→20:49)
[2021-11-24] MEDS: METOPROLOL TARTRATE 25 MG TAB PO SCH ×2 (08:04→20:49)
[2021-11-24] MEDS: amLODIPine BESYLATE 5 MG TAB PO SCH (08:04)
[2021-11-24] MEDS: NICOTINE 14 MG/24 HR PATCH TD SCH (08:05)
--- NOTE | 2021-11-24 12:38 | Hospitalist Progress Note ---
Date of Service November 24, 2021 Assessment & Plan (1) Dialysis AV fistula infection: Plan: POD #5 s/p removal of LUE AV fistula by Dr Blanco. Intra-op Culture with MSSA. Blood cultures from admission positive for MSSA as well. Previously on rocephin 2gm IV daily. Changed to IV ancef once daily on 11/23 Pain control w/ dilaudid and tylenol prn. Temporary R IJ dialysis catheter now removed. Tunneled HD catheter placed 11/[address] Blanco. Blood cx's from 11/21 remain negative. Follow for sterility. Awaiting ID consult (2) Bacteremia: Plan: 2nd to MSSA. Source - LUE AV fistula infection. Repeat blood cx's 11/21 remain negative. Echo completed - AV and PV not well seen, TV not well seen. No obvious vegetations, but he may need BINH to r/o SBE. I asked Dr Rodrigez from [facility] [place] to see him about pursuing the BINH this week. Patient declined again today to have the BINH. He understands this will likely then require a longer course of empiric antibiotics Dr Rodrigez to revisit him today to see if he has changed his mind. Initially the lumbar spine MRI was read as T12/L1 early discitis by [facility]- radiologist. However, our radiologist at [facility] interpreted the study as negative for discitis. Seen by Dr Acevedo this weekend - he, too, does not feel that there is active infection in the spine. Cont IV ancef renally dosed. [facility] ID consult requested to see about length of course recommendation and any other recommendations appreciated Again - given that we did not see his valves well on 2D echo - BINH requested but patient declining it. At minimum needs 2 weeks of IV antibiotics but would need longer course if SBE is seen in the heart if he allows us to perform BINH. Otherwise would consider 4-6 weeks Will need weekly labs while on abx -will also need PICC vs US-guided IV based on length of tx -asked Sports Director to assist with arranging home IV abx (3) HTN (hypertension): Plan: SEVERELY uncontrolled since admission but now much improved Increased his clonidine to 0.3mg BID. Increased his amlodipine to 10mg qam. Continue losartan 100mg daily. Increased his metoprolol to 50mg BID but HRs were, at times, low 50s or lower thus backed down to 25mg BID. Hydralazine restarted - titrated to 50mg BID. Cont to trend the BPs. (4) DM type 1 (diabetes mellitus, type 1): Plan: Pharmacy glycemic team is managing. Appreciate their assistance. A1C = 9.3% (2020). A1C this admission = 7.1%. Uncertain, given his ACD from ESRD, how accurate the a1c is. He has needed an insulin drip intermittently since admission - now back to basal-bolus SC regimen. (5) Mass of left thigh: Plan: Seen by gen surg - nothing to do at this time-is at a site where he frequently injects his insulin SUrgery thinks highly unlikely to be malignant and has appearance of lipoma on imaging. Outpatient f/u with future removal if desired by patient. Certainly not urgent. (6) GERD (gastroesophageal reflux disease): Plan: PPI daily (7) Kidney transplant failure and rejection: Plan: now on HD - M/W/F. Appreciate [facility] assistance. s/p removal of temporary HD catheter tunneled catheter placed. (8) Back pain: Plan: First 2 days of this stay he c/o pain in the lower t-spine/upper l-spine region. He reported acute onset x 2-3 days prior to admission. Pain now resolved. He does have some mild, intermittent, chronic low back pain at baseline but this has not been an issue while here. MRI lumbar spine official radiology reading by [facility] radiologist - no diskitis seen. No epidural abscess. Dr Acevedo saw in consult - he concurs with the radiologist here - no diskitis. If back pain returns he advises another MRI as he is at high risk of developing diskitis. (9) Tobacco dependence: Plan: Nicoderm patch 14mg/day Outside [employer] to quit (10) Diastolic dysfunction: Plan: grade 2, as seen on echo this is likely due to long-standing, poorly controlled HTN (11) Pulmonary HTN: Plan: mod-severe as seen on echo. etiology? O2 sats are adequate Denies any pulmonary symptoms with activity (12) ESRD (end stage renal disease) on dialysis: Plan: appreciate [facility] neph[facility] assistance schedule - M/W/F continue [facility] Plan: Dispo -progressing nicely cont to follow most recent blood cx's and await ID consultation again BINH is needed if patient agreeable hopeful to go home in next 1-2 days after home IV abx arranged and line placed Admission and Anticipated Discharge Date Admission Date: November 18, 2021 Subjective Pt having less pain in left arm and chest today. Denies any problems. Still declining ot have BINH-is tired of having tests done. Discussed length of treatment of IV abx would be shorter if BINH done and negative vs empiric longer course. He is anxious to get home and discussed IV abx at home which made him feel better. No constipation, no nausea, is eating well. No CP or SOB He is agreeable to having labs drawn later this evening as he declined ot have them drawn the last few days Tele with SB, NSR, rates 50-70s. Review of Systems Review of Systems: All systems reviewed & are unremarkable except as noted in HPI & below Physical Exam Constitutional: WD/WN, vitals as above Eyes: + anicteric sclerae Neck: trachea midline, no thyromegaly Respiratory: normal respiratory effort, lungs clear to auscultation Cardiovascular: Rate/Rhythm: regular rate and regular rhythm Heart Sounds: + murmur (2/6 holosystolic murmur at apex) Chest (Breasts): Chest: + vascular access device or port (left perm cath) Gastrointestinal (Abdomen): normal bowel sounds, soft, nontender, no hepatosplenomegaly Musculoskeletal: Extremities: extremities normal to inspection; no cyanosis and no clubbing LUE surgical site with dressing c/d/i Skin: no rashes, warm and dry Neurologic: moves all extremities and awake; no focal motor deficits Psychiatric: A+Ox3, euthymic affect Lymphatic: no lymphedema Results & Data Results & Data ([facility]) Vital Signs (Past 12 Hours) Vital Signs Temp Pulse Resp BP Pulse Ox 11/24/21 12:14 37.0 C 69 20 139/83 98 11/24/21 08:12 36.9 C 68 19 161/102 H 99 11/24/21 03:00 36.8 C 67 18 133/82 98 Laboratory Results none PG Care Time/CCT Total # of Minutes Spent Total Time Spent with Patient: Total time spent is greater than 50% in coordination of care (as documented) at patient's floor/unit and/or counseling patient: Coding Level of Care Code 22132 Subseq Hosp Care Lvl 3 Diagnoses Dialysis AV fistula infection T82.7XXA Bacteremia R78.81 HTN (hypertension) I10 DM type 1 (diabetes mellitus, type 1) E10.9 Mass of left thigh R22.42 GERD (gastroesophageal reflux disease) K21.9 Kidney transplant failure and rejection T86.12; T86.11 Back pain M54.9 Tobacco dependence F17.200 Diastolic dysfunction I51.89 Pulmonary HTN I27.20 ESRD (end stage renal disease) on dialysis N18.6; Z99.2
--- NOTE | 2021-11-24 13:56 | Pharmacy Report ---
Pharmacy Glycemic Short Note 2 - Date of Service November 24, 2021 - Glycemic Short BSG Results (Last 24 hours): 11/23/21 11/23/21 11/23/21 16:27 18:26 20:20 POC Glucose 107 H 121 H 300 H 11/23/21 11/24/21 11/24/21 23:44 00:06 00:21 POC Glucose 46 L* 68 L* 87 11/24/21 11/24/21 11/24/21 01:00 04:26 07:17 POC Glucose 129 H 117 H 181 H 11/24/21 11:17 POC Glucose 90 OUTPATIENT ANTIDIABETIC REGIMEN: * Clarifying basal regimen * Per Dr. Frias - patient's family reported he was not on basal but thinks he is type 1 and patient reported the same. Dr. Frias called [facility] who had same info. PCP office is closed at this time. Dr. Frias to continue to inquire and will follow up. * Novolog * Correction factor: 50 mg/dL/unit, starting above 200 mg/dL * Carb ratio: 15 g CHO/unit * HbA1c outdated, but not repeated given ESRD * HbA1c somewhat unreliable in ESRD patients d/t interactions between the A1c analyzing technique and high levels of urea in ESRD, reduced RBC life span, iron deficiency anemia, and EPO administration. HbA1c > 7.5% in ESRD patient may overestimate the extent of hyperglycemia in ESRD patients. ASSESSMENT: 11/24: * BSGs in last 24h: [id number]. Fasting this AM acceptable at 181mg/dL. Patient did go low again last night. * Patient received 5 units of basal and 12 units of prandial insulin yesterday. Tolerating a diet, and continues on antibiotics. * Increased basal to 6 units this AM and plan for earlier administration in the day to minimize HS hypoglycemia. Novolog parameters loosened further for dinner and HS to minimize larger boluses of prandial insulin before bedtime. 11/23: * Insulin drip weaned off. BSGs dropped into the 30s last night requiring PO treatment. BSGs continue to be erratic ([phone]) today. * Reduced dose of Levemir this afternoon, 5 units X 1. Continue to titrate conservatively. Pt received 5 units Novolog SQ in OR today as well for high BSGs. Has been NPO since midnight - diet ordered for dinner tonight. * Given profound lows last night, loosened Novolog parameters for dinner & HS. Breakfast Novolog correction tightened starting tomorrow AM. Overnight checks tonight. 11/22: * Patient started on insulin drip yesterday for elevated BSGs, continued this AM now running at 0.9 units/hr * Discussed with provider, will trial SQ insulin again to help eliminate frequent BSG checks * Will give 10 units basal x 1 with insulin drip and likely d/c drip with a couple hours overlap * Patient NPO again tonight for perm cath placement 11/21: * BSG of 549 mg/dL this morning, trialed Lantus/Novolog SC only at that time but lunchtime BSG of 510 mg/dL * Restart insulin infusion - unsure of baseline insulin needs, insulin gtt remains safest option to bring BSGs to normal range * Ongoing concern of non-compliance with diet orders/snacking * HD yesterday * Continues on IV Rocephin daily 11/20: * BSGs erratic over last 24hr (some of which are post prandial given non- adherence to diet orders). Patient went to OR yesterday afternoon and received 10units SQ Novolog for a post prandial BSG. BSGs trended down to 113 at bedtime. Received a total of 3 units basal and 13 bolus yesterday. * Has been NPO since yesterday -- Type 1 diet ordered this afternoon. Continues on antibiotics. * Increased to 4units basal this AM. Transitioned to Levemir in attempt to minimize patient reported overnight lows. * Prandial insulin goal BSG adjusted to 110-160mg/dL. No other changes to Novolog parameters at this point. May require tightening if BSGs uncontrolled once consistent diet. 11/19: * BSGs well controlled with insulin infusion. Infusion running at low rates, 0.5unit/hr this AM, and was quite consistent at that rate. Patient is not adhering to diet orders and bringing in outside food/drink which is interfering with management (hospitalist aware). Patient with (+) blood cultures, and receiving iHD which will additionally impact glycemic management. * D/w hospitalist this AM -- plan to convert to SQ. Dr. Frias confirmed patient is not on basal insulin @ home as he hasn't tolerated in past due to low BSGs. However, would like to initiate while admitted given DM1. * Insulin gtt turned off this AM. Lantus 3 units SQ X 1 as drip shut off. Very conservative basal titration -- starting at ~ 0.2unit/kg/day divided. Will plan for an HS scale tonight. * Novolog parameters to start based upon home regimen. CF/CR 50/15 (correction for BSG >200mg/dL). PLAN FOR INPATIENT GLYCEMIC CONTROL: * Levemir 6 units daily @ 0600 * Bolus insulin * Novolog ACHS * AM: CF 40 / CR 15 * 1130: CF 40 /CR 15 * 1630: CF 75 / CR 30 * HS: CF 80
--- NOTE | 2021-11-24 14:27 | Nephrology Progress Note ---
Date of Service November 24, 2021 Assessment & Plan Admission and Anticipated Discharge Date Admission Date: November 18, 2021 Subjective Assessment & Plan (1) CKD (chronic kidney disease) stage V requiring chronic dialysis: Plan: ESRD on MWF HD w/ frequent hyperkalemia, though K today acceptable. - Had temporary line 11/20 - HD with 2.5 lit UF on 11/20 - Next HD on tue Chronically raised BP 2/ non compliance with medication and Tx - Better controlled with increase clonidine to 0.3 mg BID and adding amlodipine, - He will need hydralazine/ alpha albert as he has brittle hypertension - Volume optimization would help. (2) Dialysis AV fistula infection: Plan: hAD AV fistula excised - Vascular on board (3) Bacteremia: Plan: GPC clusters; adjacent to AVF likely source -f/u [facility] cultures from 11/18 -Renally dose abx >>>MRI ruled out spinal abscess, TTE unrevealing for vegetations , would need BINH. (4) Mass of left thigh: Plan: painful and limiting ambulation. -f/u surgical recs; liposarcoma on differential; at higher malignancy risk given txplt hx; PT eval Subjective In better mood today, Pain in the fistula arm and LUE better. Not in Distress. Dialysis yesterday without problems--had 3.5 kilo off Review of Systems Review of Systems: All systems reviewed & are unremarkable except as noted in Subjective Physical Exam Physical Exam: Constitutional:L well developed, we ll nourished,not i n distress, Eyes: EOM intact bilater ally ENMT: Ears: no external ear abnormality N ose: no external n ose abnormality M outh: moist mucou s membranes Neck: no nuchal rigidity Respiratory: normal respiratory effort Auscultat ion: + diminished lung sounds Cardiovascular:L Rate/Rhythm: regul ar rate and regula r rhythm Extremit ies:no bleeding/di schareg at the kristopher gical site. Gastrointestinal ( Abdomen): Inspection/Auscult ation: normal coral l sounds Percussi on/Palpation: abdo men soft; abdomen nontender Musculoskeletal: Extremities: stren gth 5/5 throughout Skin: no rashes, warm an d dry Neurologic: barraza, fluent speech , no tremor Psychiatric: Orientation: alert and oriented x 3 Results & Data ([facility]) Vital Signs (Past 12 Hours) Vital Signs Temp Pulse Resp BP Pulse Ox 11/24/21 12:14 37.0 C 69 20 139/83 98 11/24/21 08:12 36.9 C 68 19 161/102 H 99 11/24/21 03:00 36.8 C 67 18 133/82 98
[2021-11-24] MEDS: ceFAZolin 1000MG 1,000 MG/7.5 ML SYR IV SCH (16:38)
[2021-11-24] MEDS: SODIUM CHLORIDE 0.9% 1000ML 1,000 ML IV SCH (22:21)
[2021-11-24] MEDS: CARBOHYDRATES FOR HYPOGLYCEMIA PO PRN (23:33)
[2021-11-25] MEDS ORDERED: INSULIN DETEMIR FLEXPEN/FLEX TOUCH 100 UNITS/ML 3ML SC SCH ×2 (06:00→07:00)
[2021-11-25] MEDS ORDERED: HEPARIN SOD (PORCINE) 1000 UNIT/ML IV ONE (07:00)
[2021-11-25] MEDS ORDERED: EPOETIN ALFA 4,000 UNIT/ML VIAL IV SCH (07:00)
[2021-11-25] MEDS ORDERED: SODIUM CHLORIDE 0.9% 1000ML 1,000 ML IV PRN ×2 (07:00→09:09)
[2021-11-25] MEDS: ACETAMINOPHEN 325 MG TAB PO PRN (07:57)
[2021-11-25] MEDS: hydrALAZINE TAB 50 MG TAB PO SCH (07:57)
[2021-11-25] MEDS: cloNIDine HCL 0.3 MG TAB PO SCH (07:58)
[2021-11-25] MEDS: METOPROLOL TARTRATE 25 MG TAB PO SCH (07:58)
[2021-11-25] MEDS: SEVELAMER HCL 800 MG TABLET PO SCH (07:58)
[2021-11-25] MEDS: PANTOprazole 40 MG TAB PO SCH (07:58)
[2021-11-25] MEDS: LOSARTAN POTASSIUM 50 MG TAB PO SCH (07:58)
[2021-11-25] MEDS: amLODIPine BESYLATE 5 MG TAB PO SCH (07:59)
[2021-11-25] MEDS: NICOTINE 14 MG/24 HR PATCH TD SCH (07:59)
[2021-11-25] MEDS: INSULIN ASPART PER UNIT SC SCH ×2 (08:04→12:33)
--- NOTE | 2021-11-25 09:30 | Nephrology Progress Note ---
Date of Service November 25, 2021 Assessment & Plan Admission and Anticipated Discharge Date Admission Date: November 18, 2021 Subjective Assessment & Plan (1) CKD (chronic kidney disease) stage V requiring chronic dialysis: Plan: ESRD on MWF HD w/ frequent hyperkalemia, though K today acceptable. - Had temporary line 11/20 - HD with 2.5 lit UF on 11/20 - Next HD later today--3.5 hrs and 4 kilo off as he wants Chronically raised BP 2/ non compliance with medication and Tx - Better controlled with increase clonidine to 0.3 mg BID and adding amlodipine, - He will need hydralazine/ alpha albert as he has brittle hypertension - Volume optimization is the main issue (2) Dialysis AV fistula infection: Plan: hAD AV fistula excised - Vascular on board (3) Bacteremia: Plan: MSSA-- adjacent to AVF likely source -Renally dose abx: plan likely Ancef 2 gm after dialysis. Duration to be decided by ID today >>>MRI ruled out spinal abscess, TTE unrevealing for vegetations (4) Mass of left thigh: Plan: painful and limiting ambulation. -f/u surgical recs; liposarcoma on differential; at higher malignancy risk given txplt hx; PT eval Subjective Pain in the fistula arm and LUE better. Not in Distress. finally agreed not to go AMA. Review of Systems Review of Systems: All systems reviewed & are unremarkable except as noted in Subjective Physical Exam Physical Exam: Constitutional:L well developed, we ll nourished,not i n distress, Eyes: EOM intact bilater ally ENMT: Ears: no external ear abnormality N ose: no external n ose abnormality M outh: moist mucou s membranes Neck: no nuchal rigidity Respiratory: normal respiratory effort Auscultat ion: + diminished lung sounds Cardiovascular:L Rate/Rhythm: regul ar rate and regula r rhythm Extremit ies:no bleeding/di schareg at the kristopher gical site. Gastrointestinal ( Abdomen): Inspection/Auscult ation: normal coral l sounds Percussi on/Palpation: abdo men soft; abdomen nontender Musculoskeletal: Extremities: stren gth 5/5 throughout Skin: no rashes, warm an d dry Neurologic: barraza, fluent speech , no tremor Psychiatric: Orientation: alert and oriented x 3 Results & Data ([facility]) Vital Signs (Past 12 Hours) Vital Signs Temp Pulse Pulse Resp BP Pulse Ox 11/25/21 07:31 36.9 C 58 L 19 158/95 H 100 11/25/21 04:22 36.8 C 63 20 127/76 97 11/24/21 23:15 37.1 C 79 16 149/96 H 98 11/24/21 22:20 79
--- NOTE | 2021-11-25 10:50 | Discharge Summary ---
Date of Service November 25, 2021 Admission HPI Per Admitting Provider Wyatt is a 26-year-old male with a past medical history of kidney transplant with failure and rejection, type 1 diabetes, dialysis dependence, diabetes mellitus who presents after dialysis as a code sepsis with warmth/redness suspicious for cellulitis over his fistula. Potassium prior to dialysis was 6.7, on admission 4.8. Patient undergoes Tuesday dialysis. On arrival to ER patient is treated with Zosyn, did receive a postdialysis dose of vancomycin. Patient somnolent, arouses with some difficulty then is well oriented and answers question sapproprioately L Leg pain up into back x2 days. Increased nat since last night, went to ER in [place] --> wa home. Progressively weak This AM at dialysis +fever, chills, couldn't walk after. Fever chills worsened after fistula access. Fistula red and warm, pt not sure how long thinks a day or two. Did get vanco after access. Denies other skin infections. Reports he feels achy all over, but denies shortness of breath, difficulty breathing, chest pain, chest pressure, nausea, vomiting. Dr. Vielka Groves. Was to get fistulagram and possible catheter placement tomorrow. Evita Cardona PCP unavailable by phone, mother is not aware or most recent meds, pt does not have med list. Per [facility] (pt reprots fills all meds there) meds current as follows" Sevelemer 800mg QID, 2 with snacks Novolog 100u FLEXPEN SSI max 60units day Metoprolol Tart 50mg one a day Doxazosin 2mg BID Clonidine 0.3mg TWICE dialy (per pt HS) Losartan 100mg daily NO AMLODIPINE NO CARVEDILOL Medical History: Reviewed Medications: Reviewed Surgical History: Reviewed Allergies: Reviewed Social History:Cigarettes, none recently. 0.5ppd. EtoH none. No RR/MM. Code Status: Full Code Principal Diagnosis MSSA Bacteremia, Infected AV fistula, ESRD on HD Discharge Exam Constitutional WD/WN, vitals as above Eyes + anicteric sclerae Neck trachea midline, no thyromegaly Respiratory normal respiratory effort, lungs clear to auscultation Cardiovascular Rate/Rhythm: regular rate and regular rhythm Heart Sounds: + murmur (2/6 holosystolic murmur at apex) Chest (Breasts) Chest: + vascular access device or port (left perm cath) Gastrointestinal (Abdomen) normal bowel sounds, soft, nontender, no hepatosplenomegaly Musculoskeletal Extremities: + extremities abnormal to inspection (LUE with dressing in place,scant dried blood), no cyanosis and no clubbing +TTP over left greater trochanter, no erythema or mass Skin no rashes, warm and dry Neurologic moves all extremities and awake; no focal motor deficits Psychiatric A+Ox3, euthymic affect Lymphatic no lymphedema Discharge Data Allergies Allergy/AdvReac Type Severity Reaction Status Date / Time baclofen Allergy Unknown HIVES Verified 04/16/20 10:59 Iodinated Contrast Media Allergy Unknown RASH Verified 04/16/20 10:59 Sulfa (Sulfonamide Allergy Unknown RASH Verified 04/16/20 10:59 Antibiotics) Consultations 11/18/21 13:14 ED Decision to Admit Stat 11/18/21 16:38 Consult Nephrology Routine Consult Vascular Surgery Routine 11/19/21 07:56 Consult General Surgery Routine 11/21/21 19:40 Consult Orthopedic Surgery Routine 11/23/21 07:46 Consult Infectious Diseases Routine Procedures Performed Operation Date: 11/19/21 09:40 Actual Procedures p Left Upper Extremity Arteriovenous Fistula Removal.(Left) - Jeronimo Blanco MD Operation Date: 11/20/21 12:00 <No data on this case meets the specified criteria> Operation Date: 11/20/21 15:15 Actual Procedures p Insertion Temporary Dialysis Catheter, Right External Jugular Approach, Ultrasound Localization of Right External Jugular Vein, Fluoroscopy for Positioning(Right) - Jeronimo Blanco MD Operation Date: 11/23/21 10:20 Actual Procedures p Insertion of Perm Catheter Insertion, Left Jugular Approach, Ultrasound Localization of Left Internal Jugular Vein, Fluoroscopy for Positioning, Removal of Temporary Dialysis Catheter(Left) - Jeronimo Blanco MD Ordered Studies 11/18/21 11:37 US venous doppler LE LT Stat 11/18/21 11:39 CT abd pelvis wo con Stat US arterial duplex LE LT Stat 11/18/21 20:41 CT femur LT wo con Routine 11/19/21 08:16 US arterial duplex UE LT Urgent 11/19/21 14:30 FL fluoroscopy <1hr Routine 11/20/21 09:09 EV cvc insert non tunnel Routine US EV guide vascular access Routine 11/20/21 13:32 MR lumbar spine wo con Urgent 11/23/21 07:33 EV cvc insrt tnnl with [facility] dean Routine 11/23/21 07:34 US EV guide vascular access Routine Hospital Course (1) Dialysis AV fistula infection: POD #6 s/p removal of LUE AV fistula by Dr Blanco. Intra-op Culture with MSSA. Blood cultures from admission positive for MSSA as well. Previously on rocephin 2gm IV daily. Changed to IV ancef once daily on 11/23 Pain control w/ dilaudid and tylenol prn. Temporary R IJ dialysis catheter now removed. Tunneled HD catheter placed 11/[address] Blanco. Blood cx's from 11/21 remain negative. ID consult still pending at time of discharge--> can f/u as outpt Plan is to change dosing of Ancef to 2000mg IV 3x/week after HD-Rx sent to dialysis center. If Ancef cannot be delivered by this Tuesday at time next due, I did send a Rx for a one time dose of Vanco for Tuesday at dialysis Needs once weekly CBC, CMP, CRP while on Ancef f/u with Vascular for suture removal on 12/10/21 (2) Bacteremia: 2nd to MSSA. Source - LUE AV fistula infection. Repeat blood cx's 11/21 remain negative. Echo completed - AV and PV not well seen, TV not well seen. No obvious vegetations, but he needs BINH to r/o SBE. Patient declined to have the BINH. He understands this will likely then require a longer course of empiric antibiotics Initially the lumbar spine MRI was read as T12/L1 early discitis by [facility]- radiologist. However, our radiologist at [facility] interpreted the study as negative for discitis. Seen by Dr Acevedo this weekend - he, too, does not feel that there is active infection in the spine. [facility] requested to see about length of course recommendation and any other recommendations appreciated-again, pending at time of dc As above, plan for 6 weeks IV Ancef 2000mg 3x/week w/ HD so then he would not need a PICC line (to preserve veins due to being a young HD patient) Weekly labs F/u with ID as outpt (3) HTN (hypertension): SEVERELY uncontrolled since admission but now much improved resume home meds upon discharge to include clonidine patch, amlodipine 10mg, losartan 100mg, Coreg 50mg bid, and Hydralazine 100mg bid Monitor as outpt with Nephrology (4) DM type 1 (diabetes mellitus, type 1): Pharmacy glycemic team is managing. Appreciate their assistance. A1C = 9.3% (2020). A1C this admission = 7.1%. Uncertain, given his ACD from ESRD, how accurate the a1c is. He has needed an insulin drip intermittently since admission - now back to basal-bolus SC regimen. He tends to get quite hypoglycemic with even small doses of Levemir, therefore he does no tuse basal insulin at home resume home Novolog (5) Mass of left thigh: Seen by gen surg - nothing to do at this time-is at a site where he frequently injects his insulin SUrgery thinks highly unlikely to be malignant and has appearance of lipoma on imaging. Outpatient f/u with future removal if desired by patient. Certainly not urgent. (6) GERD (gastroesophageal reflux disease): PPI daily prn (7) Kidney transplant failure and rejection: now on HD - M/W/F. Appreciate [facility] assistance. s/p removal of temporary HD catheter tunneled catheter placed. (8) Back pain: First 2 days of this stay he c/o pain in the lower t-spine/upper l-spine region. He reported acute onset x 2-3 days prior to admission. Pain now resolved. He does have some mild, intermittent, chronic low back pain at baseline but this has not been an issue while here. MRI lumbar spine official radiology reading by [facility] radiologist - no diskitis seen. No epidural abscess. Dr Acevedo saw in consult - he concurs with the radiologist here - no diskitis. If back pain returns he advises another MRI as he is at high risk of developing diskitis. (9) Tobacco dependence: Nicoderm patch 14mg/day Counseled to quit (10) Diastolic dysfunction: grade 2, as seen on echo this is likely due to long-standing, poorly controlled HTN (11) Pulmonary HTN: mod-severe as seen on echo. etiology? O2 sats are adequate Denies any pulmonary symptoms with activity (12) ESRD (end stage renal disease) on dialysis: appreciate [facility] nephrology assistance schedule - M/W/F continue Sevelamer (13) Greater trochanteric bursitis of left hip: with some pain in left greater trochanteric bursa region with tenderness, no erythema on day of discharge suspect secondary to being sedentary and in bed quite a bit advised tylenol for pain, icing, stretching, f/u PCP could consider steroid injection in future if not improving Dispo -improved, stable for dc after HD today Total Time Total Time Spent Total Time Spent (In Minutes): 45 min Discharge Plan Discharge Items Patient Disposition: Home - Self-Care Reason For Visit: SEPSIS, SUSPECT L FISTULA CELLULITIS Discharge Diagnosis: Staphylococcus bacteremia, infected AV fistula Condition on Discharge: Good Activity: As commented below Lifting: No more than 5 pounds Bathing: Keep incision dry Non-emergency contact: Primary Care Provider and Surgeon Call non-emergency contact if: you have any medication questions, your symptoms worsen, your pain is not controlled, your pain is worsening, you have a fever, your temperature is above 101, your wound has increased redness, your wound has increased drainage and your wound pain has increased Follow-up/Referrals: Rafael Tony [Physician] - 12/02/21 9:40 am (Primary care with [facility] in [place]. Please disregard the listed [place] address. Your appointme nt to see Dr. Tony will be at address: [address] [place] [address] [place] [address].) Jeronimo Blanco MD [Physician] - (Follow up as scheduled on 12/10/21.) Diet: Carb Count or DM1 and Dialysis Renal Addtl Attending Provider Instructions: Please continue the antibiotics with dialysis for 6 weeks with the final date being on 01/01/22. You will need once weekly blood work while on the antibiotics to include a CBC, CMP, and CRP. Resume your usual dialysis schedule after discharge. Pending Studies at Discharge: Yes (Final blood culture results-no growth to date) Stand-Alone Forms: My [employer], Smoking Cessation Medications and DC Order Prescriptions: New cefazolin 2 gram recon soln 2 g IV 3XWK Qty: 18 RF: 0 vancomycin 1,000 mg recon soln 1,000 mg IV ONCE Qty: 1 RF: 0 Continued insulin aspart U-100 [Novolog Flexpen U-100 Insulin] 100 unit/mL (3 mL) insulin pen See Rx Instructions SQ .COMPLEX Qty: 15 RF: 4 amlodipine 10 mg tablet 10 mg PO DAILY Qty: 90 RF: 3 carvedilol 25 mg tablet 50 mg PO BID Qty: 360 RF: 3 cholecalciferol (vitamin D3) 1,250 mcg (50,000 unit) capsule 1,250 mcg PO WEEKLY Qty: 12 RF: 3 (DME) OneTouch Ultra Blue Test Strip Strip See Rx Instructions .ROUTE .MEDSUPPLY Qty: 300 RF: 3 cinacalcet [Sensipar] 30 mg tablet 30 mg PO DAILY Qty: 90 RF: 3 calcium acetate(phosphat bind) 667 mg capsule 667 mg PO TID Qty: 270 RF: 3 (DME) lancets [FreeStyle Lancets] 28 gauge misc See Rx Instructions .ROUTE .MEDSUPPLY Qty: 300 RF: 3 omeprazole 40 mg capsule,delayed release(DR/EC) 40 mg PO DAILY PRNRF: 0 hydralazine 100 mg tablet 100 mg PO BID Qty: 180 RF: 3 clonidine 0.3 mg/24 hr patch weekly 1 patch topical .weekly Qty: 4 RF: 5 Discharge Orders: Discharge Order (Routine); Ordered 11/25/21 Ordered By: Jolanta Cuellar Admission Data Admit Date/Time: 11/18/21 14:31 Attending Provider: Jolanta Cuellar Admit Provider: Morro Frias Primary Care Provider: PCP,NO Other Providers: Morro Frias ; Deonna Orellana ; Jeronimo Blanco ; Bienvenido Acevedo ; Daniel Traore ; Weston Lewis ; Richa Armstrong ; Benjamin Santiago I. ; Cristi Melendez II ; Daly Willett ; Ba Mensah ; Daniel Mitchell Coding Level of Care Code D/C DAY MANAGEMENT >30 MINS Diagnoses Dialysis AV fistula infection T82.7XXA Bacteremia R78.81 HTN (hypertension) I10 DM type 1 (diabetes mellitus, type 1) E10.9 Mass of left thigh R22.42 GERD (gastroesophageal reflux disease) K21.9 Kidney transplant failure and rejection T86.12; T86.11 Back pain M54.9 Tobacco dependence F17.200 Diastolic dysfunction I51.89 Pulmonary HTN I27.20 ESRD (end stage renal disease) on dialysis N18.6; Z99.2 Greater trochanteric bursitis of left hip M70.62
== END 2021-11-25 14:30 | disposition home or self-care (01) | DRG 252 ==
LOC: ED 11:21 → 2E 14:31 → SUATTDRO 14:31 → 2E 15:17